=== PATIENT | female | born 1965 | race Caucasian/White ===

== ENCOUNTER → 2019-04-17 09:55 | Outpatient (BNVA) | payer MEDICARE, MEDICAID, SELFPAY | PROVIDERS: Family Provider Family Medicine; PCP Family Medicine; Visit Provider Specialist | DX: G43.011 Migraine without aura, intractable, with status migrainosus (principal) | CPT/HCPCS: 99213 ==

== ENCOUNTER → 2019-07-18 10:53 | Outpatient (BNVA) | payer MEDICARE, MEDICAID, SELFPAY | PROVIDERS: Family Provider Family Medicine; PCP Family Medicine; Visit Provider Specialist | DX: G43.711 Chronic migraine without aura, intractable, with status migrainosus (principal) | CPT/HCPCS: 99213 ==

== ENCOUNTER 2019-09-07 11:11 | Outpatient (CLI) | payer MEDICARE, MEDICAID, SELFPAY ==
--- NOTE | 2019-09-07 11:20 | MM_ITS ---
WS: [id number] BILATERAL DIGITAL SCREENING MAMMOGRAM WITH CAD CLINICAL INFORMATION: SCREENING HISTORY: Screening mammogram. No current complaints. COMPARISON: June 27, 2018 TECHNIQUE: Bilateral CC and MLO views. FINDINGS: Fatty-replaced breasts bilaterally. No suspicious focal mass, asymmetry, calcifications, or naval architect ural distortion. No evidence of malignancy. MM/[id number] IMPRESSION: BI-RADS: 1-Negative FOLLOW UP: 1 Year Follow-up Recommend return to annual screening mammography.
== END 2019-09-07 11:12 | disposition home or self-care (01) ==
LOC: RADSHAW 11:19
PROVIDERS: PCP Family Medicine; Visit Provider Family Medicine
DX: Z12.31 Encounter for screening mammogram for malignant neoplasm of breast (principal)
CPT/HCPCS: 77067

== ENCOUNTER → 2019-10-08 14:48 | Outpatient (BNVA) | payer MEDICARE, MEDICAID, SELFPAY | PROVIDERS: Family Provider Family Medicine; PCP Family Medicine; Visit Provider Specialist | DX: G43.711 Chronic migraine without aura, intractable, with status migrainosus (principal) | CPT/HCPCS: 99213 ==

== ENCOUNTER → 2020-02-20 09:31 | Outpatient (BNVA) | payer MEDICARE, MEDICAID, SELFPAY | PROVIDERS: Family Provider Family Medicine; PCP Family Medicine; Visit Provider Specialist | DX: G43.711 Chronic migraine without aura, intractable, with status migrainosus (principal) | CPT/HCPCS: 99213 ==

== ENCOUNTER → 2020-07-16 10:33 | Outpatient (BNVA) | payer MEDICARE, MEDICAID, SELFPAY | PROVIDERS: Family Provider Family Medicine; PCP Family Medicine; Visit Provider Specialist | DX: G43.711 Chronic migraine without aura, intractable, with status migrainosus (principal); H90.5 Unspecified sensorineural hearing loss | CPT/HCPCS: 99213; 99214 ==

== ENCOUNTER 2020-09-08 11:25 | Outpatient (CLI) | payer MEDICARE, MEDICAID, SELFPAY ==
--- NOTE | 2020-09-08 11:32 | MM_ITS ---
WS: [id number] BILATERAL SCREENING DIGITAL MAMMOGRAM WITH CAD HISTORY: SCREENING COMPARISON: 09/07/2019 and 06/27/2018 Bilateral CC and MLO views submitted. Computer aided detection analyzed. Breast composition: There are scattered areas of fibroglandular density. No suspicious masses, microc alcifications or architectural distortion. MM/[id number] IMPRESSION: BI-RADS: 1-Negative FOLLOW UP: 1 Year Follow-up
== END 2020-09-08 11:26 | disposition home or self-care (01) ==
LOC: RADSHAW 11:28
PROVIDERS: PCP Family Medicine; Visit Provider Family Medicine
DX: Z12.31 Encounter for screening mammogram for malignant neoplasm of breast (principal)
CPT/HCPCS: 77067

== ENCOUNTER 2020-12-04 12:42 | Outpatient (CLI) | payer MEDICARE, MEDICAID, SELFPAY ==
--- NOTE | 2020-12-04 13:45 | MR_ITS ---
WS: [id number] MRI RIGHT ELBOW without CONTRAST. COMPARISON: Radiograph 10/28/2020. Multiplanar, multisequence imaging is performed without contrast. Patient was unable to remain still for this examination. Patient was unable to complete the examinati on. Normal alignment at the elbow joint. No fracture is identified. No marrow edema. No joint effusion. Q uality of this study is not sufficient to exclude tendon or ligament tears. There is not a significan t amount of joint effusion or marrow edema. Radial tubercle was not included on the axial images. MR/MR elbow RT wo con* [id number] IMPRESSION: 1. Incomplete evaluation of the RIGHT elbow. Patient was unable to complete th is examination. 2. No fracture or marrow edema or dislocation. 3. Cannot exclude tendon or ligament injury on this examination.
== END 2020-12-04 12:43 | disposition home or self-care (01) ==
PROVIDERS: PCP Family Medicine; Visit Provider Orthopaedic Surgery
DX: M25.521 Pain in right elbow (principal)
CPT/HCPCS: 73221

== ENCOUNTER → 2021-01-13 10:18 | Outpatient (BNVA) | payer MEDICARE, MEDICAID, SELFPAY | PROVIDERS: PCP Family Medicine; Visit Provider Specialist | DX: G43.711 Chronic migraine without aura, intractable, with status migrainosus (principal); H91.90 Unspecified hearing loss, unspecified ear | CPT/HCPCS: 99213; 99214 ==

== ENCOUNTER → 2021-07-14 10:33 | Outpatient (BNVA) | payer MEDICARE, MEDICAID, SELFPAY | PROVIDERS: PCP Family Medicine; Visit Provider Specialist | DX: G43.711 Chronic migraine without aura, intractable, with status migrainosus (principal); H91.90 Unspecified hearing loss, unspecified ear | CPT/HCPCS: 99214 ==

== ENCOUNTER 2021-09-07 13:26 | Outpatient (CLI) | payer MEDICARE, MEDICAID, SELFPAY ==
--- NOTE | 2021-09-07 13:45 | MR_ITS ---
WS: [id number] MRI BRAIN WITHOUT CONTRAST HISTORY: G43.711 - Chronic migraine without aura, intractable. COMPARISON: 06/02/2010 TECHNIQUE: Diffusion imaging, multiplanar T1, T2 and FLAIR imaging obtained. Due to patient's limitations study is compromised by motion artifact. No evidence for acute infarct or hemorrhage. Lima-white matter differentiation is normal. Scattered T 2 and FLAIR signal hyperintensities predominantly in the subcortical white matter. Taking into consid eration the amount of motion the pattern has not significantly changed or progressed since the prior study. No large territory infarct. No hemorrhage. No remote or acute infarcts are volume loss. Ventricles and extra-axial spaces are normal. No inferior displacement of cerebellar tonsils. The sella turcica and pituitary gland are unremarkabl e. Dural venous sinuses and [place] demonstrate no abnormality on this unenhanced studies. Paranasal sinuses: Clear. Mastoid air cells: Normal. Calvarium and scalp: Intact. MR/MR head wo con* [id number] IMPRESSION: 1. Study compromised by motion artifact. 2. Scattered small vessel ischemic disease in the subcortical white matter. Si milar to the prior study from 2010. Differential as before includes diabetes, h ypertension and smoking history. No acute infarct.
== END 2021-09-07 13:27 | disposition home or self-care (01) ==
LOC: RAD 13:32
PROVIDERS: PCP Family Medicine; Visit Provider Specialist
DX: G43.711 Chronic migraine without aura, intractable, with status migrainosus (principal)
CPT/HCPCS: 70551

== ENCOUNTER 2021-10-12 10:04 | Outpatient (CLI) | payer MEDICARE, MEDICAID, SELFPAY ==
--- NOTE | 2021-10-12 10:09 | MM_ITS ---
WS: [id number] SCREENING DIGITAL MAMMOGRAM WITH CAD HISTORY: SCREENING COMPARISON: 09/08/2020, 09/07/2019 Bilateral CC and MLO views submitted. Computer aided detection analyzed. Breast composition: The breasts are almost entirely fatty. No suspicious masses, microcalcifications or architectural distortion. MM/[place] [id number] IMPRESSION: BI-RADS: 1-Negative FOLLOW UP: 1 Year Follow-up
== END 2021-10-12 10:05 | disposition home or self-care (01) ==
LOC: RAD 10:04
PROVIDERS: PCP Family Medicine; Visit Provider Family Medicine
DX: Z12.31 Encounter for screening mammogram for malignant neoplasm of breast (principal)
CPT/HCPCS: 77067

== ENCOUNTER → 2021-10-20 11:01 | Outpatient (BNVA) | payer MEDICARE, MEDICAID, SELFPAY | PROVIDERS: PCP Family Medicine; Visit Provider Specialist | DX: G43.711 Chronic migraine without aura, intractable, with status migrainosus (principal) | CPT/HCPCS: 99213; 99214 ==

== ENCOUNTER → 2022-05-11 11:38 | Outpatient (BNVA) | payer MEDICARE, MEDICAID, SELFPAY | PROVIDERS: PCP Family Medicine; Visit Provider Specialist | DX: G43.711 Chronic migraine without aura, intractable, with status migrainosus (principal) | CPT/HCPCS: 99214 ==

== ENCOUNTER 2022-10-27 09:59 | Outpatient (CLI) | payer MEDICARE, MEDICAID, SELFPAY ==
--- NOTE | 2022-10-27 10:10 | MM_ITS ---
WS: [id number] BILATERAL SCREENING DIGITAL TOMOSYNTHESIS MAMMOGRAM WITH CAD HISTORY: SCREENING COMPARISON: 10/12/2021 and 09/08/2020 Bilateral CC and MLO views with tomosynthesis and synthetic mammography submitted. Computer aided det ection analyzed. Breast composition: The breasts are almost entirely fatty. No suspicious masses, microcalcifications or architectural distortion. IMPRESSION: MM/[place] [id number] BI-RADS: 1-Negative FOLLOW UP: 1 Year Follow-up
== END 2022-10-27 10:00 | disposition home or self-care (01) ==
LOC: RAD 10:02 → MOBLMAM 10:09
PROVIDERS: PCP Family Medicine; Visit Provider Family Medicine
DX: Z12.31 Encounter for screening mammogram for malignant neoplasm of breast (principal)
CPT/HCPCS: 77063; 77067

== ENCOUNTER → 2023-05-10 09:59 | Outpatient (BNVA) | payer MEDICARE, MEDICAID, SELFPAY | PROVIDERS: PCP Family Medicine; Visit Provider Specialist | DX: G43.711 Chronic migraine without aura, intractable, with status migrainosus (principal); M54.2 Cervicalgia | CPT/HCPCS: 99214 ==

== ENCOUNTER → 2023-06-23 09:42 | Outpatient (BNVA) | payer MEDICARE, MEDICAID, SELFPAY | PROVIDERS: PCP Family Medicine; Visit Provider Anesthesiology Pain Medicine | DX: M25.78 Osteophyte, vertebrae (principal); M47.896 Other spondylosis, lumbar region; G89.29 Other chronic pain; M54.12 Radiculopathy, cervical region; M25.521 Pain in right elbow; G43.711 Chronic migraine without aura, intractable, with status migrainosus | CPT/HCPCS: 72040; 72110; 99204 ==

== ENCOUNTER → 2023-07-04 14:03 | Outpatient (BNVA) | payer MEDICARE, MEDICAID, SELFPAY | PROVIDERS: PCP Family Medicine; Visit Provider Anesthesiology Pain Medicine | DX: M79.18 Myalgia, other site (principal); M54.9 Dorsalgia, unspecified; M25.521 Pain in right elbow; G43.711 Chronic migraine without aura, intractable, with status migrainosus; M54.12 Radiculopathy, cervical region | CPT/HCPCS: 20553; 99214 ==

== ENCOUNTER 2023-08-03 11:08 | Outpatient (CLI) | payer MEDICARE, MEDICAID, SELFPAY | END 2023-08-03 11:09 | disposition home or self-care (01) | LOC: RAD 11:08 | PROVIDERS: PCP Family Medicine; Visit Provider Anesthesiology Pain Medicine | DX: M54.12 Radiculopathy, cervical region (principal); M25.521 Pain in right elbow; G43.711 Chronic migraine without aura, intractable, with status migrainosus | CPT/HCPCS: 99214 ==

== ENCOUNTER → 2023-08-24 12:49 | Outpatient (BNVA) | payer MEDICARE, MEDICAID, SELFPAY | PROVIDERS: PCP Family Medicine; Visit Provider Anesthesiology Pain Medicine | DX: M79.18 Myalgia, other site (principal); M25.521 Pain in right elbow; G43.711 Chronic migraine without aura, intractable, with status migrainosus; M54.12 Radiculopathy, cervical region | CPT/HCPCS: 20553; 99214; J1010; J3490 ==

== ENCOUNTER 2024-02-13 08:29 | Outpatient (CLI) | payer MEDICARE, MEDICAID, SELFPAY ==
--- NOTE | 2024-02-13 08:40 | MM_ITS ---
WS: [id number] DIAGNOSTIC BILATERAL DIGITAL BREAST TOMOSYNTHESIS MAMMOGRAPHY WITH CAD LEFT breast ultrasound, limited HISTORY: MASTODYNIA COMPARISON: 10/27/2022, 10/12/2021 TECHNIQUE: Bilateral craniocaudad, mediolateral oblique, and mediolateral views are submitted with to mosynthesis and SM. Spot compression LEFT CC and MLO. Computer aided detection utilized. Breast composition: The breasts are almost entirely fatty. There are a few very minimal scattered calcifications. There is a superficial mass in the LEFT breast at 6:00 middle depth measuring 12 x 10 x 11 mm. This will be evaluated by ultrasound. LEFT breast ultrasound, limited as an epidermal complex fluid collection corresponding to the palpabl e mass in the mass visible on mammography. Masses near 4 o'clock position in the epidermal layer. Com plex collection measures 1.6 x 0.4 x 1.4 cm with minimal peripheral vascularity. There is no tract ex tending superficial. MM/MM diag BI tomosynthesis [id number] IMPRESSION: BI-RADS: 2 - Benign. FOLLOW UP: 1 Year Follow-up Palpable abnormality corresponds to a complex mass which is epidermal in locati on. This is most likely an infected hair follicle or epidermal cyst with inflam mation.
== END 2024-02-13 08:30 | disposition home or self-care (01) ==
PROVIDERS: PCP Family Medicine; Visit Provider Family Medicine
DX: N60.02 Solitary cyst of left breast (principal); R92.313 Mammographic fatty tissue density, bilateral breasts
CPT/HCPCS: 76642; 77062; G0279

== ENCOUNTER 2024-06-27 16:22 | Inpatient (IN) | payer MEDICARE, MEDICAID, SELFPAY ==
--- OUTSIDE RECORDS SUMMARY | 2024-06-27 16:26 | XMS_ITS | Encounter Summary ---
Author Organization [facility] Address [address] [place] [address] Care Team Providers Care Hydraulic Dredge Operator Name Role Phone Wilda Sloan MD Primary Care Provider [phone] Encounter Details Date Type Department Care Team (Late st Contact Info) Description 06/06/2024 External Device Data [facility] ABSTRACTION Provider, Abstract NO ADDRESS ON FILE Social History Tobacco Use Types Packs/Day Years Used Date Smoking Tobacco: Never Smokeless Tobacco: Never Feeling Safe Answer Date Recorded Are you in a relationship wi th someone who hurts you emotionally and/or physically? No 02/06/2024 Comments No Sex and Gender Information Value Date Recorded Sex Assigned at Not on file Legal Sex Female 4:41 AM CUSTOM CLOTHIER Gender Identity Not on file Sexual Orientation Not on file documented as of this encounter Plan of Treatment Not on file documented as of this encounter Visit Diagnoses Not on filedocumented in this encounter Care Teams Hydraulic Dredge Operator Relationship Specialty Start Date End Date Wilda Sloan MD [address] [place] [address] PCP - General Family Practice 10/28/20 documented as of this encounter
--- OUTSIDE RECORDS SUMMARY | 2024-06-27 16:26 | XMS_ITS | Encounter Summary ---
Author Organization [facility] Address [address] [place] [address] Care Team Providers Care Micromatic Hone Operator Name Role Phone Unavailable Primary Care Provider Unavailabl e Reason for Referral * Outpatient Services (Routine) - Closed Specialty Diagnoses / Procedures Referred By Contac t Referred To Contact Diagnoses Abnormal mammogram, unspecified Procedures MAMMO DIGITAL DIAG BILAT Wilda Sloan MD [address] [place] [address] Phone: tel: fax: [facility] Pre-Registration [place] CALL TO MAKE APPOINTMENT ONLY [address] [place] [address] Phone: tel: fax: Referral ID Status Reason Start Date Expiration Date V isits Requested Visits Authorized [id number] Closed [facility]ULE ([facility]) 04/25/2012 05/26/2013 1 1 RAL SCIENCES DEPARTMENT CHAIR Encounter Details Date Type Department Care Team (Latest Contact Info) Description 04/25/2012 Ancillary Orders [facility] Pre-Registration [place] CALL TO MAKE APPOINTMENT ONLY [address] [place] [address] Wilda Sloan MD [address] [place] [address] Abnormal mammogram, unspecified Social History Tobacco Use Types Packs/Day Years Used Date Smoking Tobacco: Never Assessed Comments Unknown Sex and Gender Information Value Date Recorded Sex Assigned at Not on file Legal Sex Female 7:07 AM NATURAL SCIENCES DEPARTMENT CHAIR Gender Identity Not on file Sexual Orientation Not on file Occupation Industry Job Start Date Job End Date Not on file Not on file Not on file Not on file documented as of this encounter Plan of Treatment Not on file documented as of this encounter Results * MAMMO DIGITAL DIAG BILAT (05/24/2012 1:28 PM NATURAL SCIENCES DEPARTMENT CHAIR) Anatomical Region Laterality Modality Breast Bilateral Mammography 05/24/2012 12:4 8 PM NATURAL SCIENCES DEPARTMENT CHAIR Narrative 05/24/2012 3:23 PM NATURAL SCIENCES DEPARTMENT CHAIR BILATERAL DIAGNOSTIC MAMMOGRAM 05/24/2012 The patient had a baseline exam a year ago and had additional evaluation for two very small nodules side by side on the right which were not seen sonographically and this is a second six-month followup on the right and yearly followup on the left. ??She has no complaints. Bilateral craniocaudal and oblique views show predominantly fatty-replaced breast tissue. ??The two tiny nodules on the right are stable. ??No suspicious masses are identified. ??A few coarse benign type calcifications are seen which are stable. ??No discrete abnormality is seen on the left. ??There is no significant change compared with prior exams of 11/23/2011, 05/20/2011, and 05/05/2011. This digital mammogram was also analyzed by the Computer Aided Detection System (CAD), [employer] Image[employer]aturecker, Version 8.3. CONCLUSION ??No significant mammographic change is seen. ??I would now recommend followup screening mammogram in one year. ?? Patient received a result/recommendation letter. ?? KB/ekp ? - uploaded from [employer] Procedure Note Aurora Valenzuela MD - 05/24/2012 BILATERAL DIAGNOSTIC MAMMOGRAM 05/24/2012 The patient had a baseline exam a year ago and had additional evaluation for two very small nodules side by side on the right which were not seen sonographically and this is a second six-month followup on the right and yearly followup on the left. She has no complaints. Bilateral craniocaudal and oblique views show predominantly fatty-replaced breast tissue. The two tiny nodules on the right are stable. No suspicious masses are identified. A few coarse benign type calcifications are seen which are stable. No discrete abnormality is seen on the left. There is no significant change compared with prior exams of 11/23/2011, 05/20/2011, and 05/05/2011. This digital mammogram was also analyzed by the Computer Aided Detection System (CAD), [employer] Image[employer]aturecker, Version 8.3. CONCLUSION No significant mammographic change is seen. I would now recommend followup screening mammogram in one year. Patient received a result/recommendation letter. KB/ekp - uploaded from [employer] us Wilda Sloan MD MAMMO ORDERABLES Final Res ult documented in this encounter Visit Diagnoses Diagnosis Abnormal mammogram, unspecified Abnormal mammogram, unspecified documented in this encounter
--- OUTSIDE RECORDS SUMMARY | 2024-06-27 16:26 | XMS_ITS | Encounter Summary ---
Author Organization [facility] Address [address] [place] [address] Care Team Providers Care Cd Storage And Materials Make Up Helper Name Role Phone Unavailable Primary Care Provider Unavailabl e Reason for Referral * Outpatient Services (Routine) - Closed Specialty Diagnoses / Procedures Referred By Contac t Referred To Contact Diagnoses Other (abnormal) findings on radiological examination of breast Procedures MAMMO BREAST US RT Wilda Sloan MD [address] [place] [address] Phone: tel: fax: Referral ID Status Reason Start Date Expiration Date Visits Re quested Visits Authorized [id number] Closed 05/11/2011 05/10/2012 1 1 CONDITIONER HELPER Encounter Details Date Type Department Care Team (Latest Contact Info) Description 05/11/2011 Ancillary Orders [facility] [address] [address] Wilda Sloan MD [address] [place] [address] Other (abnormal) findings on radiological examination of breast Social History Tobacco Use Types Packs/Day Years Used Date Smoking Tobacco: Never Assessed Comments Unknown Sex and Gender Information Value Date Recorded Sex Assigned at Not on file Legal Sex Female 7:07 AM LEAF CONDITIONER HELPER Gender Identity Not on file Sexual Orientation Not on file documented as of this encounter Plan of Treatment Not on file documented as of this encounter Results * (ABNORMAL) MAMMO BREAST US RT (05/20/2011 2:55 PM LEAF CONDITIONER HELPER) Anatomical Region Laterality Modality Breast Right Ultrasound 05/20/2011 2:00 PM LEAF CONDITIONER HELPER Impressions 05/24/2011 9:45 AM LEAF CONDITIONER HELPER IMPRESSION: ??The patient returned for further evaluation on the right. There are two adjacent 5 mm nodules identified approximately at the 10 o'clock position. ??I suspect these represent small intramammary lymph nodes. ??I would recommend a right diagnostic mammogram be performed in six months to assess stability as these nodules were not convincingly identified sonographically. ?? Patient received the result and recommendation letter. KG/eaw ??D: ??05/20/11 3:27 PM ?T: ??05/21/11 1:14 PM Narrative 05/24/2011 9:45 AM LEAF CONDITIONER HELPER REASON FOR EXAM: ??Patient is returning for further evaluation on the right as requested following screening study of 05/05/2011 IMAGING PERFORMED: ??Right lateral, magnification views in the CC and lateral projection and directed right breast ultrasound COMPARISON(S): ??The study of 05/05/2011 is the patient's baseline exam TISSUE COMPOSITION: ??Average, scattered fibroglandular densities FAMILY HX.-BREAST Ca: ??Negative MAMMOGRAPHIC FINDINGS: ?? RIGHT BREAST: ??Following additional views the nodules are very well-defined, of low to medium density. They favor a probable intramammary lymph node and therefore my index of suspicion is low. Since this is a baseline exam, I would recommend a six-month followup on the right be performed to assess stability. ?? This digital mammogram was also analyzed by the Computer Aided Detection System (CAD), [employer] Vent[employer]cker, Version 8.3. RIGHT BREAST ULTRASOUND: We began our evaluation sonographically as requested following the screening study. ??We evaluated the right upper outer quadrant to assess for two closely adjacent 5 mm nodules. ??No suspicious findings were identified, a few vascular structures were noted, and at the 10:30 location, 5 cm from the nipple, there was a tiny collection of ductal fluid. ??The two nodules noted on the mammogram were not convincingly identified on the ultrasound therefore additional mammographic images were obtained. ?? Procedure Note Ayana Mogran MD - 05/24/2011 REASON FOR EXAM: Patient is returning for further evaluation on the right as requested following screening study of 05/05/2011 IMAGING PERFORMED: Right lateral, magnification views in the CC and lateral projection and directed right breast ultrasound COMPARISON(S): The study of 05/05/2011 is the patient's baseline exam TISSUE COMPOSITION: Average, scattered fibroglandular densities FAMILY HX.-BREAST Ca: Negative MAMMOGRAPHIC FINDINGS: RIGHT BREAST: Following additional views the nodules are very well-defined, of low to medium density. They favor a probable intramammary lymph node and therefore my index of suspicion is low. Since this is a baseline exam, I would recommend a six-month followup on the right be performed to assess stability. This digital mammogram was also analyzed by the Computer Aided Detection System (CAD), [employer]cker, Version 8.3. RIGHT BREAST ULTRASOUND: We began our evaluation sonographically as requested following the screening study. We evaluated the right upper outer quadrant to assess for two closely adjacent 5 mm nodules. No suspicious findings were identified, a few vascular structures were noted, and at the 10:30 location, 5 cm from the nipple, there was a tiny collection of ductal fluid. The two nodules noted on the mammogram were not convincingly identified on the ultrasound therefore additional mammographic images were obtained. IMPRESSION IMPRESSION: The patient returned for further evaluation on the right. There are two adjacent 5 mm nodules identified approximately at the 10 o'clock position. I suspect these represent small intramammary lymph nodes. I would recommend a right diagnostic mammogram be performed in six months to assess stability as these nodules were not convincingly identified sonographically. Patient received the result and recommendation letter. FREDO/kishor us Wilda Sloan MD MAMMO ORDERABLES Final Res ult documented in this encounter Visit Diagnoses Diagnosis Other (abnormal) findings on radiological examination of breast Other (abnormal) findings on radiological examination of breast documented in this encounter
--- OUTSIDE RECORDS SUMMARY | 2024-06-27 16:26 | XMS_ITS | Encounter Summary ---
Author Organization [facility] Address [address] [place] [address] Care Team Providers Care Parts Salesman Name Role Phone Unavailable Primary Care Provider Unavailabl e Reason for Referral * Outpatient Services (Routine) - Closed Specialty Diagnoses / Procedures Referred By Contac t Referred To Contact Diagnoses Other (abnormal) findings on radiological examination of breast Procedures MAMMO DIGITAL DIAG UNI RIGHT Wilda Sloan MD [address] [place] [address] Phone: tel: fax: Referral ID Status Reason Start Date Expiration Date Visits Re quested Visits Authorized [id number] Closed 05/20/2011 05/19/2012 1 1 TRICAL RESEARCH ENGINEER Encounter Details Date Type Department Care Team (Latest Contact Info) Description 05/20/2011 Ancillary Orders [facility] [address] [address] Wilda Sloan MD [address] [place] [address] Other (abnormal) findings on radiological examination of breast Social History Tobacco Use Types Packs/Day Years Used Date Smoking Tobacco: Never Assessed Comments Unknown Sex and Gender Information Value Date Recorded Sex Assigned at Not on file Legal Sex Female 7:07 AM ELECTRICAL RESEARCH ENGINEER Gender Identity Not on file Sexual Orientation Not on file Occupation Industry Job Start Date Job End Date Not on file Not on file Not on file Not on file documented as of this encounter Plan of Treatment Not on file documented as of this encounter Results * (ABNORMAL) MAMMO DIGITAL DIAG UNI RIGHT (05/20/2011 2:56 PM ELECTRICAL RESEARCH ENGINEER) Anatomical Region Laterality Modality Breast Right Mammography 05/20/2011 2:36 PM ELECTRICAL RESEARCH ENGINEER Impressions 05/24/2011 9:45 AM ELECTRICAL RESEARCH ENGINEER IMPRESSION: ??The patient returned for further evaluation on the right. There are two adjacent 5 mm nodules identified approximately at the 10 o'clock position. ??I suspect these represent small intramammary lymph nodes. ??I would recommend a right diagnostic mammogram be performed in six months to assess stability as these nodules were not convincingly identified sonographically. ?? Patient received the result and recommendation letter. KG/kishor ??D: ??05/20/11 3:27 PM ?T: ??05/21/11 1:14 PM Narrative 05/24/2011 9:45 AM ELECTRICAL RESEARCH ENGINEER REASON FOR EXAM: ??Patient is returning for [...] by the Computer Aided Detection System (CAD), [employer] ImageHibernacker, Version 8.3. RIGHT BREAST ULTRASOUND: We began [...] images were obtained. ?? Procedure Note Ayana Morgan MD - 05/24/2011 REASON FOR EXAM: Patient [...] by the Computer Aided Detection System (CAD), [employer], Version 8.3. RIGHT BREAST ULTRASOUND: We began [...]
--- OUTSIDE RECORDS SUMMARY | 2024-06-27 16:26 | XMS_ITS | Encounter Summary ---
Author Organization [facility] Address [address] [place] [address] Care Team Providers Care Mathematical Physicist Name Role Phone Unavailable Primary Care Provider Unavailabl e Reason for Referral * Outpatient Services (Routine) - Closed Specialty Diagnoses / Procedures Referred By Contac t Referred To Contact Diagnoses Abnormal mammogram, unspecified Procedures MAMMO DIGITAL DIAG UNI RIGHT Wilda Sloan MD [address] [place] [address] Phone: tel: fax: [facility] Pre-Registration [place] CALL TO MAKE APPOINTMENT ONLY [address] [place] [address] Phone: tel: fax: Referral ID Status Reason Start Date Expiration Date V isits Requested Visits Authorized [id number] Closed [facility] TO SCHEDULE ([facility]) 10/20/2011 10/19/2012 1 1 Encounter Details Date Type Department Care Team (Latest Contact Info) Description 10/20/2011 Ancillary Orders [facility] Pre-Registration [place] CALL TO MAKE APPOINTMENT ONLY [address] [place] [address] Wilda Sloan MD [address] [place] [address] Abnormal mammogram, unspecified Social History Tobacco Use Types Packs/Day Years Used Date Smoking Tobacco: Never Assessed Comments Unknown Sex and Gender Information Value Date Recorded Sex Assigned at Not on file Legal Sex Female 7:07 AM LANDSCAPE CONTRACTOR Gender Identity Not on file Sexual Orientation Not on file Occupation Industry Job Start Date Job End Date Not on file Not on file Not on file Not on file documented as of this encounter Plan of Treatment Not on file documented as of this encounter Results * MAMMO DIGITAL DIAG UNI RIGHT (11/23/2011 11:24 AM CDT) Anatomical Region Laterality Modality Breast Right Mammography 11/23/2011 11:0 8 AM CDT Impressions 11/24/2011 3:16 PM CDT IMPRESSION: Satisfactory and stable six-month followup right mammogram, as noted. I would recommend bilateral mammogram in six months, with the plan that if there has been no change, we can resume annual mammograms at that time. KARMA/kishor ? - uploaded from [employer] - Narrative 11/24/2011 3:16 PM CDT RIGHT DIGITAL DIAGNOSTIC MAMMOGRAM: Repeat examination on this 46-year-old female is compared with previous 05/05/2011, and additional images and ultrasound of 05/20/2011. This was made as a six-month followup because of a tiny group of well-defined small nodules upper outer. ??These are again noted and appear stable. ??Breast tissue is again primarily of fatty density. ??No significant change is identified. This digital mammogram was also analyzed by the Computer Aided Detection System (CAD), [employer] ImageChecker, Version 8.3. ?? The patient received a result/recommendation letter. ?? Procedure Note Lyla Burt MD - 11/24/2011 RIGHT DIGITAL DIAGNOSTIC MAMMOGRAM: Repeat examination on this 46-year-old female is compared with previous 05/05/2011, and additional images and ultrasound of 05/20/2011. This was made as a six-month followup because of a tiny group of well-defined small nodules upper outer. These are again noted and appear stable. Breast tissue is again primarily of fatty density. No significant change is identified. This digital mammogram was also analyzed by the Computer Aided Detection System (CAD), [employer] ImageBonzerDargcker, Version 8.3. The patient received a result/recommendation letter. IMPRESSION IMPRESSION: Satisfactory and stable six-month followup right mammogram, as noted. I would recommend bilateral mammogram in six months, with the plan that if there has been no change, we can resume annual mammograms at that time. KARMA/kishor - uploaded from [employer] - us Wilda Sloan MD MAMMO ORDERABLES Final Res ult documented in this encounter Visit Diagnoses Diagnosis Abnormal mammogram, unspecified Abnormal mammogram, unspecified documented in this encounter
--- OUTSIDE RECORDS SUMMARY | 2024-06-27 16:26 | XMS_ITS | Encounter Summary ---
Author Organization [facility] Address [address] [place] [address] Care Team Providers Care Band Leader Name Role Phone Unavailable Primary Care Provider Unavailabl e Reason for Referral * Outpatient Services (Routine) - Closed Specialty Diagnoses / Procedures Referred By Contac t Referred To Contact Diagnoses Other screening mammogram Procedures MAMMO SCREENING BILAT Wilda Sloan MD [address] [place] [address] Phone: tel: fax: Referral ID Status Reason Start Date Expiration Date Visits Re quested Visits Authorized [id number] Closed 05/06/2011 05/05/2012 1 1 TORIAL CLEANER Encounter Details Date Type Department Care Team (Late st Contact Info) Description 05/06/2011 Ancillary Orders [facility] Imaging External Read [address] [place] [address] Wilda Sloan MD [address] [place] [address] Other screening mammogram Social History Tobacco Use Types Packs/Day Years Used Date Smoking Tobacco: Never Assessed Comments Unknown Sex and Gender Information Value Date Recorded Sex Assigned at Not on file Legal Sex Female 7:07 AM JANITORIAL CLEANER Gender Identity Not on file Sexual Orientation Not on file documented as of this encounter Plan of Treatment Not on file documented as of this encounter Results * MAMMO SCREENING BILAT (05/06/2011 3:06 PM JANITORIAL CLEANER) Anatomical Region Laterality Modality Breast Bilateral Mammography Addenda Addendum by Crispin Steiner MD on 05/10/2011 10:29 AM JANITORIAL CLEANER BILATERAL SCREENING MAMMOGRAM WITH CAD: This is the patient's baseline study. ?? Large breasts which are primarily fatty-replaced. ??Scattered areas of benign type nodularity. ??There is one area which are more well-defined nodules and those appear to be two adjacent nodules on the CC view. ?? Together they measure approximately 10 x 6 mm. ??Individually, they are in the 5 x 6 mm range. ??They appear to be superiorly positioned on the MLO view. ??No associated microcalcifications and no suspicious areas of distortion in either breast. This mammogram was also analyzed by the Computer Aided Detection system (CAD), [email or web address] Image[employer].TV (Wayin)cker, Version 3.1. SUMMARY: ?? 1. ??Lobulated nodule or adjacent nodules in the upper outer aspect of the right breast. ??Since this is the patient's baseline study, it would be reasonable to have her return for sonographic evaluation. ??That would help to distinguish between cysts and solid entities or perhaps low-lying intramammary lymph node. 2. ??No suspicious left-sided findings. BH/eaw ??D: ??05/07/11 10:01 AM ?T: ??05/07/11 2:12 PM Narrative 05/07/2011 10:06 AM JANITORIAL CLEANER Bilateral Mammogram Reason for Exam: Screening Comparison: Comparison is made with the prior exam(s) dated 04.09.08+02.28.07 Findings: Bilateral CC and MLO views were obtained. This examination was reviewed with the aid of a computer-aided detection system(CAD). The breast tissue is dense. Scattered benign type nodularity. No significant new findings since the prior mammogram(s). Procedure Note Crispin Steiner MD - 05/10/2011 Bilateral Mammogram Reason for Exam: Screening Comparison: Comparison is made with the prior exam(s) dated102.28.07 Findings: Bilateral CC and MLO views were obtained. This examination was reviewed with the aid of a computer-aided detectionsystem(CAD). The breast tissue is dense. Scattered benign type nodularity. No significant new findings since the prior mammogram(s). us Wilda Sloan MD MAMMO ORDERABLES Edited Re fallon - Final documented in this encounter Visit Diagnoses Diagnosis Other screening mammogram documented in this encounter
--- OUTSIDE RECORDS SUMMARY | 2024-06-27 16:26 | XMS_ITS | Encounter Summary ---
Author Organization [facility] Address [address] [place] [address] Care Team Providers Care Steel Tier Name Role Phone Wilda Sloan MD Primary Care Provider [phone] Encounter Details Date Type Department Care Team (Late st Contact Info) Description 06/12/2024 External Device Data STL ABSTRACTION Provider, Abstract [...] on file Legal Sex Female 4:41 AM INDEPENDENT FREIGHT AGENT Gender Identity Not on file Sexual Orientation Not on file documented as of this encounter Plan of Treatment Not on file documented as of this encounter Visit Diagnoses Not on filedocumented in this encounter Care Teams Steel Tier Relationship Specialty Start Date End Date Wilda Sloan MD [address] [place] [address] PCP - General Family Practice 10/28/20 documented as of this encounter
--- OUTSIDE RECORDS SUMMARY | 2024-06-27 16:27 | XMS_ITS | Clinical Summary ---
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 AM MACHINE LEARNING INTERN Gender Identity Not on file Sexual Orientation Not on file Occupation Industry Job Start Date Job End Date Not on file Not on file Not on file Not on file Plan of Treatment Health Maintenance Due Date Last Done Comments DTAP/TDAP/TD VACCINES (1 - Tdap) 01/04/1984 HEPATITIS B VACCINES (1 of 3 - 19+ 3-dose series) 01/04/1984 HPV/Cotest (21-29) 1986 PAP SMEAR 1986 CERVICAL CANCER SCREENING 1995 HPV/Cotest (30-65) 1995 PAP SMEAR 1995 COLORECTAL SCREENING 2010 Colorectal Cancer Screening 2010 FIT-DNA Q 3 years 2010 FIT/FOBT Q 1 year 2010 Flex Sig/CT Colonography Q 5 years 2010 BREAST CANCER SCREENING 05/24/2013 05/25/19 13, 11/23/2011, 05/20/2011, Additional history exists ZOSTER VACCINE (1 of 2) 2015 INFLUENZA VACCINE (#1) 2023 PNEUMOCOCCAL VACCINE 0-49 YEARS Aged Out No longer eligible based on patient's age to complete this topic Procedures Procedure Name Priority Date/Time Associated Diagnosis Comments MAMMO DIAGNOSTIC BILATERAL W OR WO CAD Routine 05/24/2012 1:28 PM MACHINE LEARNING INTERN Abnormal mammogram, unspecified from Last 3 Months or Most Recently Relevant to Health Maintenance Results * MAMMO DIGITAL DIAG BILAT (05/24/2012 1:28 PM MACHINE LEARNING INTERN) Anatomical Region Laterality Modality Breast Bilateral Mammography 05/24/2012 12:4 8 PM MACHINE LEARNING INTERN Narrative 05/24/2012 3:23 PM MACHINE LEARNING INTERN BILATERAL DIAGNOSTIC MAMMOGRAM 05/24/2012 The patient had [...] by the Computer Aided Detection System (CAD), [employer] Imagevaluescopecker, Version 8.3. CONCLUSION ??No significant mammographic change is seen. ??I would now recommend followup screening mammogram in one year. ?? Patient received a result/recommendation letter. ?? KB/ekp ? - uploaded from [employer] Procedure Note Aurora Valenzuela MD - 05/24/2012 [...] by the Computer Aided Detection System (CAD), [employer] ImageChecker, Version 8.3. CONCLUSION No significant mammographic change is seen. I would now recommend followup screening mammogram in one year. Patient received a result/recommendation letter. LIVIER/brody - uploaded from [employer] us Wilda Sloan MD MAMMO ORDERABLES Final Res ult from Last 3 Months or Most Recently Relevant to Health Maintenance Insurance [address] [place] [address] MEDICAID [place] PART A AND B
--- OUTSIDE RECORDS SUMMARY | 2024-06-27 16:27 | XMS_ITS | Encounter Summary ---
Author Organization [facility] Address [address] [place] [address] Care Team Providers Care Customer Marketing Manager Name Role Phone Unavailable Primary Care Provider Unavailabl e Reason for Referral * Outpatient Services (Routine) - Closed Specialty Diagnoses / Procedures Referred By Contac t Referred To Contact Diagnoses Other (abnormal) findings on radiological examination of breast Procedures MAMMO DIGITIZED STUDY Wilda Sloan MD [address] [place] [address] Phone: tel: fax: Referral ID Status Reason Start Date Expiration Date Visits Re quested Visits Authorized [id number] Closed 05/18/2011 05/17/2012 1 1 T TELEGRAPHER Encounter Details Date Type Department Care Team (Latest Contact Info) Description 05/18/2011 Ancillary Orders [facility] [address] [id number] Wilda Sloan MD [address] [place] [address] Other (abnormal) findings on radiological examination of breast Social History Tobacco Use Types Packs/Day Years Used Date Smoking Tobacco: Never Assessed Comments Unknown Sex and Gender Information Value Date Recorded Sex Assigned at Not on file Legal Sex Female 7:07 AM AGENT TELEGRAPHER Gender Identity Not on file Sexual Orientation Not on file documented as of this encounter Plan of Treatment Not on file documented as of this encounter Results * MAMMO DIGITIZED STUDY (05/05/2011 2:48 PM AGENT TELEGRAPHER) Narrative Tabitha Judd, RT - 05/18/2011 2:48 PM AGENT TELEGRAPHER Order information only. ??Exam was auto-finalized. ?? Procedure Note Tabitha Judd, RT - 05/18/2011 Order information only. Exam was auto-finalized. us Wilda Sloan MD DIAGNOSTIC IMAGING ORDERAB LES Final Result documented in this encounter Visit Diagnoses Diagnosis Other (abnormal) findings on radiological examination of breast Other (abnormal) findings on radiological examination of breast documented in this encounter
--- OUTSIDE RECORDS SUMMARY | 2024-06-27 16:27 | XMS_ITS | Encounter Summary ---
Author Organization [facility] Address [address] [place] [address] Care Team Providers Care Head Setter Name Role Phone Wilda Sloan MD Primary Care Provider [phone] Reason for Visit * Reason Comments Blood In Stool Abdominal Pain Encounter Details Date Type Department Care Team (Late st Contact Info) Description 06/27/2024 7:19 AM CDT - 06/27/2024 3:21 PM CDT Emergency [facility] Emergency Medicine [address] [phone] Ketty Elkins MD [address] [phone] Lower GI bleed (Primary Dx); Acute blood loss anemia Discharge Disposition: Acute Care Hospital Social History Tobacco Use Types Packs/Day Years Used Date Smoking Tobacco: Never Smokeless Tobacco: Never Alcohol Use Standard Drinks/Week Comments Not Currently 0 (1 standard drink = 0.6 oz pur e alcohol) Feeling Safe Answer Date Recorded Are you in a relationship wi th someone who hurts you emotionally and/or physically? 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 Gender Identity Not on file Sexual Orientation Not on file documented as of this encounter Last Filed Vital Signs Vital Sign Reading Time Taken Comments Blood Pressure 122/68 06/27/2024 3:15 PM CDT Pulse 87 06/27/2024 3:15 PM CDT Temperature 36.4 ??C (97.6 ??F) 06/27/2024 3:15 PM CD T Respiratory Rate 24 06/27/2024 3:15 PM CDT Oxygen Saturation 99% 06/27/2024 3:15 PM CDT Inhaled Oxygen Concentration - - Weight 107.4 kg (236 lb 11.2 oz) 06/27/2024 7:25 AM CDT Height 157.5 cm (5' 2 ) 06/27/2024 7:25 AM CDT Body Mass Index 43.29 06/27/2024 7:25 AM CDT documented in this encounter Medications at Time of Discharge aspirin (ECOTRIN EC) 81 mg Tablet, Delayed Release (E.C.) Take 81 mg by mouth daily. fluticasone propion-salmete roL (ADVAIR DISKUS,WIXELA INHUB) 500-50 mcg/dose disk inhaler Take 1 Puff by inhalation 2 times daily. methocarbamoL (ROBAXIN) 500 mg tablet Take 1,000 mg by mouth 2 times daily as needed for Spasm. baclofen (LIORESAL) 10 mg tablet Take 1 Tablet by mouth late in the day. LACTOBAC NO.21-BIFIDOBAC NO.9 ORAL Take 1 Tablet by mouth daily. clobetasoL (TEMOVATE) 0.05 % Cream Apply to affected area see administration instructions. clotrimazole (GYNE-LOTRIMIN) 1 % vaginal cream Insert vaginally 2 times daily. fluconazole (DIFLUCAN) 200 mg tablet Take 200 mg by mouth daily. mupirocin calcium (BACTROBAN) 2 % Cream Apply to affected area 3 times daily. nitrofurantoin (MACROBID) 100 mg capsule Take 100 mg by mouth 2 times daily. omega 9-vlo-wox-fish oil 1,000 mg (250 mg-750 mg)/5 mL Liquid Take 1 Tablet by mouth 2 times daily. oxyBUTYnin (DITROPAN) 5 mg tablet Take 5 mg by mouth late in the day. triamcinolone acetonide (KENALOG) 0.1 % Cream Apply to affected area 3 times daily. valACYclovir (VALTREX) 500 mg tablet Take 500 mg by mouth 2 times daily as needed. albuterol sulfate HFA 90 mcg/actuation aerosol inhaler Take 2 Puffs by inhalation every 6 hours as needed for Shortness of Breath. galcanezumab-gn lm (Emgality Pen) 120 mg/mL Pen Injector Inject by subcutaneous injection every 30 days. levothyroxine 88 mcg tablet Take 88 mcg by mouth daily in the morning. memantine (NAMENDA) 5 mg Tablet Take 10 mg by mouth 2 times daily. montelukast (SINGULAIR) 10 mg tablet Take 10 mg by mouth daily. pantoprazole (PROTONIX) 40 mg Tablet, Delayed Release (E.C.) Take 40 mg by mouth 2 times daily. documented as of this encounter ED Notes * Elisa Del Toro RN - 06/27/2024 3:20 PM CDT [facility] crew here. Report given. Patient remains alert and oriented. Sinus rhythm on monitor. Saline lock patent and intact. Respirations even and unlabored on room air. Patient belongings with patient. Mom states she is going to go home. Called [facility] to 2nd floor and notified them that patient is leaving and that the mother is not going to be coming up with the patient and to make sure to utilize the interpretive services sign language in which patient does understandsign language. * Elisa Del Toro RN - 06/27/2024 3:[address] Elkins speaking to Poison Control calling back. * Elisa Del Toro RN - 06/27/2024 2:54 PM CDT [facility] called and advised of needing an ambulance transfer set up. * Elisa Del Toro RN - 06/27/2024 2:16 PM CDT Attempted to call report. Nursing busy at this time and will call back. * Elisa Del Toro RN - 06/27/2024 2:14 PM CDT Track Worker [facility] calling back with room assignment [id number]. * Elisa Del Toro RN - 06/27/2024 1:53 PM CDT Ice water provided to patient per DR Elkins's ok * Elisa Del Toro RN - 06/27/2024 1:39 PM CDT Called [facility] Track Worker and advises that they are waiting on discharges no bed available at this time. Updated patient and family on wait time. * Elisa Del Toro RN - 06/27/2024 12:15 PM CDT Updated on plan of care and wait time with patient and mother. * Elisa Del Toro RN - 06/27/2024 12:05 PM CDT Back to bed. * Elisa Del Toro RN - 06/27/2024 12:[address] Elkins calling and speaking with [facility] physician * Elisa Del Toro RN - 06/27/2024 12:00 PM CDT Up to bedside commode * Elisa Del Toro RN - 06/27/2024 11:02 AM CDT Patient transported via wheelchair. Patient transported to CT with Tech. * Elisa Del Toro RN - 06/27/2024 10:50 AM CDT Patient back to bed. Patient was up to bedside commode and small amount of liquid with soft pieces with unformed edges type 6 that is brown in color of stool noted. Mouth swabs provided. * Elisa Del Toro RN - 06/27/2024 10:09 AM CDT [facility] physician calling back and speaking to DR Elkins * Elisa Del Toro RN - 06/27/2024 10:00 AM CDT Back to room. CT scanner having technical problems and was only able to obtain CT without portion. Will notify when CT is working properly. * Elisa Del Toro RN - 06/27/2024 9:36 AM CDT Patient transported via wheelchair. Patient transported to [place] with Tech. * Elisa Del Toro RN - 06/27/2024 9:[address] Elkins calling and speaking to [facility] Supervisor. * Elisa Del Toro RN - 06/27/2024 9:09 AM CDT Radiology notified of orders. Lemon glycerine mouth swabs provided to patient. * Elisa Del Toro RN - 06/27/2024 8:43 AM CDT Provider at bedside. * Elisa Del Toro RN - 06/27/2024 8:33 AM CDT Back to bed. No stool noted only voiding. * Elisa Del Toro RN - 06/27/2024 8:31 AM CDT Up to bedside commode * Elisa Del Toro RN - 06/27/2024 8:11 AM CDT Patient is a difficult IV start for AC veins at least. Several attempts tried with ultrasound unsuccessful by nursing staff at this time. * Elisa Del Toro RN - 06/27/2024 7:25 AM CDT Patient arrives by private vehicle. Mother at bedside and is the school bus driver/mechanic. Patient brought in from vehicle by wheelchair. Patient is deaf but is able to communicate where pain is at. Skin pale, warm, dry. Mom states that patient has been having bright red blood in stool with some clots initially starting on 06/14/23 and diarrhea but now is starting to become darker but remains to have diarrhea . States was seen by DR Jolly Sloan,PCP, on Tuesday 2 days ago and did blood work. States she took a stool sample in yesterday to the PCP. States she was advised to go to the ER and did not get a referralto GI per patient's mother. Mom states that she initially had vomiting but none now. Denies any feve r. When pressing on abdomen patient indicates pain everywhere but worse on the right upper and lower abdomen. Mom states that she is not sure what medications that she took today but does know that her morning medications contains aspirin. Stool occult blood on 06/25/24 positive, hemoglobin 8.4, and hematocrit 27.9. Last food intake yesterday 1730 and last fluid intake today at 0600. * Ketty Elkins MD - 06/27/2024 7:18 AM CDT HISTORY OF PRESENT ILLNESS Poppy Villeda, a 59 y.o. 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 Mother is also a historian. The patient presents with a chief complaint of blood in her stool since June 13, accompanied by right-sided abdominal tenderness and low hemoglobin levels of 8.4 with decreased iron levels of 5. She was referred to the Emergency Department by Dr. Sloan. The patient reports bright red blood with clots in her stool, which has recently become darker. Shedescribes the blood on tissue as a darker burgundy color. Associated symptoms include abdominal pain, which has been present for about a week and has significantly impacted her mobility, limiting herto walking only to the bathroom. The patient experienced vomiting from June 13 to , which was accompanied by diarrhea and poor oral intake. She also reports shortness of breath and chest pain. The patient's medical history is significant for colitis, diagnosed via colonoscopy several years ago. Her current medications include aspirin, meloxicam, memantine, topamax, levothyroxine, and a musclerelaxer taken twice daily. She avoids ibuprofen due to gastrointestinal irritation. A stool sample was taken yesterday, with results pending. Occult blood in stool test on 06/25/24 was positive. History provided by: The mother and the patient Arrived by: Private vehicle Arrived from: Home REVIEW OF SYSTEMS Review of Systems Unable to perform ROS: Patient nonverbal PAST MEDICAL HISTORY REVIEWED MEDICAL: Patient has a past medical history of Deaf, GERD (gastroesophageal reflux disease), Headache, and Hypothyroidism. SURGICAL: Patient has a past surgical history that includes hysterectomy. FAMILY: Patient's family history is not on file. SOCIAL: reports that she has never smoked. She has never used smokeless tobacco. She reports that she does not currently use alcohol. She reports that she does not use drugs. No history on file. Social History Other Topics Concern Not on file ALLERGIES Lansoprazole, Naproxen, and Sulfa (sulfonamide antibiotics) HOME MEDICATIONS Current Discharge Medication List CONTINUE these medications which have NOT CHANGED Details aspirin (ECOTRIN EC) 81 mg Tablet, Delayed Release (E.C.) Take 81 mg by mouth daily. fluticasone propion-salmeteroL (ADVAIR DISKUS,WIXELA INHUB) 500-50 mcg/dose disk inhaler Take 1 Puff by inhalation 2 times daily. methocarbamoL (ROBAXIN) 500 mg tablet Take 1,000 mg by mouth 2 times daily as needed for Spasm. baclofen (LIORESAL) 10 mg tablet Take 1 Tablet by mouth late in the day. LACTOBAC NO.21-BIFIDOBAC NO.9 ORAL Take 1 Tablet by mouth daily. clobetasoL (TEMOVATE) 0.05 % Cream Apply to affected area see administration instructions. clotrimazole (GYNE-LOTRIMIN) 1 % vaginal cream Insert vaginally 2 times daily. fluconazole (DIFLUCAN) 200 mg tablet Take 200 mg by mouth daily. mupirocin calcium (BACTROBAN) 2 % Cream Apply to affected area 3 times daily. nitrofurantoin (MACROBID) 100 mg capsule Take 100 mg by mouth 2 times daily. omega 1-asr-oyv-fish oil 1,000 mg (250 mg-750 mg)/5 mL Liquid Take 1 Tablet by mouth 2 times daily. oxyBUTYnin (DITROPAN) 5 mg tablet Take 5 mg by mouth late in the day. triamcinolone acetonide (KENALOG) 0.1 % Cream Apply to affected area 3 times daily. valACYclovir (VALTREX) 500 mg tablet Take 500 mg by mouth 2 times daily as needed. albuterol sulfate HFA 90 mcg/actuation aerosol inhaler Take 2 Puffs by inhalation every 6 hours as needed for Shortness of Breath. galcanezumab-gnlm (Emgality Pen) 120 mg/mL Pen Injector Inject by subcutaneous injection every 30 days. levothyroxine 88 mcg tablet Take 88 mcg by mouth daily in the morning. memantine (NAMENDA) 5 mg Tablet Take 10 mg by mouth 2 times daily. montelukast (SINGULAIR) 10 mg tablet Take 10 mg by mouth daily. pantoprazole (PROTONIX) 40 mg Tablet, Delayed Release (E.C.) Take 40 mg by mouth 2 times daily. STOP taking these medications budesonide-formoteroL (SYMBICORT) 80-4.5 mcg/actuation HFA Aerosol Inhaler Comments: Reason for Stopping: flaxseed Oil 1,000 mg Capsule Comments: Reason for Stopping: meloxicam (MOBIC) 15 mg tablet Comments: Reason for Stopping: topiramate (TOPAMAX) 50 mg tablet Comments: Reason for Stopping: Objective PHYSICAL EXAM INITIAL VS BP: 126/80 (06/27/24 0725), Heart Rate: (!) 108 bpm (06/27/24724), Resp: 20 (06/27/24724), Pulse: 98 (06/27/24 0745), Temp: 97.2 ??F (36.2 ??C) (06/27/24724), Temp src: Temporal (06/27/24724), SpO2: 100 % (06/27/24724), Height: 5' 2 (157.5 cm) (06/27/24724), Weight: 107.4 kg (236 lb 11.2 oz) (06/27/24724), BMI (Calculated): (!) 43.3 (06/27/24724) No LMP recorded. Patient has had a hysterectomy. Physical Exam Vitals and nursing note reviewed. Exam conducted with a environmental scientist present (TANNER Red). Constitutional: General: She is not in acute distress. Appearance: She is obese. She is not ill-appearing. HENT: Head: Normocephalic. Mouth/Throat: Mouth: Mucous membranes are moist. Eyes: Extraocular Movements: Extraocular movements intact. Pupils: Pupils are equal, round, and reactive to light. Comments: Conjunctival pallor Cardiovascular: Rate and Rhythm: Regular rhythm. Tachycardia present. Pulses: Normal pulses. Pulmonary: Effort: Pulmonary effort is normal. No respiratory distress. Breath sounds: Normal breath sounds. No wheezing. Abdominal: General: There is no distension. Palpations: Abdomen is soft. Tenderness: There is abdominal tenderness. There is guarding (epigastric, RUQ and RLQ pain on palpation.). There is no right CVA tenderness, left CVA tenderness or rebound. Negative signs include Quiles's sign and Rovsing's sign. Genitourinary: Comments: Anal area without any external hemorrhoids or anal fissure. Dry blood present around the anus. Skin: General: Skin is warm and dry. Capillary Refill: Capillary refill takes 2 to 3 seconds. Neurological: General: No focal deficit present. Mental Status: She is alert. Mental status is at baseline. Cranial Nerves: No cranial nerve deficit. Sensory: No sensory deficit. Psychiatric: Mood and Affect: Mood normal. Behavior: Behavior normal. DIAGNOSTICS LAB: CBC WITH DIFFERENTIAL - Abnormal Result Value WBC 9.2 NRBCS 1 RBC 3.16 (*) HEMOGLOBIN 8.0 (*) HEMATOCRIT 25.5 (*) MCV 80.7 MCH 25.3 (*) MCHC 31.4 (*) RDW 15.9 (*) RDW-STDEV 46.5 PLATELETS 542 (*) MPV 9.1 (*) NEUTROPHILS 66 LYMPHOCYTES 21 MONOCYTES 8 EOSINOPHILS 3 BASOPHILS 1 IMMATURE GRANULOCYTES 1 NEUTROPHIL ABSOLUTE 6.03 LYMPHOCYTE ABSOLUTE 1.92 MONOCYTE ABSOLUTE 0.77 (*) EOSINOPHIL ABSOLUTE 0.24 BASOPHILS ABSOLUTE 0.08 IMMATURE GRANULOCYTES ABSOLUTE 0.12 SEDIMENTATION RATE - Abnormal ESR (SEDIMENTATION RATE) 74 (*) COMPREHENSIVE METABOLIC PANEL - Abnormal SODIUM 138 POTASSIUM 3.5 CHLORIDE 101 CO2 24 CALCIUM 8.9 BUN 12 CREATININE 0.85 GLUCOSE 133 (*) TOTAL PROTEIN 6.4 (*) ALBUMIN 3.1 (*) BILIRUBIN TOTAL 0.4 ALKALINE PHOSPHATASE 102 AST 21 ALT 14 GFR >60 ANION GAP 13 BRAIN NATRIURETIC PEPTIDE, BNP OR PROBNP - Abnormal PROBNP, N TERMINAL 229 (*) C-REACTIVE PROTEIN - Abnormal CRP 119.0 (*) LACTIC ACID - Normal LACTIC ACID 1.4 LIPASE - Normal LIPASE 24 PROTIME-INR - Normal PROTIME 13.6 INR 1.0 PTT - Normal PTT 26.8 MANUAL DIFFERENTIAL PLATELET EST. Consistent w Count ANISOCYTOSIS 1+ MICROCYTES 2+ HYPOCHROMIA 1+ OVALOCYTES 2+ TYPE AND SCREEN ABO/RH TYPE A POS ANTIBODY SCREEN Negative VERIFICATION BLOOD GROUP ABO/RH TYPE A POS RADIOLOGY: CTA ABD PELVIS W AND/OR WO CONTRAST Radiologist Impression IMPRESSION: 1. No abdominal aortic aneurysm or dissection. 2. No evidence of any active contrast extravasation into the bowel. 3. No appreciable stenosis of any of the major arterial branches off of the abdominal aorta in the abdomen and pelvis. EKG: PROCEDURES Procedures MEDICAL DECISION MAKING AND PLAN OF CARE Medical Decision Making Patient is here due to concern about anemia developing in light of having blood in stool that was tested by patient's PCP. Blood tests were reviewed from PCP office. Normal renal function and LFTs. Will obtain Blood including Type and screen, and get CTA Abdomen/Pelvis for further evaluation of the bleeding in the GIT. Blood work revealed no leukocytosis or left shift. There multiple abnormal red blood cells including hypochromic red blood cells and hemoglobin is 8.0 with normal MCV. Platelets are elevated at 542. ESR/CRP elevated 74/119. Electrolytes, renal function and LFTs are within normal limits. Lipase and lactic acid normal as well. PT/INR also within normal. On examination there was no presence of external hemorrhoids or anal fissure, however patient had some tenderness around the anal area. There was no active bleeding, however there was dried blood around the anus. Reached out to [facility] in [place] to inquire if they have gastroenterology and waiting to hear back. Discussed the case with Dr. Mcneal who is hospitalist at [facility] and currently pending to hear from them regarding if their surgeon would be able to take the case once the CTA is available. I received the results of the CTA showing no acute/rapid bleed in the GI tract and no other acute findings were present. Dr. Mcneal has accepted the patient and surgeon was also informed of the possible case. At this time awaiting bed assignment. Patient's mother and patient are in agreement with the plan of transfer for further evaluation. Amount and/or Complexity of Data Reviewed Labs: ordered. Radiology: ordered. Risk Prescription drug management. Clinical Scoring & Consults Medications Administered During the ED Stay from 06/27/2024 0719 to 06/27/2024 1212 Date/Time Order Dose Route Action 06/27/2024 1114 CDT iopamidoL (ISOVUE-300) 61% injection (single-use vial) 190 mL 190 mL IV Contrast Given 06/27/2024 1000 CDT sodium chloride bacteriostatic 0.9 % injection 10 mL 10 mL IV Given 06/27/2024 1122 CDT sodium chloride 0.9 % bolus solution 1,000 mL 1,000 mL IV New Bag Current Discharge Medication List CONTINUE these medications which have NOT CHANGED Details aspirin (ECOTRIN EC) 81 mg Tablet, Delayed Release (E.C.) Take 81 mg by mouth daily. fluticasone propion-salmeteroL (ADVAIR DISKUS,WIXELA INHUB) 500-50 mcg/dose disk inhaler Take 1 Puff by inhalation 2 times daily. methocarbamoL (ROBAXIN) 500 mg tablet Take 1,000 mg by mouth 2 times daily as needed for Spasm. baclofen (LIORESAL) 10 mg tablet Take 1 Tablet by mouth late in the day. LACTOBAC NO.21-BIFIDOBAC NO.9 ORAL Take 1 Tablet by mouth daily. clobetasoL (TEMOVATE) 0.05 % Cream Apply to affected area see administration instructions. clotrimazole (GYNE-LOTRIMIN) 1 % vaginal cream Insert vaginally 2 times daily. fluconazole (DIFLUCAN) 200 mg tablet Take 200 mg by mouth daily. mupirocin calcium (BACTROBAN) 2 % Cream Apply to affected area 3 times daily. nitrofurantoin (MACROBID) 100 mg capsule Take 100 mg by mouth 2 times daily. omega 6-slr-lmk-fish oil 1,000 mg (250 mg-750 mg)/5 mL Liquid Take 1 Tablet by mouth 2 times daily. oxyBUTYnin (DITROPAN) 5 mg tablet Take 5 mg by mouth late in the day. triamcinolone acetonide (KENALOG) 0.1 % Cream Apply to affected area 3 times daily. valACYclovir (VALTREX) 500 mg tablet Take 500 mg by mouth 2 times daily as needed. albuterol sulfate HFA 90 mcg/actuation aerosol inhaler Take 2 Puffs by inhalation every 6 hours as needed for Shortness of Breath. galcanezumab-gnlm (Emgality Pen) 120 mg/mL Pen Injector Inject by subcutaneous injection every 30 days. levothyroxine 88 mcg tablet Take 88 mcg by mouth daily in the morning. memantine (NAMENDA) 5 mg Tablet Take 10 mg by mouth 2 times daily. montelukast (SINGULAIR) 10 mg tablet Take 10 mg by mouth daily. pantoprazole (PROTONIX) 40 mg Tablet, Delayed Release (E.C.) Take 40 mg by mouth 2 times daily. STOP taking these medications budesonide-formoteroL (SYMBICORT) 80-4.5 mcg/actuation HFA Aerosol Inhaler Comments: Reason for Stopping: flaxseed Oil 1,000 mg Capsule Comments: Reason for Stopping: meloxicam (MOBIC) 15 mg tablet Comments: Reason for Stopping: topiramate (TOPAMAX) 50 mg tablet Comments: Reason for Stopping: LAST VS BP: 113/72 (06/27/24 1200), Heart Rate: 91 bpm (06/27/24 1200), Resp: 19 (06/27/24 1200), Pulse: 89(06/27/24 1200), Temp: 97.2 ??F (36.2 ??C) (06/27/24724), Temp src: Temporal (04/09/25 0725), SpO2: 100 % (06/27/24 1200) CLINICAL IMPRESSION Final diagnoses: [K92.2] Lower GI bleed (Primary) [D62] Acute blood loss anemia DISPOSITION, EDUCATION AND MEDICATION RECONCILIATION Medications reconciled. See after visit summary for patient education on discharged patients. ED Disposition ED Disposition Transfer Condition Stable User Ketty Elkins MD Date/Time TueJun 27, 2024 12:10 PM Comment -- ATTESTATION STATEMENTS Diagnoses Diagnosis Comment Added By Time Added Lower GI bleed [K92.2] Ketty Elkins MD 06/27/2024 12:10 PM Acute blood loss anemia [D62] Ketty Elkins MD 06/27/2024 12:10 PM documented in this encounter Plan of Treatment Not on file documented as of this encounter Procedures Procedure Name Priority Date/Time Associated Diagnosis Comments CTA ABD PELVIS W AND/OR WO CONTRAST Stat 06/27/2024 11:15 AM CDT VERIFICATION BLOOD GROUP Stat 06/27/2024 8:16 AM CDT DIFFERENTIAL, MANUAL Stat 06/27/2024 8:16 AM CDT LACTIC ACID Stat 06/27/2024 8:16 AM CDT CBC WITH DIFFERENTIAL Stat 06/27/2024 8:16 AM CDT PTT Stat 06/27/2024 8:16 AM CDT SEDIMENTATION RATE Stat 06/27/2024 8: 16 AM CDT PROTIME-INR Stat 06/27/2024 8:16 AM CDT TYPE AND SCREEN Stat 06/27/2024 8:16 AM CDT C-REACTIVE PROTEIN Stat 06/27/2024 8: 16 AM CDT BRAIN NATRIURETIC PEPTIDE, BNP OR PROBNP Stat 06/27/2024 8:16 AM CDT LIPASE Stat 06/27/2024 8:16 AM CDT COMPREHENSIVE METABOLIC PANEL Stat 06/27/2024 8:16 AM CDT documented in this encounter Results * CTA ABD PELVIS W AND/OR WO CONTRAST (06/27/2024 11:15 AM CDT) Anatomical Region Laterality Modality Abdomen Computed Tomogra phy 06/27/2024 11:1 6 AM CDT Impressions 06/27/2024 11:46 AM CDT IMPRESSION: 1. No abdominal aortic aneurysm or dissection. 2. No evidence of any active contrast extravasation into the bowel. 3. No appreciable stenosis of any of the major arterial branches off of the abdominal aorta in the abdomen and pelvis. Narrative 06/27/2024 11:46 AM CDT Exam: CTA ABD PELVIS W AND/OR WO CONTRAST Date/Time of Exam: 06/27/2024 11:15 AM Reason For Exam: Lower GI bleed. A CTA study was performed on the abdominal aorta and its major arterial branches to the abdomen and pelvis. Axial, sagittal, coronal and 3-D reformatted images are included. 100 mL of Isovue-300 was given intravenously. There is no evidence of any abdominal aortic aneurysm or dissection. Widely patent blood flow is seen throughout the length of the abdominal aorta. Widely patent flow is present within the celiac artery, superior and inferior mesenteric arteries and in the renal arteries bilaterally. There is widely patent flow with no appreciable stenosis seen throughout the common and external iliac arteries, common femoral arteries and in the visualized portions of the superficial and deep femoral arteries bilaterally. There is no evidence of any aneurysm, pseudoaneurysm or dissection involving any of these major arterial branches off the abdomen aorta. There is no evidence of any abnormal contrast accumulations within the bowel that would be suspicious for any active hemorrhage. The appendix is visualized and is unremarkable in appearance. There is no evidence of any dilatation of the ureters or renal collecting systems. The liver, spleen, pancreas, kidneys and adrenals are unremarkable. ??There is no evidence of abnormal soft tissue masses, abnormal fluid collections or adenopathy in the abdomen or pelvis. ??Bowel loops are nondilated. ?? There is no evidence of any free intraperitoneal air. Procedure Note Noel Her MD - 06/27/2024 Exam: CTA ABD PELVIS W AND/OR WO CONTRAST Date/Time of Exam: 06/27/2024 11:15 AM Reason For Exam: Lower GI bleed. A CTA study was performed on the abdominal aorta and its major arterial branches to the abdomen and pelvis. Axial, sagittal, coronal and 3-D reformatted images are included. 100 mL of Isovue-300 was given intravenously. There is no evidence of any abdominal aortic aneurysm or dissection. Widely patent blood flow is seen throughout the length of the abdominal aorta. Widely patent flow is present within the celiac artery, superior and inferior mesenteric arteries and in the renal arteries bilaterally. There is widely patent flow with no appreciable stenosis seen throughout the common and external iliac arteries, common femoral arteries and in the visualized portions of the superficial and deep femoral arteries bilaterally. There is no evidence of any aneurysm, pseudoaneurysm or dissection involving any of these major arterial branches off the abdomen aorta. There is no evidence of any abnormal contrast accumulations within the bowel that would be suspicious for any active hemorrhage. The appendix is visualized and is unremarkable in appearance. There is no evidence of any dilatation of the ureters or renal collecting systems. The liver, spleen, pancreas, kidneys and adrenals are unremarkable. There is no evidence of abnormal soft tissue masses, abnormal fluid collections or adenopathy in the abdomen or pelvis. Bowel loops are nondilated. There is no evidence of any free intraperitoneal air. IMPRESSION: 1. No abdominal aortic aneurysm or dissection. 2. No evidence of any active contrast extravasation into the bowel. 3. No appreciable stenosis of any of the major arterial branches off of the abdominal aorta in the abdomen and pelvis. Ketty Elkins MD CT ORDERABLES Final Result * VERIFICATION BLOOD GROUP (06/27/2024 8:16 AM CDT) ABO/RH TYPE A POS 06/27/2024 9:19 AM CDT [facility] Blood BLOOD SPECIMEN / Unknown Collection / Unknown 06/27/2024 8:16 AM CDT 06/27/2024 9:08 AM CDT us Ketty Elkins MD BLOOD BANK ORDERABLES Final Res ult Performing Organization Address City/[facility]/ZIP Co de Phone Number [facility] CLIA # [id number] [address] [place] [address] 42543 * MANUAL DIFFERENTIAL (06/27/2024 8:16 AM CDT) PLATELET EST. Consistent w Count 06/27/2024 9:08 AM CDT [facility] ANISOCYTOSIS 1+ /hpf 06/27/2024 9:08 AM CDT [facility] MICROCYTES 2+ /hpf 06/27/2024 9:08 AM CDT [facility] HYPOCHROMIA 1+ /hpf 06/27/2024 9:08 AM CDT [facility] OVALOCYTES 2+ /hpf 06/27/2024 9:08 AM CDT [facility] Blood BLOOD SPECIMEN / Unknown Collection / Unknown 06/27/2024 8:16 AM CDT 06/27/2024 8:30 AM CDT us Ketty Elkins MD HEMATOLOGY ORDERABLES COM Final Result Performing Organization Address [facility] Co de Phone Number [facility] CLIA # [id number] [address] [place] [address] 37839 * PTT (06/27/2024 8:16 AM CDT) PTT 26.8 25.8 - 34.0 seconds 06/27/2024 8:47 AM CDT [facility] Blood BLOOD SPECIMEN / Unknown Collection / Unknown 06/27/2024 8:16 AM CDT 06/27/2024 8:30 AM CDT us Ketty Elkins MD HEMATOLOGY ORDERABLES Final Res ult [facility] CLIA # [id number] [address] [place] [address] 78994 * PROTIME-INR (06/27/2024 8:16 AM CDT) PROTIME 13.6 11.9 - 14.6 Seconds 06/27/2024 8:47 AM CDT [facility] INR 1.0 0.9 - 1.1 06/27/2024 8:47 AM CDT [facility] Blood BLOOD SPECIMEN / Unknown Collection / Unknown 06/27/2024 8:16 AM CDT 06/27/2024 8:30 AM CDT us Ketty Elkins MD HEMATOLOGY ORDERABLES Final Res ult Performing Organization Address [facility]/ZIP Co de Phone Number [facility] CLIA # [id number] [address] [place] [address] 46366 * LIPASE (06/27/2024 8:16 AM CDT) LIPASE 24 13 - 60 U/L 06/27/2024 9:08 AM CDT [facility] Blood BLOOD SPECIMEN / Unknown Collection / Unknown 06/27/2024 8:16 AM CDT 06/27/2024 8:30 AM CDT us Ketty Elkins MD CHEMISTRY ORDERABLES Final Resu lt [facility] CLIA # [id number] [address] [place] [address] 60050 * (ABNORMAL) C-REACTIVE PROTEIN (06/27/2024 8:16 AM CDT) CRP 119.0(H) <5.0 mg/L 06/27/2024 9:08 AM CDT [facility] Blood BLOOD SPECIMEN / Unknown Collection / Unknown 06/27/2024 8:16 AM CDT 06/27/2024 8:30 AM CDT us Ketty Elkins MD CHEMISTRY ORDERABLES Final Resu lt Performing Organization Address [facility]/ZIP Co de Phone Number [facility] CLIA # [id number] [address] [place] [address] 78398 * LACTIC ACID (06/27/2024 8:16 AM CDT) LACTIC ACID 1.4 <=2.0 mmol/L 06/27/2024 8:53 AM CDT [facility] Blood BLOOD SPECIMEN / Unknown Collection / Unknown 06/27/2024 8:16 AM CDT 06/27/2024 8:30 AM CDT us Ketty Elkins MD CHEMISTRY ORDERABLES Final Resu lt Performing Organization Address [facility] de Phone Number [id number] [address] [place] [address] 08596 * (ABNORMAL) BRAIN NATRIURETIC PEPTIDE, BNP OR PROBNP (06/27/2024 8:16 AM CDT) PROBNP, N TERMINAL 229(H) 0 - 125 pg/mL 06/27/2024 9:08 AM CDT [facility] Comment: INTERPRETIVE COMMENT based on diagnosis: Diagnostic NT pro-BNP cutoffs for Heart Failure in the absence of renal failure is suggested for the following ranges ?? <75 ??years: <125 pg/mL >=75 ??years: <450 pg/mL Exclusionary rule out cut-point for Acute Decompensated Heart Failure(ADHF) All ages: <300 pg/mL Diagnostic NT pro-BNP cutoffs for Acute Decompensated Heart Failure(ADHF) in the absence of renal failure is suggested for the following ages ?? <50 ??years: > 450 ??pg/mL 50-75 years: > 900 ??pg/mL ?? >75 ??years: >1800 pg/mL Blood BLOOD SPECIMEN / Unknown Collection / Unknown 06/27/2024 8:16 AM CDT 06/27/2024 8:30 AM CDT us Ketty Elkins MD CHEMISTRY ORDERABLES Final Resu lt [facility] CLIA # [id number] [address] [place] [address] 37771 * (ABNORMAL) COMPREHENSIVE METABOLIC PANEL (06/27/2024 8:16 AM CDT) SODIUM 138 136 - 145 mmol/L 06/27/2024 9:08 AM [facility] POTASSIUM 3.5 3.5 - 5.1 mmol/L 06/27/2024 9:08 AM [facility] CHLORIDE 101 98 - 107 mmol/L 06/27/2024 9:08 AM [facility] CO2 24 22 - 29 mmol/L 06/27/2024 9:08 AM [facility] CALCIUM 8.9 8.6 - 10.0 mg/dL 06/27/2024 9:08 AM [facility] BUN 12 6 - 20 mg/dL 06/27/2024 9:08 AM [facility] CREATININE 0.85 0.51 - 0.95 mg/dL 06/27/2024 9:08 AM [facility] GLUCOSE 133(H) 74 - 99 mg/dL 06/27/2024 9:08 AM [facility] TOTAL PROTEIN 6.4(L) 6.6 - 8.7 g/dL 06/27/2024 9:08 AM [facility] ALBUMIN 3.1(L) 4.0 - 4.9 g/dL 06/27/2024 9:08 AM [facility] BILIRUBIN TOTAL 0.4 <=1.2 mg/dL 06/27/2024 9:08 AM [facility] ALKALINE PHOSPHATASE 102 35 - 104 U/L 06/27/2024 9:08 AM [facility] AST 21 0 - 35 U/L 06/27/2024 9:08 AM [facility] ALT 14 0 - 35 U/L 06/27/2024 9:08 AM CDT [facility] GFR >60 >=60 mL/min/1.7 3 sq meter 06/27/2024 9:08 AM T [facility] Comment:eGFR calculated with 2020 CKD-EPI equation. Vegetarian diet, extremely high or low muscle mass, and may affect results. Cystatin C with Glomerular Filtration Rate is a suitable alternative for these patients. ANION GAP 13 5 - 20 mmol/L 06/27/2024 9:08 AM CDT [facility] Blood BLOOD SPECIMEN / Unknown Collection / Unknown 06/27/2024 8:16 AM CDT 06/27/2024 8:30 AM CDT Ketty Elkins MD CHEMISTRY ORDERABLES Final Resu lt [facility] CLIA # [id number] [address] [place] [address] 76117 * TYPE AND SCREEN (06/27/2024 8:16 AM CDT) ABO/RH TYPE A POS 06/27/2024 9:19 AM CDT [facility] ANTIBODY SCREEN Negative 06/27/2024 9:19 AM CDT [facility] Blood BLOOD SPECIMEN / Unknown Collection / Unknown 06/27/2024 8:16 AM CDT 06/27/2024 8:30 AM CDT us Ketty Elkins MD BLOOD BANK ORDERABLES Final Res ult [facility] CLIA # [id number] [address] [place] [address] 14022 * (ABNORMAL) SEDIMENTATION RATE (06/27/2024 8:16 AM CDT) ESR (SEDIMENTATION RATE) 74(H) 0 - 30 mm/Hr 06/27/2024 8:43 AM CDT [facility] Blood BLOOD SPECIMEN / Unknown Collection / Unknown 06/27/2024 8:16 AM CDT 06/27/2024 8:30 AM CDT Narrative [facility] - 06/27/2024 8:43 AM CDT Tube Lot: #[id number] Exp Date: 12/18/2025 SR 0125-1 EXP. 09/22/24 SR 0125-2 EXP. 09/22/24 us Ketty Elkins MD HEMATOLOGY ORDERABLES Final Res ult [facility] CLIA # [id number] [address] [place] [address] * (ABNORMAL) CBC WITH DIFFERENTIAL (06/27/2024 8:16 AM CDT) WBC 9.2 4.0 - 10.0 K/uL 06/27/2024 9:08 AM [facility] NRBCS 1 % 06/27/2024 9:08 AM [facility] RBC 3.16(L) 3.93 - 5.22 M/uL 06/27/2024 9:08 AM [facility] HEMOGLOBIN 8.0(L) 11.2 - 15.7 g/dL 06/27/2024 9:08 AM [facility] HEMATOCRIT 25.5(L) 34.1 - 44.9 % 06/27/2024 9:08 AM [facility] MCV 80.7 79.4 - 94.8 fL 06/27/2024 9:08 AM [facility] MCH 25.3(L) 25.6 - 32.2 pg 06/27/2024 9:08 AM [facility] MCHC 31.4(L) 32.2 - 35.5 g/dL 06/27/2024 9:08 AM [facility] RDW 15.9(H) 11.0 - 14.5 % 06/27/2024 9:08 AM [facility] RDW-STDEV 46.5 36.9 - 56.9 fL 06/27/2024 9:08 AM [facility] PLATELETS 542(H) 163 - 337 K/uL 06/27/2024 9:08 AM [facility] MPV 9.1(L) 10.0 - 14.8 fL 06/27/2024 9:08 AM [facility] NEUTROPHILS 66 34 - 71 % 06/27/2024 9:08 AM [facility] LYMPHOCYTES 21 19 - 52 % 06/27/2024 9:08 AM [facility] MONOCYTES 8 5 - 13 % 06/27/2024 9:08 AM [facility] EOSINOPHILS 3 1 - 6 % 06/27/2024 9:08 AM [facility] BASOPHILS 1 0 - 1 % 06/27/2024 9:08 AM [facility] IMMATURE GRANULOCYTES 1 % 06/27/2024 9:08 AM [facility] NEUTROPHIL ABSOLUTE 6.03 1.56 - 6.13 K/uL 06/27/2024 9:08 AM [facility] LYMPHOCYTE ABSOLUTE 1.92 1.20 - 3.40 K/uL 06/27/2024 9:08 AM [facility] MONOCYTE ABSOLUTE 0.77(H) 0.24 - 0.36 K/uL 06/27/2024 9:08 AM [facility] EOSINOPHIL ABSOLUTE 0.24 0.04 - 0.36 K/uL 06/27/2024 9:08 AM [facility] BASOPHILS ABSOLUTE 0.08 0.01 - 0.08 K/uL 06/27/2024 9:08 AM [facility] IMMATURE GRANULOCYTES ABSOLUTE 0.12 K/uL 06/27/2024 9:08 AM [facility] Blood BLOOD SPECIMEN / Unknown Collection / Unknown 06/27/2024 8:16 AM CDT 06/27/2024 8:30 AM CDT us Ketty Elkins MD HEMATOLOGY ORDERABLES Final Res ult [facility] [id number] [address] [place] [address] 46120 documented in this encounter Visit Diagnoses Diagnosis Lower GI bleed- Primary Hemorrhage of gastrointestinal tract, unspecified Lower GI bleed Hemorrhage of gastrointestinal tract, unspecified Acute blood loss anemia Acute posthemorrhagic anemia Acute blood loss anemia Acute posthemorrhagic anemia documented in this encounter Administered Medications Active Administered Medications - up to 3 most recent administrations Medication Order MAR Action Action Date Dose Rate Site sodium chloride bacteriostatic 0.9 % injection 10 mL 10 mL, IV, SEE ADMIN INSTRUCTIONS, Starting on Tue06/27/24 at 1114, Until Discontinued, Routine Given 06/27/2024 10:00 AM CDT 10 mL sodium chloride flush injection 5 mL 5 mL, IV, SEE ADMIN INSTRUCTIONS, Starting on Tue06/27/24 at 0741, Until Discontinued, Routine Inactive Administered Medications - up to 3 most recent administrations Medication Order MAR Action Action Date Dose Rate Site iopamidoL (ISOVUE-300) 61% injection (single-use vial) 190 mL 190 mL, IV, INTRA-PROCEDURE ONCE, 1 dose, Starting on Tue06/27/24 at 1114, Until Tue06/27/24 at 1114, Routine Contrast Given 06/27/2024 11:14 AM CDT 190 mL sodium chloride 0.9 % bolus solution 1,000 mL 1,000 mL, IV, ONE TIME ONLY, 1 dose, On Tue06/27/24 at 1130, at 2,000 mL/hr, Administer over 30 Minutes, Routine New Bag 06/27/2024 11:22 AM CDT 1,000 mL 2000 mL/hr documented in this encounter Active and Recently Administered Medications Times are shown in CDT. Scheduled Medication Order 06/25/2024 06/26/2024 06/27/2024 iopamidoL (ISOVUE-300) 61% injection (single-use vial) 190 mL (COMPLETED) 190 mL, IV, INTRA-PROCEDURE ONCE, 1 dose, Starting on Tue06/27/24 at 1114, Until Tue06/27/24 at 1114, Routine 1114 (Contrast Given - Provider: Shira Mckeon RT) sodium chloride 0.9 % bolus solution 1,000 mL (COMPLETED) 1,000 mL, IV, ONE TIME ONLY, 1 dose, On Tue06/27/24 at 1130, at 2,000 mL/hr, Administer over 30 Minutes, Routine 1122 (New Bag - Prov ider: Elisa Del Toro, RN)1200 (Stopped - Provider: Elisa Del Toro, RN) sodium chloride bacteriostatic 0.9 % injection 10 mL 10 mL, IV, SEE ADMIN INSTRUCTIONS, Starting on Tue06/27/24 at 1114, Until Discontinued, Routine 1000 (Given - Provid er: Shira Mckeon, RT) sodium chloride flush injection 5 mL(Linked Group 1) 5 mL, IV, SEE ADMIN INSTRUCTIONS, Starting on Tue06/27/24 at 0741, Until Discontinued, Routine Linked Groups Order Group 1: SALINE LOCK IV Now (COMPLETED) Routine, ONE TIME, On Tue06/27/24 at 0745, For 1 occurrence, When: Now And sodium chloride flush injection 5 mLJump to med 5 mL, IV, SEE ADMIN INSTRUCTIONS, Starting on Tue06/27/24 at 0741, Until Discontinued, Routine documented in this encounter Care Teams Head Setter Relationship Specialty Start Date End Date Wilda Sloan MD [address] [place] [phone] PCP - General Family Practice 10/28/20 documented as of this encounter
--- OUTSIDE RECORDS SUMMARY | 2024-06-27 16:27 | XMS_ITS | Encounter Summary ---
Author Organization [employer] Address [address] [place] [address] Care Team Providers Care Technology Architect Name Role Phone Wilda Sloan MD Primary Care Provider [phone] Encounter Details Date Type Department Care Team (Late st Contact Info) Description 06/19/2024 External Device Data [facility] ABSTRACTION Provider, Abstract [...] on file Legal Sex Female 4:41 AM [employer] Gender Identity Not on file Sexual Orientation Not on file documented as of this encounter Plan of Treatment Not on file documented as of this encounter Visit Diagnoses Not on filedocumented in this encounter Care Teams Technology Architect Relationship Specialty Start Date End Date Wilda Sloan MD [address] [place] [address] PCP - General Family Practice 10/28/20 documented as of this encounter
--- OUTSIDE RECORDS SUMMARY | 2024-06-27 16:27 | XMS_ITS | Clinical Summary ---
Author Organization Online Dealer Address [address] [place]tern: Epic Prelude ADT AYALA ZHAO [address] Care Team Providers Care Hogshead Hooper Name Role Phone Wilda Sloan MD Primary Care Provider [phone] Allergies Active Allergy Reactions Criticality Noted Date Comments Lansoprazole Unknown 02/06/2024 Naproxen Unknown 02/06/2024 Sulfa (Sulfonamide Antibiotics) Unknown 01/19 Medications albuterol sulfate HFA 90 mcg/actuation aerosol inhaler Take 2 Puffs by inhalation every 6 hours as needed for Shortness of Breath. Active aspirin (ECOTRIN EC) 81 mg Tablet, Delayed Release (E.C.) Take 81 mg by mouth daily. Active galcanezumab-g nlm (Emgality Pen) 120 mg/mL Pen Injector Inject by subcutaneous injection every 30 days. Active levothyroxine 88 mcg tablet Take 88 mcg by mouth daily in the morning. Active memantine (NAMENDA) 5 mg Tablet Take 10 mg by mouth 2 times daily. Active montelukast (SINGULAIR) 10 mg tablet Take 10 mg by mouth daily. Active pantoprazole (PROTONIX) 40 mg Tablet, Delayed Release (E.C.) Take 40 mg by mouth 2 times daily. Active fluticasone propion-salmet Juan (ADVAIR DISKUS,WIXELA INHUB) 500-50 mcg/dose disk inhaler Take 1 Puff by inhalation 2 times daily. Active methocarbamoL (ROBAXIN) 500 mg tablet Take 1,000 mg by mouth 2 times daily as needed for Spasm. Active baclofen (LIORESAL) 10 mg tablet Take 1 Tablet by mouth late in the day. Active LACTOBAC NO.21-BIFIDOBA C NO.9 ORAL Take 1 Tablet by mouth daily. Active clobetasoL (TEMOVATE) 0.05 % Cream Apply to affected area see administration instructions. Active clotrimazole (GYNE-LOTRIMIN ) 1 % vaginal cream Insert vaginally 2 times daily. Active fluconazole (DIFLUCAN) 200 mg tablet Take 200 mg by mouth daily. Active mupirocin calcium (BACTROBAN) 2 % Cream Apply to affected area 3 times daily. Active nitrofurantoin (MACROBID) 100 mg capsule Take 100 mg by mouth 2 times daily. Active omega 8-vbd-xsh-fish oil 1,000 mg (250 mg-750 mg)/5 mL Liquid Take 1 Tablet by mouth 2 times daily. Active oxyBUTYnin (DITROPAN) 5 mg tablet Take 5 mg by mouth late in the day. Active triamcinolone acetonide (KENALOG) 0.1 % Cream Apply to affected area 3 times daily. Active valACYclovir (VALTREX) 500 mg tablet Take 500 mg by mouth 2 times daily as needed. Active Active Problems Problem Noted Date Diagnosed Date Acute blood loss anemia 06/27/2024 Lower GI bleed 06/27/2024 Acute cystitis with hematuria 02/06/2024 Encounters Date Type Department Care Team Description 06/27/2024 7:19 AM CDT - 06/27/2024 3:21 PM CDT Emergency [facility] Emergency Medicine [address] [place] [address] Ketty Elkins MD Lower GI bleed (Primary Dx); Acute blood loss anemia Discharge Disposition: [facility] 06/19/2024 External Device Data STL ABSTRACTION Provider, Abstract 06/12/2024 External Device Data STL ABSTRACTION Provider, Abstract 06/06/2024 External Device Data STL ABSTRACTION Provider, Abstract 05/08/2024 External Device Data STL ABSTRACTION Provider, Abstract 05/01/2024 External Device Data STL ABSTRACTION Provider, Abstract 05/01/2024 External Device Data STL ABSTRACTION Provider, Abstract 05/01/2024 External Device Data STL ABSTRACTION Provider, Abstract 04/12/2024 External Device Data STL ABSTRACTION Provider, Abstract 04/03/2024 External Device Data STL ABSTRACTION Provider, Abstract from Last 3 Months Family History Medical History Relation Name Comments Breast Cancer Neg Hx Social History Tobacco Use Types Packs/Day Years Used Date Smoking Tobacco: Never Smokeless Tobacco: Never Tobacco Cessation:Counseling Given: Not Answered Alcohol Use Standard Drinks/Week Comments Not Currently 0 (1 standard drink = 0.6 oz pur e alcohol) Feeling Safe Answer Date Recorded Are you in a relationship wi th someone who hurts you emotionally and/or physically? 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[employer] Gender Identity Not on file Sexual Orientation Not on file Last Filed Vital Signs Vital Sign Reading [...] Mass Index 43.29 06/27/2024 7:25 AM CDT Plan of Treatment Health Maintenance Due Date Last Done Comments Pre-Diabetes and Diabetes Screening 1965 HEPATITIS B VACCINES (1 of 3 - 19+ 3-dose series) 01/04/1984 HPV/Cotest (21-29) 1986 CERVICAL CANCER SCREENING 1995 HPV/Cotest (30-65) 1995 PAP SMEAR 1995 COLORECTAL SCREENING 2010 Colorectal Cancer Screening 2010 FIT-DNA Q 3 years 2010 FIT/FOBT Q 1 year 2010 Flex Sig/CT Colonography Q 5 years 2010 BREAST CANCER SCREENING 05/24/2013 05/25/19 13, 11/23/2011, 05/20/2011, Additional history exists ZOSTER VACCINE (1 of 2) 2015 DTAP/TDAP/TD VACCINES (2 - T d or Tdap) 07/02/2020 07/02/2010 INFLUENZA VACCINE (#1) 2023 , 03/07/2018, 04/07/2015, Additional history exists COVID-19 Vaccine (2023-2 5 season) 2023 05/21/2021, 11/21/2020, 10/21/2020 Procedures Procedure Name Priority Date/Time Associated Diagnosis Comments CTA ABD PELVIS W AND/OR WO CONTRAST Stat 06/27/2024 11:15 AM CDT VERIFICATION BLOOD GROUP Stat 06/27/2024 8:16 AM CDT TYPE AND SCREEN Stat 06/27/2024 8:16 AM CDT DIFFERENTIAL, MANUAL Stat 06/27/2024 8:16 AM CDT PTT Stat 06/27/2024 8:16 AM CDT PROTIME-INR Stat 06/27/2024 8:16 AM CDT LIPASE Stat 06/27/2024 8:16 AM CDT C-REACTIVE PROTEIN Stat 06/27/2024 8: 16 AM CDT LACTIC ACID Stat 06/27/2024 8:16 AM CDT BRAIN NATRIURETIC PEPTIDE, BNP OR PROBNP Stat 06/27/2024 8:16 AM CDT COMPREHENSIVE METABOLIC PANEL Stat 06/27/2024 8:16 AM CDT SEDIMENTATION RATE Stat 06/27/2024 8: 16 AM CDT CBC WITH DIFFERENTIAL Stat 06/27/2024 8:16 AM CDT MAMMO DIAGNOSTIC BILATERAL W OR WO CAD Routine 05/24/2012 1:28 PM SUPERINTENDENT COMMUNICATIONS Abnormal mammogram, unspecified from Last 3 Months or Most Recently Relevant to Health Maintenance Results * CTA ABD PELVIS W AND/OR [...] abdominal aorta in the abdomen and pelvis. us Ketty Elkins MD CT ORDERABLES Final Result * VERIFICATION BLOOD GROUP (06/27/2024 8:16 AM CDT) ABO/RH TYPE A POS 06/27/2024 9:19 AM CDT [facility] Blood BLOOD SPECIMEN / Unknown Collection / Unknown 06/27/2024 8:16 AM CDT 06/27/2024 9:08 AM CDT us Ketty Elkins MD BLOOD BANK ORDERABLES Final Res ult [facility] CLIA # [id number] [address] [place] [address] * MANUAL DIFFERENTIAL (06/27/2024 8:16 AM CDT) [facility] PLATELET EST. Consistent w Count 06/27/2024 9:08 AM CDT [facility] ANISOCYTOSIS 1+ /hpf 06/27/2024 9:08 AM CDT [facility] MICROCYTES 2+ /hpf 06/27/2024 9:08 AM CDT [facility] HYPOCHROMIA 1+ /hpf 06/27/2024 9:08 AM CDT [facility] OVALOCYTES 2+ /hpf 06/27/2024 9:08 AM CDT [facility] Blood BLOOD SPECIMEN / Unknown Collection / Unknown 06/27/2024 8:16 AM CDT 06/27/2024 8:30 AM CDT us Ketty Elkins MD HEMATOLOGY ORDERABLES COM Final Result [facility] CLIA # [id number] [address] [place] [address]47 * LACTIC ACID (06/27/2024 8:16 AM CDT) [facility] LACTIC ACID 1.4 <=2.0 mmol/L 06/27/2024 8:53 AM CDT [facility] Blood BLOOD SPECIMEN / Unknown Collection / Unknown 06/27/2024 8:16 AM CDT 06/27/2024 8:30 AM CDT us Ketty Elkins MD CHEMISTRY ORDERABLES Final Resu lt [facility] CLIA # [id number] [address] [place] [address] 22357 * (ABNORMAL) CBC WITH DIFFERENTIAL (06/27/2024 8:16 AM CDT) [facility] WBC 9.2 4.0 - 10.0 K/uL 06/27/2024 9:08 AM [facility] NRBCS 1 % 06/27/2024 9:08 AM [facility] RBC 3.16(L) 3.93 - 5.22 M/uL 06/27/2024 9:08 AM [facility] HEMOGLOBIN 8.0(L) 11.2 - 15.7 g/dL 06/27/2024 9:08 AM [facility] HEMATOCRIT 25.5(L) 34.1 - 44.9 % 06/27/2024 9:08 AM [facility] MCV 80.7 79.4 - 94.8 fL 06/27/2024 9:08 AM [facility] MCH 25.3(L) 25.6 - 32.2 pg 06/27/2024 9:08 AM [facility] MCHC 31.4(L) 32.2 - 35.5 g/dL 06/27/2024 9:08 AM [facility] RDW 15.9(H) 11.0 - 14.5 % 06/27/2024 9:08 AM [facility] RDW-STDEV 46.5 36.9 - 56.9 fL 06/27/2024 9:08 AM [facility] PLATELETS 542(H) 163 - 337 K/uL 06/27/2024 9:08 AM [facility] MPV 9.1(L) 10.0 - 14.8 fL 06/27/2024 9:08 AM [facility] NEUTROPHILS 66 34 - 71 % 06/27/2024 9:08 AM [facility] LYMPHOCYTES 21 19 - 52 % 06/27/2024 9:08 AM [facility] MONOCYTES 8 5 - 13 % 06/27/2024 9:08 AM [facility] EOSINOPHILS 3 1 - 6 % 06/27/2024 9:08 AM [facility] BASOPHILS 1 0 - 1 % 06/27/2024 9:08 AM CDT [facility] IMMATURE GRANULOCYTES 1 % 06/27/2024 9:08 AM T [facility] NEUTROPHIL ABSOLUTE 6.03 1.56 - 6.13 K/uL 06/27/2024 9:08 AM T [facility] LYMPHOCYTE ABSOLUTE 1.92 1.20 - 3.40 K/uL 06/27/2024 9:08 AM T [facility] MONOCYTE ABSOLUTE 0.77(H) 0.24 - 0.36 K/uL 06/27/2024 9:08 AM CDT [facility] EOSINOPHIL ABSOLUTE 0.24 0.04 - 0.36 K/uL 06/27/2024 9:08 AM T [facility] BASOPHILS ABSOLUTE 0.08 0.01 - 0.08 K/uL 06/27/2024 9:08 AM [facility] IMMATURE GRANULOCYTES ABSOLUTE 0.12 K/uL 06/27/2024 9:08 AM T [facility] Blood BLOOD SPECIMEN / Unknown Collection / Unknown 06/27/2024 8:16 AM CDT 06/27/2024 8:30 AM CDT us Ketty Elkins MD HEMATOLOGY ORDERABLES Final Res ult Performing Organization Address City/[facility]/ZIP Co de Phone Number [facility] CLIA # [id number] [address] [place] [address] 65548 * PTT (06/27/2024 8:16 AM CDT) PTT 26.8 25.8 - 34.0 seconds 06/27/2024 8:47 AM CDT [facility] Blood BLOOD SPECIMEN / Unknown Collection / Unknown 06/27/2024 8:16 AM CDT 06/27/2024 8:30 AM CDT us Ketty Elkins MD HEMATOLOGY ORDERABLES Final Res ult [facility] CLIA # [id number] [address] [place] [address] 02514 * (ABNORMAL) SEDIMENTATION RATE (06/27/2024 8:16 AM CDT) ESR (SEDIMENTATION RATE) 74(H) 0 - 30 mm/Hr 06/27/2024 8:43 AM CDT [facility] Blood BLOOD SPECIMEN / Unknown Collection / Unknown 06/27/2024 8:16 AM CDT 06/27/2024 8:30 AM CDT Narrative [facility] - 06/27/2024 8:43 AM CDT Tube Lot: #[id number] Exp Date: 12/18/2025 SR 0125-1 EXP. 09/22/24 SR 0125-2 EXP. 09/22/24 us Ketty Elkins MD HEMATOLOGY ORDERABLES Final Res ult Performing Organization Address City/[facility]/ZIP Co de Phone Number [facility] CLIA # [id number] [address] [place] [address] 74127 * PROTIME-INR (06/27/2024 8:16 AM CDT) PROTIME 13.6 11.9 - 14.6 Seconds 06/27/2024 8:47 AM CDT [facility] INR 1.0 0.9 - 1.1 06/27/2024 8:47 AM CDT [facility] Blood BLOOD SPECIMEN / Unknown Collection / Unknown 06/27/2024 8:16 AM CDT 06/27/2024 8:30 AM CDT us Ketty Elkins MD HEMATOLOGY ORDERABLES Final Res ult [facility] CLIA # [id number] [address] [place] [address] 87924 * TYPE AND SCREEN (06/27/2024 8:16 AM CDT) ABO/RH TYPE A POS 06/27/2024 9:19 AM CDT [facility] ANTIBODY SCREEN Negative 06/27/2024 9:19 AM CDT [facility] Blood BLOOD SPECIMEN / Unknown Collection / Unknown 06/27/2024 8:16 AM CDT 06/27/2024 8:30 AM CDT us Ketty Elkins MD BLOOD BANK ORDERABLES Final Res ult Performing Organization Address City/[facility]/ZIP Co de Phone Number [facility] CLIA # [id number] [address] [place] [address] 56466 * (ABNORMAL) C-REACTIVE PROTEIN (06/27/2024 8:16 AM CDT) CRP 119.0(H) <5.0 mg/L 06/27/2024 9:08 AM CDT [facility] Blood BLOOD SPECIMEN / Unknown Collection / Unknown 06/27/2024 8:16 AM CDT 06/27/2024 8:30 AM CDT us Ketty Elkins MD CHEMISTRY ORDERABLES Final Resu lt Performing Organization Address [facility] Co de Phone Number [facility] CLIA # [id number] [address] [place] [address] 33043 * (ABNORMAL) BRAIN NATRIURETIC PEPTIDE, BNP OR PROBNP (06/27/2024 8:16 AM CDT) PROBNP, N TERMINAL 229(H) 0 - 125 pg/mL 06/27/2024 9:08 AM CDT [facility] Comment: INTERPRETIVE COMMENT based on diagnosis: [...] ORDERABLES Final Resu lt Performing Organization Address [facility]/ZIP Co de Phone Number [facility] CLIA # [id number] [address] [place] [address] 82107 * LIPASE (06/27/2024 8:16 AM CDT) LIPASE 24 13 - 60 U/L 06/27/2024 9:08 AM CDT [facility] Blood BLOOD SPECIMEN / Unknown Collection / Unknown 06/27/2024 8:16 AM CDT 06/27/2024 8:30 AM CDT us Ketty Elkins MD CHEMISTRY ORDERABLES Final Resu lt Performing Organization Address [facility] Co de Phone Number [facility] CLIA # [id number] [address] [place] [address] 70509 * (ABNORMAL) COMPREHENSIVE METABOLIC PANEL (06/27/2024 8:16 AM CDT) SODIUM 138 136 - 145 mmol/L 06/27/2024 9:08 AM CDT [facility] POTASSIUM 3.5 3.5 - 5.1 mmol/L 06/27/2024 9:08 AM CDT [facility] CHLORIDE 101 98 - 107 mmol/L 06/27/2024 9:08 AM CDT [facility] CO2 24 22 - 29 mmol/L 06/27/2024 9:08 AM CDT [facility] CALCIUM 8.9 8.6 - 10.0 mg/dL 06/27/2024 9:08 AM [facility] BUN 12 6 - 20 mg/dL 06/27/2024 9:08 AM [facility] CREATININE 0.85 0.51 - 0.95 mg/dL 06/27/2024 9:08 AM [facility] GLUCOSE 133(H) 74 - 99 mg/dL 06/27/2024 9:08 AM [facility] TOTAL PROTEIN 6.4(L) 6.6 - 8.7 g/dL 06/27/2024 9:08 AM [facility] ALBUMIN 3.1(L) 4.0 - 4.9 g/dL 06/27/2024 9:08 AM [facility] BILIRUBIN TOTAL 0.4 <=1.2 mg/dL 06/27/2024 9:08 AM [facility] ALKALINE PHOSPHATASE 102 35 - 104 U/L 06/27/2024 9:08 AM [facility] AST 21 0 - 35 U/L 06/27/2024 9:08 AM [facility] ALT 14 0 - 35 U/L 06/27/2024 9:08 AM [facility] GFR >60 >=60 mL/min/1.7 3 sq meter 06/27/2024 9:08 AM [facility] Comment:eGFR calculated with 2020 CKD-EPI equation. Vegetarian diet, extremely high or low muscle mass, and may affect results. Cystatin C with Glomerular Filtration Rate is a suitable alternative for these patients. ANION GAP 13 5 - 20 mmol/L 06/27/2024 9:08 AM [facility] Blood BLOOD SPECIMEN / Unknown Collection / Unknown 06/27/2024 8:16 AM CDT 06/27/2024 8:30 AM T us Ketty Elkins MD CHEMISTRY ORDERABLES Final Resu lt [facility] CLIA # [id number] [address] [place] [address] * MAMMO DIAGNOSTIC BILATERAL W OR WO CAD (05/24/2012 1:28 PM SUPERINTENDENT COMMUNICATIONS) Anatomical Region Laterality Modality Breast Bilateral Other Narrative 05/24/2012 3:23 PM SUPERINTENDENT COMMUNICATIONS BILATERAL DIAGNOSTIC MAMMOGRAM 05/24/2012 The patient had [...] by the Computer Aided Detection System (CAD), Attivioer, Version 8.3. CONCLUSION ??No significant mammographic change is seen. ??I would now recommend followup screening mammogram in one year. ?? Patient received a result/recommendation letter. ?? KB/ekp ? - uploaded from Power Scribe Procedure Note Aurora Valenzuela MD - 05/23/2022 BILATERAL DIAGNOSTIC MAMMOGRAM 05/24/2012 The patient had [...] by the Computer Aided Detection System (CAD), Time Warden ImageShoot it!er, Version 8.3. CONCLUSION No significant mammographic change is seen. I would now recommend followup screening mammogram in one year. Patient received a result/recommendation letter. LIVIER/brody - uploaded from [email or web address] Rocket Wilda Sloan MD MAMMO ORDERABLES Final Res ult from Last 3 Months or Most Recently Relevant to Health Maintenance Insurance [place] [address] [address] [place] [address] DUAL COMPLETE HMO [facility] [place] [id number] Care Teams Hogshead Hooper Relationship Specialty Start Date End Date Wilda Sloan MD [address] [place] [address] PCP - General Family Practice 10/28/20
--- NOTE | 2024-06-27 16:55 | PC.NURSE ---
Patient is deaf. Must use the language line to interpret.
[2024-06-27 18:11] VITALS: BP 117/71; PULSE 112; RESP 18; TEMP 36.9; O2SAT 100
--- NOTE | 2024-06-27 18:11 | XRR_ITS ---
PROCEDURE INFORMATION: Exam: XR Chest Exam date and time: 06/27/2024 8:13 PM Age: 59 years old Clinical indication: Shortness of breath; Additional info: SOB TECHNIQUE: Imaging protocol: Radiologic exam of the chest. Views: 1 view. COMPARISON: CT chest w con* [id number] 03/24/2018 10:43 AM FINDINGS: Tubes, catheters and devices: None. Lungs: Possible minimal central perihilar pulmonary venous congestion or infiltrates within the lungs, without definite pulmonary edema. The peripheral lungs are otherwise clear. Pleural spaces: No pleural effusion. No pneumothorax. Heart/Mediastinum: Cardiac silhouette appears mildly enlarged. Bones/joints: Mild to moderate generalized bony degenerative changes. Soft tissues: This study is severely limited by patient's large body habitus. XR/XR chest 1V portable [id number] IMPRESSION: 1. Mild enlarged cardiac silhouette. 2. Possible central pulmonary venous congestion or minimal perihilar infiltrates.
[2024-06-27 18:17] LABS: Hematocrit 25.7 % (36-47); Mean Corpuscular HGB Conc 29.2 g/dL (30-55); Mean Corpuscular Hemoglobin 24.8 pg (27-33); Mean Corpuscular Volume 85.1 fl (85-98); Mean Platelet Volume 8.6 fL (7.4-10.4); Platelet Count 494 10^3/cmm (157-399); Red Blood Count 3.02 10^6/uL (3.85-5.65); Red Cell Distribution Width 15.9 % (12.1-15.1); White Blood Count 7.45 10^3/uL (3.29-11.43)
--- NOTE | 2024-06-27 18:18 | PM.HP ---
Providers/Chief Complaint Admitting Physician: Yonathan Nuñez Primary Care Provider: Wilda Sloan MD Chief Complaint: GI bleed History of Present Illness Poppy Villeda is a 59 year old female who is deaf, history of hypertension, hypothyroidism, migraines, who presents [facility] for bloody stools. Patient reports bloody stool since May, reports bright red blood, denies any blood or black stools, no hematemesis, does report lower abdominal pain, she does use aspirin at home, does use meloxicam at home, she denies a history of GI bleeds in past, she did require a blood transfusion a long time ago, she has never reported that she had any EGD or colonoscopy, no personal family history of colon cancer, she saw her primary care provider, she was told that she had low hemoglobin, and low iron levels so she was directed to go to the ER at [facility], for the [facility] she was diagnosed with a GI bleed, and transferred to [facility], currently she is alert oriented x 3, following all commands, blood pressure 117/71, pulse is 112, respiratory to 18 she is 100% on room air, currently denies any bloody black stools, no lightheadedness, I had a conversation with patient using design printer balloon Review of Systems Card: Denies: chest pain Resp: Denies: dyspnea GI: Reports: abdominal pain Medications/Allergies Home Medications ?Medication ?Instructions ?Recorded ?Confirmed ?Last Taken ?Type albuterol sulfate 90 mcg/actuation 2 puff inhalation Q6H 04/17/19 08/24/23 Unknown History aerosol inhaler (ProAir HFA) aspirin 81 mg tablet,delayed 81 mg PO QDAY 04/17/19 08/24/23 Unknown History release (Aspir-) budesonide-formoterol HFA 80 2 puff inhalation BID 04/17/19 08/24/23 Unknown History mcg-4.5 mcg/actuation aerosol inhaler (Symbicort) flaxseed oil 1,000 mg capsule 1,000 mg PO QDAY 04/17/19 08/24/23 Unknown History ([place]-3 Flaxseed Oil) levothyroxine 88 mcg capsule 88 mcg PO QDAY 04/17/19 08/24/23 Unknown History meloxicam 15 mg tablet 15 mg PO QDAY 04/17/19 08/24/23 Unknown History montelukast 10 mg tablet 10 mg PO QDAY 04/17/19 08/24/23 Unknown History pantoprazole 40 mg tablet,delayed 40 mg PO QDAY 04/17/19 08/24/23 Unknown History release topiramate 50 mg tablet See Rx Instructions .Route 01/17/24 Unknown Rx .COMPLEX #90 tabs memantine 10 mg tablet See Rx Instructions .Route 03/12/24 Unknown Rx .COMPLEX #60 tabs galcanezumab-gnlm 120 mg/mL See Rx Instructions .Route 05/08/24 05/08/24 Unknown Rx subcutaneous pen injector .COMPLEX #1 mL (Emgality Pen) Allergies Allergy/AdvReac Type Severity Reaction Status Date / Time lansoprazole (From PREVACID Allergy Unknown UNKNOWN Verified 05/10/23 10:06 NapraPAC) naproxen (From PREVACID Allergy Unknown UNKNOWN Verified 05/10/23 10:06 NapraPAC) Sulfa (Sulfonamide Allergy Unknown UNKNOWN Verified 05/10/23 10:06 Antibiotics) sulfamethoxazole (From Allergy Unknown UNKNOWN Verified 05/10/23 10:06 Bactrim) trimethoprim (From Bactrim) Allergy Unknown UNKNOWN Verified 05/10/23 10:06 PFSH Acute PFSH: Medical History (Updated 06/27/24 @ 18:22 by Charbel Victoria MD) History of hypothyroidism Surgical History (Updated 06/27/24 @ 18:21 by hCarbel Victoria MD) H/O: hysterectomy Family History Other CAD (coronary artery disease) Diabetes Hypertension Denies family history of Stroke Social History Smoking and tobacco/nicotine status: never used tobacco/nicotine Alcohol intake: never Substance/Drug Use: never Vitals/I&O/Wt Last Vital Signs Temp 98.5 F 06/27/24 18:11 Pulse 112 H 06/27/24 18:11 Resp 18 06/27/24 18:11 BP 117/71 06/27/24 18:11 Pulse Ox 100 06/27/24 18:11 O2 Del Method Room Air 06/27/24 18:11 06/27/24 06/27/24 06/27/24 06:59 14:59 22:59 Intake Total 240 / 240 Balance 240 / 240 Weight last 48 hrs Weight 105.143 kg Physical Exam Const: COMMON NORMALS: no acute distress and patient oriented x3 HENMT: COMMON NORMALS: normocephalic HEAD & SCALP: normocephalic Eye: COMMON NORMALS: Equal, round and reactive pupils present Neck/C-Spine: COMMON NORMALS: no JVD Resp: COMMON NORMALS: normal respiratory effort, No retractions, No use of accessory muscles and clear to auscultation bilaterally AUSCULTATION: clear to auscultation bilaterally Cardio: COMMON NORMALS: regular rate, regular rhythm, S1 normal heart sound present and S2 normal heart sound present RATE: regular rate RHYTHM: regular rhythm HEART SOUNDS: S1 normal heart sound present and S2 normal heart sound present GI: COMMON NORMALS: Normal to inspection, nondistended, normoactive bowel sounds present, Soft to palpation and non-tender Extremity: COMMON NORMALS: no calf tenderness and no pedal edema Neuro: COMMON NORMALS: patient oriented x3, CN's II-XII intact bilaterally and moves all extremities Psych: COMMON NORMALS: mental status grossly normal Data 06/27/24 17:42 A&P Assessment and plan (1) Sensorineural deafness: (2) GI bleed: Plan GI bleed -Upper versus lower GI bleed - Plan - Monitor hemodynamics closely - IV fluids -Protonix, Carafate - Check CBC, INR, iron studies - General Surgery consulted, will give 40 of Dulcolax, 1 bottle of mag citrate, n.p.o. midnight plan for EGD colonoscopy tomorrow - Full code - SCDs for DVT prophylaxis Elevated ESR and CRP? - Chest x-ray, UA, blood cultures PDMP PDMP Reviewed: Not Reviewed Attestations Medical Necessity Statement*: Patient requires hospitalization, inpatient, greater than 2 midnights, for GI bleed Diagnoses Sensorineural deafness H90.5 GI bleed K92.2
[2024-06-27 18:30] LABS: INR 1.07 (0.8-1.2)
[2024-06-27 18:36] LABS: Erythrocyte Sedimentation Rate 53 mm/hr (0-15)
[2024-06-27 18:43] LABS: Slide Review Slide Review Perform
[2024-06-27 18:44] LABS: Absolute Eosinophils 0.3 10^3/cmm (0.0-0.7); Absolute Segmented Neutrophil 3.6 10/cmm (1.6-7.1); Band Neutrophils Absolute 0.8 10^3/cmm (0.0-1.2); Eosinophils 4 %; Lymphocytes 29 %; Monocytes Absolute 0.1 10^3/cmm (0.1-0.6); Segmented Neutrophils 48 %; Total Cells Counted 100 (0-100)
[2024-06-27 18:45] LABS: Absolute Neutrophil 4.4 10^3/cmm (1.4-6.5); Giant Platelets Trace; Lymphocytes Absolute 2.2 10^3/cmm (1.2-3.4); Platelet Estimate Increased (Normal)
[2024-06-27 20:00] VITALS: BP 106/60; PULSE 91; RESP 17; TEMP 36.9; O2SAT 99
[2024-06-27] MEDS: bisacodyl 5 mg Tablet 40 MG PO (20:12)
[2024-06-27] MEDS: sucralfate 1 gm/10 mL Oral Liq UDC PO (20:12)
[2024-06-27] MEDS: pantoprazole 40 mg SDV IVP (20:12)
[2024-06-27] MEDS: magnesium citrate Btl 296 mL 150 ML PO (20:13)
[2024-06-27] MEDS: sodium chloride 0.9% 1,000 ML 125 ML IV (20:18)
--- NOTE | 2024-06-27 20:50 | PM.CONSULT ---
Providers/Reason For Consult Consulting Physician/Specialty*: Dr. Kessler general surgery Reason for Consult*: GI bleed Attending Physician: Yonathan Nuñez Primary Care Provider: Wilda Sloan MD History of Present Illness History of Present Illness Poppy Villeda is a 59 year old female who presents with anemia. Medicine consult and surgery for GI bleed workup. Patient has had some bloody stools. No melena. Medications/Allergies Home Medications ?Medication ?Instructions ?Recorded ?Confirmed ?Last Taken ?Type levothyroxine 88 mcg capsule 88 mcg PO QDAY 04/17/19 06/28/24 06/27/24 History meloxicam 15 mg tablet 15 mg PO QDAY 04/17/19 06/28/24 06/27/24 History montelukast 10 mg tablet 10 mg PO QDAY 04/17/19 06/28/24 06/27/24 History pantoprazole 40 mg tablet,delayed 40 mg PO QDAY 04/17/19 06/28/24 06/27/24 History release topiramate 50 mg tablet See Rx Instructions .Route 01/17/24 06/28/24 06/27/24 Rx .COMPLEX #90 tabs galcanezumab-gnlm 120 mg/mL See Rx Instructions .Route 05/08/24 06/28/24 06/19/24 Rx subcutaneous pen injector .COMPLEX #1 mL (Emgality Pen) albuterol sulfate 90 mcg/actuation 2 puff inhalation Q6H PRN 06/28/24 06/28/24 Unknown History aerosol inhaler Shortness Of Breath aspirin 81 mg tablet,delayed 81 mg PO DAILY 06/28/24 06/28/24 06/27/24 History release baclofen 10 mg tablet 10 mg PO DAILY PRN Pain 06/28/24 06/28/24 Unknown History clobetasol 0.05 % topical cream See Rx Instructions .Route .COMPLEX 06/28/24 06/28/24 Unknown History flaxseed oil 1,000 mg capsule 1,000 mg PO DAILY 06/28/24 06/28/24 06/27/24 History fluconazole 200 mg tablet See Rx Instructions .Route .COMPLEX 06/28/24 06/28/24 Unknown History fluticasone 500 mcg-salmeterol 50 1 inh inhalation BID 06/28/24 06/28/24 06/27/24 History mcg/dose blistr powdr for inhalation memantine 10 mg tablet 10 mg PO BID 06/28/24 06/28/24 06/27/24 History methocarbamol 500 mg tablet 500 - 1,000 mg PO BID PRN Pain 06/28/24 06/28/24 Unknown History oxybutynin chloride 5 mg See Rx Instructions .Route .COMPLEX 06/28/24 06/28/24 06/27/24 History tablet,extended release 24 hr valacyclovir 500 mg tablet See Rx Instructions .Route .COMPLEX 06/28/24 06/28/24 Unknown History Allergies Allergy/AdvReac Type Severity Reaction Status Date / Time lansoprazole (From PREVACID Allergy Unknown UNKNOWN Verified 05/10/23 10:06 NapraPAC) naproxen (From PREVACID Allergy Unknown UNKNOWN Verified 05/10/23 10:06 NapraPAC) Sulfa (Sulfonamide Allergy Unknown UNKNOWN Verified 05/10/23 10:06 Antibiotics) sulfamethoxazole (From Allergy Unknown UNKNOWN Verified 05/10/23 10:06 Bactrim) trimethoprim (From Bactrim) Allergy Unknown UNKNOWN Verified 05/10/23 10:06 Current Medications Generic Name Dose Route Start Last Admin Trade Name Freq PRN Reason Stop Dose Admin Sodium Chloride 1,000 mls @ 125 mls/hr 06/27/24 18:15 06/27/24 20:18 Sodium Chloride 0.9% IV 125 mls/hr .Q8H KALYN Administration Pantoprazole Sodium 40 mg 06/27/24 18:30 06/27/24 20:12 Pantoprazole 40 Mg Sdv IVP 40 mg Q12H KALYN Administration Sucralfate 1 gm 06/27/24 18:30 06/27/24 20:12 Sucralfate 1 Gm/10 Ml Oral Liq Udc PO 1 gm Q6H KALYN Administration PFSH Acute PFSH: Medical History (Updated 06/27/24 @ 18:22 by Charbel Victoria MD) History of hypothyroidism Surgical History (Updated 06/27/24 @ 18:21 by Charbel Victoria MD) H/O: hysterectomy Family History Other CAD (coronary artery disease) Diabetes Hypertension Denies family history of Stroke Social History Smoking and tobacco/nicotine status: never used tobacco/nicotine Alcohol intake: never Substance/Drug Use: never Vitals/I&O/Wt Last Vital Signs Temp 98.5 F 06/27/24 18:11 Pulse 112 H 06/27/24 18:11 Resp 18 06/27/24 18:11 BP 117/71 06/27/24 18:11 Pulse Ox 100 06/27/24 18:11 O2 Del Method Room Air 06/27/24 18:11 06/27/24 06/27/24 06/27/24 06:59 14:59 22:59 Intake Total 240 / 240 Balance 240 / 240 Weight last 48 hrs Weight 231 lb 12.8 oz Physical Exam Narrative: Chest: Unlabored breathing room air. No lymphadenopathy. Heart: Regular rate and rhythm. Abdomen: Soft, nontender, nondistended. No masses or lymphadenopathy. Data 06/28/24 04:40 06/28/24 04:40 A&P Assessment and plan (1) GI bleed: Plan 59-year-old female who presents with anemia. I have explained the risks and benefits of a diagnostic colonoscopy and the patient agrees to proceed. I have explained the risks and benefits of a diagnostic EGD and the patient agrees to proceed. PDMP PDMP Reviewed: Not Reviewed Coding Level of Care Code 29016 Diagnoses GI bleed K92.2
[2024-06-28] VITALS (13 sets, daily range): BP systolic 98–127; BP diastolic 47–70; PULSE 64–98; RESP 16–20; TEMP 36.1–37; O2SAT 93–100
[2024-06-28 00:47] LABS: C Reactive Protein 101.3 mg/L (0.0-4.9)
[2024-06-28 01:19] LABS: Ferritin 78 ng/mL (15-150); Iron 14 ug/dL (37-145); Percent Saturation 10.8 % (20-50); Total Iron Binding Capacity 129 mcg/dl; Unsaturated Iron Binding 115 ug/dL (112-347)
[2024-06-28] MEDS: sucralfate 1 gm/10 mL Oral Liq UDC PO ×3 (01:43→19:44)
--- NOTE | 2024-06-28 03:15 | PC.NURSE ---
THIS RN GAVE PT THE MAG CITRATE AND EXPLAINED THE IMPORTANCE OF THE MEDICATION IN ORDER TO GET HER COLONOSCOPY AND EGD DONE ON 06/28. THIS RN EDUCATED THE PT TO DRINK IT BEFORE MIDNIGHT. THIS RN CHECKED OFTEN AND ENCOURAGED THE PT TO TAKE DRINKS. PT ONLY TOOK BABY SIPS EACH TIME AND THEN SIGNED YUCK THIS IS BAD THIS RN REITERATED THE IMPORTANCE OF THIS MEDICATION AND THAT IF THE PT CAN'T SUCCESSFULLY FINISH IT THE PROCEDURE MIGHT GET PUSHED BACK UNTIL SHE CAN TOLERATE IT. PT SIGNED OKAY. IT MAKES ME POOP ALOT THIS RN EXPLAINED THAT THAT WAS A NORMAL EFFECT AND WAS WHAT WE WERE LOOKING FOR. AT THIS TIME PT HAS ONLY DRINK ABOUT 15ML AND IS REFUSING TO DRINK ANYMORE. PT ALSO KEEPS FORGETTING TO NOT FLUSH AFTER GOING TO THE BATHROOM SO THIS RN CAN NOT ASSESS HER BOWEL MOVEMENTS.
--- NOTE | 2024-06-28 04:21 | PC.NURSE ---
THIS RN TOLD THE PT THAT WE NEEDED A URINE SAMPLE. THE CNAS PLACED A HAT IN THE PT TOILET TO OBTAIN THE SAMPLE. THE PT IS DUMPING THE URINE AND FLUSHING WITHOUT LETTING STAFF KNOW. RN AND MERCHANDISING MANAGER EXPLAINED THAT WE NEEDED A SAMPLE AND NEED TO MEASURE HER URINE AND PT GOT FRUSTRATED WITH STAFF AND SHE IS REFUSING.
--- NOTE | 2024-06-28 04:22 | PC.NURSE ---
patient refuses to let staff measure output for urine or stool, patient is up ad holly and flushes toilet and empties hat before we can take observation, and doesnt tell staff when she goes. Patient was educated on importance of letting us document and observe output she refuses to let us and presents very agitated behavior waving staff away. nurse notified
[2024-06-28] MEDS: sodium chloride 0.9% 1,000 ML 125 ML IV ×2 (05:23→22:26)
[2024-06-28 05:39] LABS: Basophils % 0.8 %; Eosinophils # 0.1 10^3/uL (0.0-0.8); Eosinophils % 2.1 %; Hematocrit 21.1 % (36-47); Lymphocytes # 1.5 10^3/uL (0.8-4.8); Lymphocytes % 29.2 %; Mean Corpuscular HGB Conc 29.9 g/dL (30-55); Mean Corpuscular Volume 83.7 fl (85-98); Mean Platelet Volume 8.9 fL (7.4-10.4); Monocytes # 0.5 10^3/uL (0.2-0.9); Monocytes % 9.6 %; Neutrophils # 2.97 10^3/uL (1.8-7.7); Nucleated Red Blood Cells # 0.1 /100WBC; Platelet Count 478 10^3/cmm (157-399); Red Blood Count 2.52 10^6/uL (3.85-5.65); White Blood Count 5.21 10^3/uL (3.29-11.43)
[2024-06-28 05:43] LABS: INR 1.13 (0.8-1.2)
[2024-06-28 05:44] LABS: Partial Thromboplastin Time 36.2 SECONDS (23.9-36.7)
[2024-06-28 05:53] LABS: Alanine Aminotransferase 9 U/L (0-33); Albumin Level 2.5 g/dL (3.5-5.2); Alkaline Phosphatase 75 U/L (35-105); Anion Gap 14.3 (5-19); Aspartate Amino Transferase 9 U/L (0-32); Blood Urea Nitrogen 9 mg/dL (6-20); Calcium 7.7 mg/dL (8.5-10.5); Carbon Dioxide 22 mmol/L (22-29); Chloride 109 mmol/L (98-107); Creatinine Clr Calc Pharmacy 102.2876; Globulin 2.6 g/dL (1.3-4.6); Glomerular Filtration Rate 85.6 mL/min (90-130); Glucose 120 mg/dL (65-115); Osmolality Calculated 294 mOsm/kg (285-295); Potassium 3.3 mmol/L (3.5-5.1); Sodium 142 mmol/L (136-145); Total Bilirubin 0.2 mg/dL (0.15-1.2); Total Protein 5.1 g/dL (6.6-8.7)
[2024-06-28 06:23] LABS: Slide Review Slide Review Perform
--- NOTE | 2024-06-28 09:07 | PC.PHAR ---
Pt non-verbal but looked at the list and verified she takes the medications. Pt did indicate she took her medications yesterday. Verified with [facility] pharmacy on [address], [facility] on their current med list, and [facility] mail order on their current med list. Last fill and day supply is added in pharmacy notes.
[2024-06-28] MEDS: pantoprazole 40 mg SDV IVP ×2 (09:08→19:44)
[2024-06-28] MEDS: morphine 4 mg/mL SDV 1 mL 2 MG IVP (11:32)
[2024-06-28] MEDS: iron sucrose 200 MG in sodium chloride 0.9% (100 ml) 100 ML 220 MG IV (11:54)
--- NOTE | 2024-06-28 13:27 | ANES.PREANE2 ---
Pre-Anesthetic Assessment Height/Weight: Height 5 ft 4 in Weight 238 lb 14.4 oz Temp Pulse Resp BP Pulse Ox O2 Del Method 98.0 F 85 18 101/65 96 Room Air 06/28/24 11:29 06/28/24 11:29 06/28/24 11:32 06/28/24 11:29 06/28/24 11:29 06/28/24 11:29 Preop Diagnosis: Gi bleed Operation Date: 06/28/24 15:00 Proposed Procedures p EGD(Not Applicable) - Frankie Kessler MD s Colonoscopy(Not Applicable) - Frankie Kessler MD Was Beta Carrie taken within 24 hours: N/A Was Clonidine taken within 24 hours: N/A Social No alcohol and No tobacco Exam alert, oriented x 3, clear to auscultation bilaterally and regular rate & rhythm Airway Submandibular: within normal limits Cervical ROM: within normal limits Mallampati: Class III Dentition: full Anesthetic Plan ASA status: 3 Anesthesia: MAC Other: No prior issues with anesthesia NPO since yesterday investment banking associate used Patient arrived yesterday with possible GI bleed Hemoglobin 6.3 this morning, K+ 3.3. will give 1 unit PRBCs History of GERD on Protonix Cervical neck issues Vitals currently stable Plan for MAC anesthesia Medications/Allergies Home Medications ?Medication ?Instructions ?Recorded ?Confirmed ?Last Taken ?Type levothyroxine 88 mcg capsule 88 mcg PO QDAY 04/17/19 06/28/24 06/27/24 History meloxicam 15 mg tablet 15 mg PO QDAY 04/17/19 06/28/24 06/27/24 History montelukast 10 mg tablet 10 mg PO QDAY 04/17/19 06/28/24 06/27/24 History pantoprazole 40 mg tablet,delayed 40 mg PO QDAY 04/17/19 06/28/24 06/27/24 History release topiramate 50 mg tablet See Rx Instructions .Route 01/17/24 06/28/24 06/27/24 Rx .COMPLEX #90 tabs galcanezumab-gnlm 120 mg/mL See Rx Instructions .Route 05/08/24 06/28/24 06/19/24 Rx subcutaneous pen injector .COMPLEX #1 mL (Emgality Pen) albuterol sulfate 90 mcg/actuation 2 puff inhalation Q6H PRN 06/28/24 06/28/24 Unknown History aerosol inhaler Shortness Of Breath aspirin 81 mg tablet,delayed 81 mg PO DAILY 06/28/24 06/28/24 06/27/24 History release baclofen 10 mg tablet 10 mg PO DAILY PRN Pain 06/28/24 06/28/24 Unknown History clobetasol 0.05 % topical cream See Rx Instructions .Route .COMPLEX 06/28/24 06/28/24 Unknown History flaxseed oil 1,000 mg capsule 1,000 mg PO DAILY 06/28/24 06/28/24 06/27/24 History fluconazole 200 mg tablet See Rx Instructions .Route .COMPLEX 06/28/24 06/28/24 Unknown History fluticasone 500 mcg-salmeterol 50 1 inh inhalation BID 06/28/24 06/28/24 06/27/24 History mcg/dose blistr powdr for inhalation memantine 10 mg tablet 10 mg PO BID 06/28/24 06/28/24 06/27/24 History methocarbamol 500 mg tablet 500 - 1,000 mg PO BID PRN Pain 06/28/24 06/28/24 Unknown History oxybutynin chloride 5 mg See Rx Instructions .Route .COMPLEX 06/28/24 06/28/24 06/27/24 History tablet,extended release 24 hr valacyclovir 500 mg tablet See Rx Instructions .Route .COMPLEX 06/28/24 06/28/24 Unknown History Allergies Allergy/AdvReac Type Severity Reaction Status Date / Time lansoprazole (From PREVACID Allergy Unknown UNKNOWN Verified 05/10/23 10:06 NapraPAC) naproxen (From PREVACID Allergy Unknown UNKNOWN Verified 05/10/23 10:06 NapraPAC) Sulfa (Sulfonamide Allergy Unknown UNKNOWN Verified 05/10/23 10:06 Antibiotics) sulfamethoxazole (From Allergy Unknown UNKNOWN Verified 05/10/23 10:06 Bactrim) trimethoprim (From Bactrim) Allergy Unknown UNKNOWN Verified 05/10/23 10:06 Current Medications Generic Name Dose Route Start Last Admin Trade Name Freq PRN Reason Stop Dose Admin Sodium Chloride 1,000 mls @ 125 mls/hr 06/27/24 18:15 06/28/24 05:23 Sodium Chloride 0.9% IV 125 mls/hr .Q8H KALYN Administration Iron Sucrose 200 mg/ Sodium 110 mls @ 220 mls/hr 06/28/24 12:00 06/28/24 12:47 Chloride IV 07/02/24 12:29 Infused Q24H KALYN Infusion Morphine Sulfate 2 mg 06/27/24 18:11 06/28/24 11:32 Morphine 4 Mg/Ml Sdv 1 Ml IVP 2 mg Q4H PRN Administration SEVERE PAIN Pantoprazole Sodium 40 mg 06/27/24 18:30 06/28/24 09:08 Pantoprazole 40 Mg Sdv IVP 40 mg Q12H KALYN Administration Sucralfate 1 gm 06/27/24 18:30 06/28/24 09:08 Sucralfate 1 Gm/10 Ml Oral Liq Udc PO 1 gm Q6H KALYN Administration PFSH Anesthesia Medical History (Updated 06/27/24 @ 18:22 by Charbel Victoria MD) History of hypothyroidism Surgical History (Updated 06/27/24 @ 18:21 by Charbel Victoria MD) H/O: hysterectomy Family History Other CAD (coronary artery disease) Diabetes Hypertension Denies family history of Stroke Social History Smoking and tobacco/nicotine status: never used tobacco/nicotine Alcohol intake: never Substance/Drug Use: never Data Anesthesia 06/28/24 04:40 06/28/24 04:40 Short CBC 06/27/24 06/28/24 Range/Units 17:42 04:40 WBC 7.45 5.21 (3.29-11.43) 10^3/uL Hgb 7.50 L 6.30 L* (11.27-16.99) g/dL Hct 25.7 L 21.1 L (36-47) % MCV 85.1 83.7 L (85-98) fl Plt Count 494 H 478 H (157-399) 10^3/cmm Neut % (Auto) 57.0 % Neut # (Auto) 2.97 (1.8-7.7) 10^3/uL BMP 06/28/24 04:40 Sodium 142 Potassium 3.3 L Chloride 109 H Carbon Dioxide 22 BUN 9 Creatinine 0.7 Glucose 120 H Calcium 7.7 L Liver Function 06/28/24 Range/Units 04:40 Total Bilirubin 0.2 (0.15-1.2) mg/dL AST 9 (0-32) U/L ALT 9 (0-33) U/L Alkaline Phosphatase 75 (35-105) U/L Albumin 2.5 L (3.5-5.2) g/dL Blood Bank 06/28/24 11:44 Blood Type A Positive Rho(D) Type Rh positive Antibody Screen Negative Coags 06/27/24 06/27/24 06/28/24 17:42 21:11 04:40 ESR 53 H PT 14.60 15.30 H INR 1.07 1.13 APTT 36.2 C-Reactive Protein 101.3 H Microbiology 06/27/24 21:15 Blood Culture - Preliminary Blood SPECIMEN COLLECTED 06/27/24 21:11 Blood Culture - Preliminary Blood SPECIMEN COLLECTED Cardiac Studies: No Data to Display
--- NOTE | 2024-06-28 14:43 | P.PN_ITS ---
Subjective 2 Subjective: Hgb dropped transfused 1 u RBCs in GI lab No hematochezia, no melena Vitals/I&O/Wt Last Vital Signs Temp 98.0 F 06/28/24 11:29 Pulse 85 06/28/24 11:29 Resp 18 06/28/24 11:32 BP 101/65 06/28/24 11:29 Pulse Ox 96 06/28/24 11:29 O2 Del Method Room Air 06/28/24 11:29 06/27/24 06/28/24 06/28/24 22:59 06:59 14:59 Intake Total 240 / 240 1000 / 1240 110 / 110 Balance 240 / 240 1000 / 1240 110 / 110 Weight last 48 hrs Weight 238 lb 14.4 oz Weight 231 lb 12.8 oz Physical Exam 2 Narrative: RRR unlabored breathing RA abdomen soft, nt, nd Data 06/28/24 04:40 06/28/24 04:40 Micro: Microbiology 06/27/24 21:15 Blood Culture - Preliminary Blood SPECIMEN COLLECTED 06/27/24 21:11 Blood Culture - Preliminary Blood SPECIMEN COLLECTED A&P Assessment and plan (1) GI bleed: Plan 59yo F who presented with anemia. EGD/colonoscopy - no bleeding source. Poor colonoscopy prep. Recommend CTA if supiscion for GIB persists. PDMP PDMP Reviewed: Not Reviewed Attestations 2 Medical Necessity Statement*: NA Coding Level of Care Code 64515 Diagnoses GI bleed K92.2
--- NOTE | 2024-06-28 15:12 | PM.PN ---
Subjective Subjective: Patient was seen this morning, communicated with her using senior mechanical designer, she does complain of lower abdominal cramping, no blood or black stools, Vitals/I&O/Wt Last Vital Signs Temp 98.5 F 06/28/24 15:06 Pulse 82 06/28/24 15:06 Resp 16 06/28/24 15:06 BP 114/68 06/28/24 15:06 Pulse Ox 100 06/28/24 15:06 O2 Del Method Room Air 06/28/24 14:55 O2 Flow Rate 6 06/28/24 14:36 06/28/24 06/28/24 06/28/24 06:59 14:59 22:59 Intake Total 1000 / 1240 110 / 110 Balance 1000 / 1240 110 / 110 Weight last 48 hrs Weight 108.363 kg Weight 105.143 kg Physical Exam Const: COMMON NORMALS: no acute distress and patient oriented x3 Resp: COMMON NORMALS: normal respiratory effort, No retractions and No use of accessory muscles AUSCULTATION: crackles and wheezes Cardio: COMMON NORMALS: regular rate, regular rhythm, S1 normal heart sound present and S2 normal heart sound present RATE: regular rate RHYTHM: regular rhythm HEART SOUNDS: S1 normal heart sound present and S2 normal heart sound present GI: COMMON NORMALS: Normal to inspection, nondistended, normoactive bowel sounds present and non-tender Extremity: COMMON NORMALS: no pedal edema Neuro: COMMON NORMALS: patient oriented x3 Psych: COMMON NORMALS: mental status grossly normal Data 06/28/24 04:40 06/28/24 04:40 Micro: Microbiology 06/27/24 21:15 Blood Culture - Preliminary Blood SPECIMEN COLLECTED 06/27/24 21:11 Blood Culture - Preliminary Blood SPECIMEN COLLECTED A&P Assessment and plan (1) Sensorineural deafness: (2) GI bleed: Plan GI bleed -Upper versus lower GI bleed - Plan - Monitor hemodynamics closely - IV fluids -Protonix, Carafate - Hemoglobin 6.3, 14, TIBC 129, ferritin 78, transfuse 1 unit PRBC - General Surgery consulted, will undergo EGD and colonoscopy today - Full code - SCDs for DVT prophylaxis Elevated ESR and CRP? - Chest x-ray, shows evidence of pneumonia, start Rocephin, Zithromycin PDMP PDMP Reviewed: Not Reviewed Attestations Medical Necessity Statement*: Patient requires hospitalization for GI bleed, pneumonia Diagnoses Sensorineural deafness H90.5 GI bleed K92.2
[2024-06-28] MEDS: AZITHROMYCIN ADD-Vantage 500 MG in 0.9% NaCl ADD-Vantage 250 ML 250 MG IV (15:25)
[2024-06-28] MEDS: cefTRIAXone 1,000 mg SDV 1000 MG IVP (15:30)
--- NOTE | 2024-06-28 15:32 | ANE.PACU2 ---
Inpatient post-anesthesia follow up: Airway intact: Yes Vital signs: Temperature 98.5 F Pulse Rate 82 Respiratory Rate 16 Blood Pressure 114/68 Pulse Oximetry 100 Oxygen Delivery Me thod Room Air Oxygen Flow Rate 6 Fraction of Inspir ed Oxygen Hydration adequate: Yes Nausea and vomiting: No Pain level: 1 Mental status: Baseline
[2024-06-28 22:36] LABS: Basophils # 0.1 10^3/uL (0.0-0.1); Basophils % 0.9 %; Eosinophils # 0.2 10^3/uL (0.0-0.8); Eosinophils % 2.8 %; Hematocrit 26.2 % (36-47); Lymphocytes # 1.8 10^3/uL (0.8-4.8); Lymphocytes % 25.8 %; Mean Corpuscular HGB Conc 29.8 g/dL (30-55); Mean Corpuscular Hemoglobin 25.8 pg (27-33); Mean Corpuscular Volume 86.8 fl (85-98); Mean Platelet Volume 8.9 fL (7.4-10.4); Monocytes # 0.6 10^3/uL (0.2-0.9); Monocytes % 8.5 %; Neutrophils # 4.13 10^3/uL (1.8-7.7); Neutrophils % 60.5 %; Nucleated Red Blood Cells % 0.6 %; Platelet Count 426 10^3/cmm (157-399); Red Blood Count 3.02 10^6/uL (3.85-5.65); Red Cell Distribution Width 15.9 % (12.1-15.1); White Blood Count 6.82 10^3/uL (3.29-11.43)
[2024-06-29] VITALS (7 sets, daily range): BP systolic 99–122; BP diastolic 51–74; PULSE 65–90; RESP 17–19; TEMP 36.5–36.8; O2SAT 93–99
[2024-06-29] MEDS: sucralfate 1 gm/10 mL Oral Liq UDC PO ×4 (01:35→20:14)
[2024-06-29 05:39] LABS: INR 1.09 (0.8-1.2)
[2024-06-29 05:40] LABS: Partial Thromboplastin Time 30.2 SECONDS (23.9-36.7)
[2024-06-29 05:51] LABS: Alanine Aminotransferase 9 U/L (0-33); Albumin Level 2.4 g/dL (3.5-5.2); Alkaline Phosphatase 71 U/L (35-105); Anion Gap 13.1 (5-19); Aspartate Amino Transferase 11 U/L (0-32); Blood Urea Nitrogen 7 mg/dL (6-20); Calcium 7.7 mg/dL (8.5-10.5); Carbon Dioxide 18 mmol/L (22-29); Chloride 110 mmol/L (98-107); Creatinine Clr Calc Pharmacy 121.2366; Globulin 2.7 g/dL (1.3-4.6); Glomerular Filtration Rate 102.3 mL/min (90-130); Glucose 89 mg/dL (65-115); Osmolality Calculated 283 mOsm/kg (285-295); Potassium 3.1 mmol/L (3.5-5.1); Sodium 138 mmol/L (136-145); Total Bilirubin 0.3 mg/dL (0.15-1.2); Total Protein 5.1 g/dL (6.6-8.7)
[2024-06-29 06:08] LABS: Basophils # 0.1 10^3/uL (0.0-0.1); Eosinophils # 0.3 10^3/uL (0.0-0.8); Eosinophils % 4.5 %; Hematocrit 25.8 % (36-47); Lymphocytes # 2.3 10^3/uL (0.8-4.8); Lymphocytes % 39.6 %; Mean Corpuscular HGB Conc 30.6 g/dL (30-55); Mean Corpuscular Hemoglobin 25.5 pg (27-33); Mean Corpuscular Volume 83.2 fl (85-98); Mean Platelet Volume 8.9 fL (7.4-10.4); Monocytes # 0.5 10^3/uL (0.2-0.9); Monocytes % 8.1 %; Neutrophils # 2.58 10^3/uL (1.8-7.7); Neutrophils % 44.7 %; Nucleated Red Blood Cells % 0.5 %; Platelet Count 429 10^3/cmm (157-399); Red Cell Distribution Width 15.9 % (12.1-15.1); White Blood Count 5.78 10^3/uL (3.29-11.43)
[2024-06-29] MEDS: acetaminophen 325 mg Tablet 650 MG PO ×2 (06:09→23:44)
[2024-06-29] MEDS: sodium chloride 0.9% 1,000 ML 125 ML IV ×2 (06:10→16:24)
[2024-06-29] MEDS: pantoprazole 40 mg SDV IVP ×2 (09:03→20:14)
--- NOTE | 2024-06-29 09:51 | PC.SOCIAL ---
IMM UPDATED IMM dated and initialed, copy given to patient and copy put in chart.
--- NOTE | 2024-06-29 10:03 | P.PN_ITS ---
Subjective 2 Subjective: No hematochezia, no melena Vitals/I&O/Wt Last Vital Signs Temp 98 F 06/29/24 07:55 Pulse 83 06/29/24 07:55 Resp 17 06/29/24 07:55 BP 110/61 06/29/24 07:55 Pulse Ox 97 06/29/24 07:55 O2 Del Method Room Air 06/29/24 07:55 O2 Flow Rate 6 06/28/24 14:36 06/28/24 06/29/24 06/29/24 22:59 06:59 14:59 Intake Total 1937.583 / 7.583 966.667 / 3014.250 360 / 360 Balance 1937.583 / 2047.583 966.667 / 3014.250 360 / 360 Weight last 48 hrs Weight 238 lb 6 oz Weight 238 lb 14.4 oz Weight 231 lb 12.8 oz Physical Exam 2 Narrative: Chest: Unlabored breathing room air. No lymphadenopathy. Heart: Regular rate and rhythm. Abdomen: Soft, nontender, nondistended. No masses or lymphadenopathy. Data 06/29/24 05:47 06/29/24 05:15 Micro: Microbiology 06/27/24 21:15 Blood Culture - Preliminary Blood NEGATIVE TO DATE 06/27/24 21:11 Blood Culture - Preliminary Blood NEGATIVE TO DATE A&P Assessment and plan (1) GI bleed: Plan 59-year-old female status post EGD and colonoscopy. No evidence of GI bleed. PDMP PDMP Reviewed: Not Reviewed Attestations 2 Medical Necessity Statement*: N/A Coding Level of Care Code 60342 Diagnoses GI bleed K92.2
--- NOTE | 2024-06-29 10:23 | CT_ITS ---
WS: [id number] CT ABDOMEN PELVIS TECHNIQUE: Contrast-enhanced CT of the abdomen and pelvis with coronal and sagittal reformatted images. CLINICAL INFORMATION: RLQ appendicitis COMPARISON: None. DLP: 1125.[address] scans at [facility] use at least one of these dose optimization techniques: automated exposure control; mA and/or kV adjustment per patient size (includes targeted exams where dose is matched to clinical indication); or iterative reconstruction. FINDINGS: Slight inflammatory stranding and edema about the LEFT splenic colonic flexure with a diverticulum in this area suspicious for acute diverticulitis or colitis. This is best appreciated on the coronal imaging. Fatty liver. Normal portal vein and splenic vein. Normal spleen. Normal GE junction. Mild gastric wall thickening with gastritis and duodenitis. Slight induration about the pancreatic head. Recommend correlation with peripancreatic enzymes. Some motion artifact in this area. Portal vein and splenic vein are patent. Small splenule. Adrenal glands are normal. No hydronephrosis in either kidney. Normal caliber abdominal aorta. Celiac and SMA are patent. No evidence of acute appendicitis. Normal appendix in the RIGHT lower quadrant. CT/CT abdomen pelvis w con* [id number] IMPRESSION: 1. No evidence of acute appendicitis. 2. Slight induration about the splenic flexure with a diverticulum in this are a suspicious for acute diverticulitis or colitis best seen on the coronal imagi ng. 3. Slight induration about the pancreatic head. Recommend correlation with cruz creatic enzymes. Some of this may be due to motion artifact. 4. Evidence of gastritis and duodenitis.
--- NOTE | 2024-06-29 12:13 | P.PN_ITS ---
Subjective 2 Subjective: Patient was seen this morning, she is alert oriented x 2, she is following commands, used commercial interior designer she continues to feel unwell this morning, reports right lower quadrant abdominal pain, reports increase in the number of bowel movements, but does sound that the bowel movements are more brown Vitals/I&O/Wt Last Vital Signs Temp 97.9 F 06/29/24 11:59 Pulse 84 06/29/24 11:59 Resp 17 06/29/24 11:59 BP 100/60 06/29/24 11:59 Pulse Ox 99 06/29/24 11:59 O2 Del Method Room Air 06/29/24 11:59 O2 Flow Rate 6 06/28/24 14:36 06/28/24 06/29/24 06/29/24 22:59 06:59 14:59 Intake Total 1937.583 / 2047.583 966.667 / 3014.250 360 / 360 Balance 1937.583 / 2047.583 966.667 / 3014.250 360 / 360 Weight last 48 hrs Weight 108.125 kg Weight 108.363 kg Weight 105.143 kg Physical Exam 2 Const: COMMON NORMALS: no acute distress and patient oriented x3 Resp: COMMON NORMALS: normal respiratory effort, No retractions, No use of accessory muscles and clear to auscultation bilaterally AUSCULTATION: clear to auscultation bilaterally Cardio: COMMON NORMALS: regular rate, regular rhythm, S1 normal heart sound present and S2 normal heart sound present RATE: regular rate RHYTHM: r egular rhythm HEART SOUNDS: S1 normal heart sound present and S2 normal heart sound present GI: OTHER: Abdomen soft, slightly distended, no guarding, no rebound, no rigidity, has right lower quadrant tenderness to palpation, Extremity: COMMON NORMALS: no pedal edema Neuro: COMMON NORMALS: patient oriented x3 Psych: COMMON NORMALS: mental status grossly normal Data 06/29/24 05:47 06/29/24 05:15 Micro: Microbiology 06/27/24 21:15 Blood Culture - Preliminary Blood NEGATIVE TO DATE 06/27/24 21:11 Blood Culture - Preliminary Blood NEGATIVE TO DATE A&P Assessment and plan (1) Sensorineural deafness: (2) GI bleed: Plan GI bleed -Upper versus lower GI bleed - Plan - Monitor hemodynamics closely - IV fluids -Protonix, Carafate - Status post 1 unit PRBC, receiving IV iron - General Surgery consulted, status post EGD no acute abnormality and colonoscopy no acute source of bleeding found - Full code - SCDs for DVT prophylaxis Elevated ESR and CRP? Complaints of right lower quadrant pain - Chest x-ray, shows evidence of pneumonia, no cough, currently on room air has been managed on antibiotics - With right lower quadrant abdominal pain complaints repeat CRP, follow blood cultures, CT scan abdomen pelvis, will expand antibiotic coverage to Zosyn Right lower quadrant abdominal pain, serial abdominal exams, CT scan abdomen pelvis transition to clear liquid diet, add Zosyn monitor hemoglobin PDMP PDMP Reviewed: Not Reviewed Attestations 2 Medical Necessity Statement*: Patient requires hospitalization for persistent lower abdominal pain Diagnoses Sensorineural deafness H90.5 GI bleed K92.2
[2024-06-29] MEDS: iron sucrose 200 MG in sodium chloride 0.9% (100 ml) 100 ML 220 MG IV (12:58)
[2024-06-29 13:45] LABS: Basophils # 0.1 10^3/uL (0.0-0.1); Basophils % 0.8 %; Eosinophils # 0.3 10^3/uL (0.0-0.8); Eosinophils % 4.5 %; Hematocrit 25.3 % (36-47); Lymphocytes # 2.2 10^3/uL (0.8-4.8); Lymphocytes % 35.1 %; Mean Corpuscular HGB Conc 29.6 g/dL (30-55); Mean Corpuscular Hemoglobin 25.7 pg (27-33); Mean Corpuscular Volume 86.6 fl (85-98); Mean Platelet Volume 8.3 fL (7.4-10.4); Monocytes # 0.5 10^3/uL (0.2-0.9); Monocytes % 7.8 %; Neutrophils # 3.09 10^3/uL (1.8-7.7); Neutrophils % 49.9 %; Nucleated Red Blood Cells % 0.3 %; Platelet Count 421 10^3/cmm (157-399); Red Blood Count 2.92 10^6/uL (3.85-5.65); Red Cell Distribution Width 15.9 % (12.1-15.1); White Blood Count 6.19 10^3/uL (3.29-11.43)
[2024-06-29] MEDS: lidocaine 1% 5 ML in potassium chloride premix 100 ML 52.5 ML IV (13:57)
[2024-06-29 14:08] LABS: C Reactive Protein 62.8 mg/L (0.0-4.9); Lactate (Lactic Acid level) 1.4 mmol/L (0.5-2.2)
[2024-06-29] MEDS: piperacillin-tazobactam 3.375 GM in sodium chloride 0.9% (plus) 50 ML IV ×2 (16:24→23:44)
[2024-06-29] MEDS: memantine 5 mg tablet 10 MG PO (18:22)
--- NOTE | 2024-06-29 18:52 | PC.NURSE ---
Lab notified RN that a lot of stool is needed for stool sample. Notified patient care nurse, Hans.
[2024-06-29] MEDS: oxybutynin chloride XL 5 MG TABLET PO (20:14)
[2024-06-30] VITALS: BP 98/55; PULSE 93; RESP 18; TEMP 36.9; O2SAT 97
[2024-06-30] MEDS: sucralfate 1 gm/10 mL Oral Liq UDC PO ×4 (03:42→20:07)
[2024-06-30] MEDS: sodium chloride 0.9% 1,000 ML 125 ML IV (03:42)
[2024-06-30 04:00] VITALS: BP 102/64; PULSE 78; RESP 17; TEMP 36.4; O2SAT 96
[2024-06-30 07:27] VITALS: BP 113/57; PULSE 78; RESP 17; TEMP 36.6; O2SAT 98
--- NOTE | 2024-06-30 08:35 | P.PN_ITS ---
Subjective 2 Subjective: No melena/hematochezia Vitals/I&O/Wt Last Vital Signs Temp 97.8 F 06/30/24 07:27 Pulse 78 06/30/24 07:27 Resp 17 06/30/24 07:27 BP 113/57 06/30/24 07:27 Pulse Ox 98 06/30/24 07:27 O2 Del Method Room Air 06/30/24 07:27 O2 Flow Rate 6 06/28/24 14:36 06/29/24 06/30/24 06/30/24 22:59 06:59 14:59 Intake Total 1075 / 3025 1050 / 4075 Output Total 300 / 300 Balance 1075 / 3025 750 / 3775 Weight last 48 hrs Weight 248 lb 4.8 oz Weight 238 lb 6 oz Physical Exam 2 Narrative: RRR Unlabored breathing RA Abdomen soft, nt, nd Data 06/29/24 13:29 06/29/24 05:15 A&P Assessment and plan (1) GI bleed: Plan 59 yo female with anemia. No bleeding on colonoscopy/EGD. No clinical signs of GIB. PDMP PDMP Reviewed: Not Reviewed Attestations 2 Medical Necessity Statement*: NA Coding Level of Care Code 28937 Diagnoses GI bleed K92.2
[2024-06-30] MEDS: pantoprazole 40 mg SDV IVP ×2 (09:52→20:07)
[2024-06-30] MEDS: piperacillin-tazobactam 3.375 GM in sodium chloride 0.9% (plus) 50 ML IV ×2 (09:52→17:59)
[2024-06-30] MEDS: topiramate 25 mg Tablet 50 MG PO (09:53)
[2024-06-30] MEDS: memantine 5 mg tablet 10 MG PO ×2 (09:53→17:59)
[2024-06-30] MEDS: levothyroxine 88 mcg Tablet PO (09:53)
[2024-06-30] MEDS: montelukast sodium 10 mg Tablet PO (09:53)
--- NOTE | 2024-06-30 11:01 | P.PN_ITS ---
Subjective 2 Subjective: Patient was seen this morning, she continues to complain of lower abdominal, her morning CBC is not back, she does report diarrhea, does report lightheadedness upon ambulation, reports poor appetite, feeling fatigue, malaise, Vitals/I&O/Wt Last Vital Signs Temp 97.8 F 06/30/24 07:27 Pulse 78 06/30/24 07:27 Resp 17 06/30/24 07:27 BP 113/57 06/30/24 07:27 Pulse Ox 98 06/30/24 07:27 O2 Del Method Room Air 06/30/24 07:27 O2 Flow Rate 6 06/28/24 14:36 06/29/24 06/30/24 06/30/24 22:59 06:59 14:59 Intake Total 1075 / 3025 1050 / 4075 847.083 / 847.083 Output Total 300 / 300 Balance 1075 / 3025 750 / 3775 847.083 / 847.083 Weight last 48 hrs Weight 112.627 kg Weight 108.125 kg Physical Exam 2 Const: COMMON NORMALS: no acute distress and patient oriented x3 Resp: COMMON NORMALS: normal respiratory effort, No retractions, No use of accessory muscles and clear to auscultation bilaterally AUSCULTATION: clear to auscultation bilaterally Cardio: COMMON NORMALS: regular rate, regular rhythm, S1 normal heart sound present and S2 normal heart sound present RATE: regular rate RHYTHM: r egular rhythm HEART SOUNDS: S1 normal heart sound present and S2 normal heart sound present GI: COMMON NORMALS: Normal to inspection, nondistended, normoactive bowel sounds present and non-tender Extremity: COMMON NORMALS: no pedal edema Neuro: COMMON NORMALS: patient oriented x3 Psych: COMMON NORMALS: mental status grossly normal Data 06/29/24 13:29 06/29/24 05:15 A&P Assessment and plan (1) Sensorineural deafness: (2) GI bleed: (3) Diverticulitis: Plan GI bleed -Upper versus lower GI bleed, EGD and colonoscopy no acute source of bleeding found CT/CT abdomen pelvis w con* [id number] IMPRESSION: 1. No evidence of acute appendicitis. 2. Slight induration about the splenic flexure with a diverticulum in this area suspicious for acute diverticulitis or colitis best seen on the coronal imaging. 3. Slight induration about the pancreatic head. Recommend correlation with pancreatic enzymes. Some of this may be due to motion artifact. 4. Evidence of gastritis and duodenitis. -Due to persistent abdominal pain CT scan abdomen pelvis was ordered, evidence of diverticulitis as above versus colitis versus duodenitis - Plan - Monitor hemodynamics closely - IV fluids -Protonix, Carafate - Status post 1 unit PRBC, receiving IV iron - General Surgery consulted, status post EGD no acute abnormality and colonoscopy no acute source of bleeding found -Currently on Zosyn -Clear liquids - Full code - SCDs for DVT prophylaxis Anemia, hemoglobin 7.5, status post 1 unit PRBC, monitor hemoglobin today, Elevated ESR and CRP? Likely secondary to diverticulitis/colitis/duodenitis - Will continue antibiotics, as above Diverticulitis, with continued pain, IV fluids, clear liquids, IV antibiotics, PDMP PDMP Reviewed: Not Reviewed Attestations 2 Medical Necessity Statement*: Patient requires hospitalization for diverticulitis, anemia Diagnoses Sensorineural deafness H90.5 GI bleed K92.2 Diverticulitis K57.92
[2024-06-30] MEDS: sodium chloride 0.9% 1,000 ML 75 ML IV ×2 (12:15→18:04)
[2024-06-30 16:00] VITALS: BP 106/72; PULSE 78; RESP 16; TEMP 36.9; O2SAT 98
[2024-06-30 20:00] VITALS: BP 117/79; PULSE 77; RESP 17; TEMP 36.9; O2SAT 98
[2024-06-30] MEDS: oxybutynin chloride XL 5 MG TABLET PO (20:07)
[2024-07-01] VITALS: BP 112/73; PULSE 78; RESP 18; TEMP 36.8; O2SAT 97
[2024-07-01] MEDS: piperacillin-tazobactam 3.375 GM in sodium chloride 0.9% (plus) 50 ML IV ×2 (02:42→09:52)
[2024-07-01] MEDS: sucralfate 1 gm/10 mL Oral Liq UDC PO ×2 (02:42→08:33)
[2024-07-01 04:00] VITALS: BP 106/63; PULSE 76; RESP 17; TEMP 36.9; O2SAT 96
[2024-07-01 06:36] VITALS: PULSE 63
[2024-07-01 07:37] VITALS: BP 110/72; PULSE 74; RESP 18; TEMP 36.4; O2SAT 96
[2024-07-01] MEDS: montelukast sodium 10 mg Tablet PO (08:33)
[2024-07-01] MEDS: topiramate 25 mg Tablet 50 MG PO (08:33)
[2024-07-01] MEDS: levothyroxine 88 mcg Tablet PO (08:33)
[2024-07-01] MEDS: memantine 5 mg tablet 10 MG PO (08:33)
[2024-07-01] MEDS: pantoprazole 40 mg SDV IVP (08:34)
[2024-07-01 10:29] LABS: Basophils # 0.1 10^3/uL (0.0-0.1); Basophils % 1.1 %; Eosinophils # 0.3 10^3/uL (0.0-0.8); Eosinophils % 3.5 %; Hematocrit 28.8 % (36-47); Lymphocytes # 1.6 10^3/uL (0.8-4.8); Lymphocytes % 21.6 %; Mean Corpuscular HGB Conc 28.8 g/dL (30-55); Mean Corpuscular Hemoglobin 25.9 pg (27-33); Mean Corpuscular Volume 89.7 fl (85-98); Mean Platelet Volume 8.4 fL (7.4-10.4); Monocytes # 0.5 10^3/uL (0.2-0.9); Monocytes % 6.2 %; Neutrophils # 4.95 10^3/uL (1.8-7.7); Neutrophils % 66.5 %; Nucleated Red Blood Cells % 0.3 %; Platelet Count 414 10^3/cmm (157-399); Red Blood Count 3.21 10^6/uL (3.85-5.65); Red Cell Distribution Width 16.7 % (12.1-15.1); White Blood Count 7.44 10^3/uL (3.29-11.43)
[2024-07-01 10:31] LABS: Erythrocyte Sedimentation Rate 17 mm/hr (0-15)
[2024-07-01 10:45] LABS: Blood Urea Nitrogen 3 mg/dL (6-20); C Reactive Protein 35.5 mg/L (0.0-4.9); Carbon Dioxide 20 mmol/L (22-29); Chloride 109 mmol/L (98-107); Creatinine Clr Calc Pharmacy 106.5508; Glomerular Filtration Rate 85.6 mL/min (90-130); Glucose 103 mg/dL (65-115); Osmolality Calculated 287 mOsm/kg (285-295); Sodium 140 mmol/L (136-145)
[2024-07-01 10:48] LABS: Anion Gap 14.6 (5-19); Potassium 3.6 mmol/L (3.5-5.1)
--- NOTE | 2024-07-01 11:05 | PM.DCS ---
Discharge Providers Date of Admission: 06/27/24 16:22 Date of Discharge: July 01, 2024 Attending Provider at Admission: Yonathan Nuñez Attending Provider at Discharge: Charbel Victoria MD Primary Care Provider: Wilda Sloan MD Diagnoses at Discharge Discharge Diagnosis (1) Sensorineural deafness: Status: Acute (2) GI bleed: Status: Acute (3) Diverticulitis: Status: Acute Reason for Visit Reason for Visit: GI bleed Hospital Course Hospital Course Poppy Villeda is a 59 year old female who is deaf, history of hypertension, hypothyroidism, migraines, who presents [facility] for bloody stools. Patient presented to [facility] for GI bleed, requiring 1 unit PRBC, no hemodynamic compromise, no bloody black stool with evidence of iron deficiency anemia, requiring 3 doses of IV Venofer, overall no recurrent bloody black stools, underwent EGD/colonoscopy no acute source of bleeding found. However patient's did have poor colonoscopy prep, if she continues to have issues with bloody stools she might need more adequate prep in the near future. In addition her ESR is 17, if she does develop bloody stools, further anemia, she might be investigated for ulcerative colitis/Crohn's disease as an etiology, and it might be worthwhile giving her trial of steroids. Nonetheless her hemoglobin hemoglobin is stabilized, no current blood black stools, follow-up with primary care provider as outpatient, discharged with p.o. iron, follow-up with primary care provider to recheck hemoglobin in 24 to 48 hours Due to persistent abdominal pain, complaints of diarrhea, CT scan as below was ordered CT/CT abdomen pelvis w con* [id number] IMPRESSION: 1. No evidence of acute appendicitis. 2. Slight induration about the splenic flexure with a diverticulum in this area suspicious for acute diverticulitis or colitis best seen on the coronal imaging. 3. Slight induration about the pancreatic head. Recommend correlation with pancreatic enzymes. Some of this may be due to motion artifact. - Overall her abdominal pain and symptomatology has improved - She was managed with IV antibiotics, IV fluids, for concerns for acute diverticulitis - Will be discharged on p.o. antibiotics, instructions to drink plenty electrolyte balanced fluids, GI soft diet, with close follow-up with primary care and GI as outpatient Physical Exam Const: COMMON NORMALS: no acute distress and patient oriented x3 Resp: COMMON NORMALS: normal respiratory effort, No retractions, No use of accessory muscles and clear to auscultation bilaterally AUSCULTATION: clear to auscultation bilaterally Cardio: COMMON NORMALS: regular rate, regular rhythm, S1 normal heart sound present and S2 normal heart sound present RATE: regular rate RHYTHM: regular rhythm HEART SOUNDS: S1 normal heart sound present and S2 normal heart sound present GI: COMMON NORMALS: Normal to inspection, nondistended, normoactive bowel sounds present and non-tender Extremity: COMMON NORMALS: no pedal edema Neuro: COMMON NORMALS: patient oriented x3 Psych: COMMON NORMALS: mental status grossly normal Discharge Data Studies Completed and Pending Completed Studies During Hospitalization Category Date Time Status CT abdomen pelvis w con* [id number] Routine Cat Scan 06/29/24 10:23 Completed XR chest 1V portable [id number] Routine Exams 06/27/24 18:11 Completed Pending at discharge Category Date Time Status Blood Culture Routine Lab 06/27/24 21:15 Results C.Diff PCR (Lab) Routine Lab 06/29/24 12:14 Ordered C.Diff PCR (Lab) Routine Lab 07/01/24 10:10 Uncollected CDIFF [C.Diff PCR (Lab)] Routine Lab 07/01/24 10:56 Uncollected Immunochemical Fecal OCB Routine Lab 06/29/24 12:14 Ordered Lactoferrin Routine Lab 06/29/24 12:14 Ordered OVA and Parasites, Conc and PE Routine Lab 06/29/24 12:14 Ordered Salmonella / Shigella / Campy Routine Lab 06/29/24 12:14 Ordered Urinalysis Routine Lab 06/27/24 18:11 Uncollected Urinalysis Stat Lab 06/27/24 18:11 Uncollected Radiology Impressions Chest X-Ray 06/27/24 18:11 IMPRESSION: 1. Mild enlarged cardiac silhouette. 2. Possible central pulmonary venous congestion or minimal perihilar infiltrates. Abdomen/Pelvis CT 06/29/24 10:23 IMPRESSION: 1. No evidence of acute appendicitis. 2. Slight induration about the splenic flexure with a diverticulum in this area suspicious for acute diverticulitis or colitis best seen on the coronal imaging. 3. Slight induration about the pancreatic head. Recommend correlation with pancreatic enzymes. Some of this may be due to motion artifact. 4. Evidence of gastritis and duodenitis. Laboratory Results WBC 7.44 10^3/uL (3.29-11.43) 07/01/24 10:23 Corrected WBC Cancelled 07/01/24 09:54 RBC 3.21 10^6/uL (3.85-5.65) L 07/01/24 10:23 Hgb 8.30 g/dL (11.27-16.99) L 07/01/24 10:23 Hct 28.8 % (36-47) L 07/01/24 10:23 MCV 89.7 fl (85-98) 07/01/24 10:23 MCH 25.9 pg (27-33) L 07/01/24 10:23 MCHC 28.8 g/dL (30-55) L 07/01/24 10:23 RDW 16.7 % (12.1-15.1) H 07/01/24 10:23 Plt Count 414 10^3/cmm (157-399) H 07/01/24 10:23 MPV 8.4 fL (7.4-10.4) 07/01/24 10:23 Gran % Cancelled 07/01/24 09:54 Neut % (Auto) 66.5 % 07/01/24 10:23 Lymph % (Auto) 21.6 % 07/01/24 10:23 [place] % (Auto) 6.2 % 07/01/24 10:23 Eos % (Auto) 3.5 % 07/01/24 10:23 Baso % (Auto) 1.1 % 07/01/24 10:23 Neut # (Auto) 4.95 10^3/uL (1.8-7.7) 07/01/24 10:23 Lymph # (Auto) 1.6 10^3/uL (0.8-4.8) 07/01/24 10:23 [place] # (Auto) 0.5 10^3/uL (0.2-0.9) 07/01/24 10:23 Eos # (Auto) 0.3 10^3/uL (0.0-0.8) 07/01/24 10:23 Baso # (Auto) 0.1 10^3/uL (0.0-0.1) 07/01/24 10:23 Absolute Gran (auto) Cancelled 07/01/24 09:54 Nucleated RBC % (auto) 0.3 % 07/01/24 10:23 Total Counted 100 (0-100) 06/27/24 17:42 Atypical Lymphs % 0.0 % (0-5) 06/27/24 17:42 Absolute Neutrophils 4.4 10^3/cmm (1.4-6.5) 06/27/24 17:42 Segmented Neutrophils 48 % 06/27/24 17:42 Band Neutrophils 11.0 % 06/27/24 17:42 Absolute Lymphocytes 2.2 10^3/cmm (1.2-3.4) 06/27/24 17:42 Lymphocytes (Manual) 29 % 06/27/24 17:42 Monocytes (Manual) 2.0 % 06/27/24 17:42 Absolute Monocytes 0.1 10^3/cmm (0.1-0.6) 06/27/24 17:42 Eosinophils (Manual) 4 % 06/27/24 17:42 Absolute Eosinophils 0.3 10^3/cmm (0.0-0.7) 06/27/24 17:42 Basophils (Manual) 0.0 % 06/27/24 17:42 Absolute Basophils 0.0 10^3/cmm (0.0-0.2) 06/27/24 17:42 Metamyelocytes 2.0 % 06/27/24 17:42 Myelocytes 1.0 % 06/27/24 17:42 Promyelocytes 1.0 % 06/27/24 17:42 Nucleated RBCs 2.0 /100WBC (0-1) H 06/27/24 17:42 Nucleated RBCs # 0.0 /100WBC 07/01/24 10:23 Platelet Estimate Increased (Normal) H 06/27/24 17:42 Giant Platelets Trace 06/27/24 17:42 ESR 17 mm/hr (0-15) H 07/01/24 10:23 PT 14.80 SECONDS (12.1-14.9) 06/29/24 05:15 INR 1.09 (0.8-1.2) 06/29/24 05:15 APTT 30.2 SECONDS (23.9-36.7) 06/29/24 05:15 Sodium 140 mmol/L (136-145) 07/01/24 10:23 Potassium 3.6 mmol/L (3.5-5.1) 07/01/24 10:23 Chloride 109 mmol/L (98-107) H 07/01/24 10:23 Carbon Dioxide 20 mmol/L (22-29) L 07/01/24 10:23 Anion Gap 14.6 (5-19) 07/01/24 10:23 BUN 3 mg/dL (6-20) L 07/01/24 10:23 Creatinine 0.7 mg/dL (0.5-0.9) 07/01/24 10:23 GFR Calculation 85.6 mL/min (90-130) L 07/01/24 10:23 Glucose 103 mg/dL (65-115) 07/01/24 10:23 Calculated Osmolality 287 mOsm/kg (285-295) 07/01/24 10:23 Lactate 1.4 mmol/L (0.5-2.2) 06/29/24 13:29 Calcium 8.0 mg/dL (8.5-10.5) L 07/01/24 10:23 Iron 14 ug/dL (37-145) L 06/27/24 21:11 TIBC 129 mcg/dl 06/27/24 21:11 % Saturation 10.8 % (20-50) L 06/27/24 21:11 Unsat Iron Binding 115 ug/dL (112-347) 06/27/24 21:11 Ferritin 78 ng/mL (15-150) 06/27/24 21:11 Total Bilirubin 0.3 mg/dL (0.15-1.2) 06/29/24 05:15 AST 11 U/L (0-32) 06/29/24 05:15 ALT 9 U/L (0-33) 06/29/24 05:15 Alkaline Phosphatase 71 U/L (35-105) 06/29/24 05:15 C-Reactive Protein 35.5 mg/L (0.0-4.9) H 07/01/24 10:23 Total Protein 5.1 g/dL (6.6-8.7) L 06/29/24 05:15 Albumin 2.4 g/dL (3.5-5.2) L 06/29/24 05:15 Globulin 2.7 g/dL (1.3-4.6) 06/29/24 05:15 Procalcitonin 0.10 ng/mL (0-0.5) 06/27/24 21:11 TSH 0.60 uIU/mL (0.27-4.20) 06/27/24 21:11 Blood Type A Positive 06/28/24 11:44 Rho(D) Type Rh positive 06/28/24 11:44 Antibody Screen Negative 06/28/24 11:44 Crossmatch See Detail 06/28/24 11:44 Vitals Last Vital Signs Temp 97.5 F L 07/01/24 07:37 Pulse 74 07/01/24 07:37 Resp 18 07/01/24 07:37 BP 110/72 07/01/24 07:37 Pulse Ox 96 07/01/24 07:37 O2 Del Method Room Air 07/01/24 07:37 O2 Flow Rate 6 06/28/24 14:36 Discharge Plan Discharge Patient Disposition: Home Condition: Stable Prescriptions: New ferrous sulfate 325 mg (65 mg iron) tablet 325 mg PO BID 30 Days Qty: 60 0RF amoxicillin-pot clavulanate 875-125 mg tablet 1 tab PO BID 10 Days Qty: 20 0RF Continued levothyroxine 88 mcg capsule 88 mcg PO QDAY montelukast 10 mg tablet 10 mg PO QDAY pantoprazole 40 mg tablet,delayed release (DR/EC) 40 mg PO QDAY Emgality Pen 120 mg/mL pen injector See Rx Instructions .ROUTE .COMPLEX Qty: 1 11RF Dose Instruction: INJECT 1 PEN UNDER THE SKIN ONCE MONTHLY. Rx Instructions: INJECT 1 PEN UNDER THE SKIN ONCE MONTHLY. topiramate 50 mg tablet See Rx Instructions .ROUTE .COMPLEX Qty: 90 3RF Dose Instruction: Take 1 tablet by mouth daily Rx Instructions: Take 1 tablet by mouth daily flaxseed oil 1,000 mg Capsule 1,000 mg PO DAILY Rx Instructions: administer with a meal albuterol sulfate 90 mcg/actuation HFA aerosol inhaler 2 puff INHALATION Q6H PRN (Reason: Shortness Of Breath) memantine 10 mg tablet 10 mg PO BID methocarbamol 500 mg tablet 500 - 1,000 mg PO BID PRN (Reason: Pain) fluconazole 200 mg tablet See Rx Instructions .ROUTE .COMPLEX Rx Instructions: TAKE 1 TABLET BY MOUTH EVERY 72 HOURS FOR 3 DOSES. REPEAT MONTHLY FOR 3 MONTHS. clobetasol 0.05 % cream See Rx Instructions .ROUTE .COMPLEX Rx Instructions: APPLY CREAM TOPICALLY TO AFFECTED AREA 4 TIMES DAILY FOR 1 WEEK THEN THREE TIMES DAILY FOR 1 WEEK THEN TWICE DAILY FOR 1 WEEK THEN ONCE DAILY FOR 1 WEEK. valacyclovir 500 mg tablet See Rx Instructions .ROUTE .COMPLEX Rx Instructions: TAKE 1 TABLET BY MOUTH TWICE DAILY FOR 3 DAYS (REPEAT NEEDED). baclofen 10 mg tablet 10 mg PO DAILY PRN (Reason: Pain) fluticasone propion-salmeterol 500-50 mcg/dose blister with device 1 inh INHALATION BID oxybutynin chloride 5 mg tablet extended release 24hr See Rx Instructions .ROUTE .COMPLEX Rx Instructions: TAKE 1 TABLET BY MOUTH ONCE DAILY AT BEDTIME (MAY INCREASE TO TWICE DAILY IN 2 WEEKS IF NEEDED). Held aspirin 81 mg Tablet,Delayed Release (/Ec) 81 mg PO DAILY Hold Instructions: Resume on 07/22/24. hold until you see primary care Discontinued meloxicam 15 mg tablet 15 mg PO QDAY Discharge Orders: Discharge Order (Routine); Ordered 07/01/24 Ordered By: Charbel Victoria Referrals: Frankie Kessler MD [Physician] - 2 weeks (We have notified your physician's clinic of the need for a follow-up appointment to be scheduled. If you have not heard from them within the next 2 business days, please call them directly. ) Evans Neff MD [Referring] - 1 month (We have faxed your information to Tawanda Hough's office in [place] for an appointment if you do not hear from them in 2 buis days give them a call at [phone].) Wilda Sloan MD [Primary Care Provider] - 07/10/24 9:30 am Discharge Diet: GI Soft Discharge Activity: Resume usual activity Patient Instructions: Iron Supplements (By mouth), Amoxicillin/Clavulanate Potassium (By mouth), Diverticulitis (GEN), GI Post Discharge Instructions w/ Anesthesia, Opioid Safety Activity Restrictions/Additional Instructions: - Please hydrate well drink plenty electrolyte balanced fluids - Adhere to a GI soft diet - For your diverticulitis, monitor for recurrent abdominal pain if so go to the emergency room - Take antibiotics for the next 10 days - Please take iron tablets -Please have your primary care provider recheck your hemoglobin in 48 hours - If you develop recurrent blood or black stools please go to the emergency room Discharge Attestations Time Spent in Discharge Care*: greater than 30 min Quality Metrics Clinical Quality Measures [ No reported AMI, CVA or VTE this stay] Coding Level of Care Code 68145 Total time (in minutes) for Discharge: 45 Diagnoses Sensorineural deafness H90.5 GI bleed K92.2 Diverticulitis K57.92
[2024-07-01 11:34] VITALS: BP 103/55; PULSE 83; RESP 16; TEMP 36.3; O2SAT 98
[2024-07-01 14:51] LABS: C.Diff PCR (Lab) NEGATIVE (Negative)
[2024-07-01 15:40] VITALS: BP 103/67; PULSE 78; O2SAT 98
== END 2024-07-01 15:42 | disposition home or self-care (01) | DRG 391 ==
PROVIDERS: Student in an Organized Health Care Education/Training Program; Admitting Provider Internal Medicine; PCP Family Medicine; Visit Provider Family Medicine
PROC: 0DJ08ZZ Inspection of Upper Intestinal Tract, Via Natural or Artificial Opening Endoscopic (ICD-10-PCS; principal; 2024-06-28 15:00)
PROC: 0DJD8ZZ Inspection of Lower Intestinal Tract, Via Natural or Artificial Opening Endoscopic (ICD-10-PCS; CPT 45330; 2024-06-28 15:00)
PROC: 0DJ08ZZ Inspection of Upper Intestinal Tract, Via Natural or Artificial Opening Endoscopic (ICD-10-PCS; 2024-06-28 15:00)
DX: K57.32 Diverticulitis of large intestine without perforation or abscess without bleeding (principal); R57.8 Other shock; H90.3 Sensorineural hearing loss, bilateral; I10 Essential (primary) hypertension; E03.9 Hypothyroidism, unspecified; G43.909 Migraine, unspecified, not intractable, without status migrainosus; Z79.899 Other long term (current) drug therapy; D64.9 Anemia, unspecified
CPT/HCPCS: 36415; 43235; 45378; 71045; 74177; 80048; 80053; 82728; 83540; 83550; 83605; 84145; 84443; 85007; 85025; 85610; 85651; 85730; 86140; 86850; 86900; 86920; 87040; 87493; 94664; J0456; J0696; J1756; J2270; J2371; J2470; J2543; J2704; J3480; J3490; J7030; J7050; J9999; P9016; P9045

== ENCOUNTER 2024-07-03 09:45 | Inpatient (IN) | payer MEDICARE, MEDICAID, SELFPAY ==
[2024-07-03] VITALS (37 sets, daily range): BP systolic 87–127; BP diastolic 58–83; PULSE 72–179; RESP 13–30; TEMP 36.1–37.2; O2SAT 94–100; BMI 40.1; BMI 42.7
[2024-07-03 10:35] LABS: Basophils # 0.1 10^3/uL (0.0-0.1); Basophils % 1.1 %; Eosinophils # 0.2 10^3/uL (0.0-0.8); Eosinophils % 2.3 %; Hematocrit 24.7 % (36-47); Lymphocytes # 1.5 10^3/uL (0.8-4.8); Lymphocytes % 22.2 %; Mean Corpuscular HGB Conc 29.1 g/dL (30-55); Mean Corpuscular Hemoglobin 25.7 pg (27-33); Mean Corpuscular Volume 88.2 fl (85-98); Mean Platelet Volume 8.2 fL (7.4-10.4); Monocytes # 0.4 10^3/uL (0.2-0.9); Neutrophils # 4.47 10^3/uL (1.8-7.7); Neutrophils % 67.5 %; Nucleated Red Blood Cells % 0 %; Platelet Count 396 10^3/cmm (157-399); Red Cell Distribution Width 18.5 % (12.1-15.1); White Blood Count 6.62 10^3/uL (3.29-11.43)
[2024-07-03 10:51] LABS: Alanine Aminotransferase 18 U/L (0-33); Albumin Level 2.7 g/dL (3.5-5.2); Alkaline Phosphatase 95 U/L (35-105); Anion Gap 15.3 (5-19); Aspartate Amino Transferase 25 U/L (0-32); Blood Urea Nitrogen 3 mg/dL (6-20); Calcium 7.8 mg/dL (8.5-10.5); Carbon Dioxide 20 mmol/L (22-29); Chloride 109 mmol/L (98-107); Creatinine Clr Calc Pharmacy 119.9718; Globulin 2.7 g/dL (1.3-4.6); Glomerular Filtration Rate 102.3 mL/min (90-130); Glucose 134 mg/dL (65-115); Osmolality Calculated 291 mOsm/kg (285-295); Potassium 3.3 mmol/L (3.5-5.1); Sodium 141 mmol/L (136-145); Total Bilirubin 0.3 mg/dL (0.15-1.2); Total Protein 5.4 g/dL (6.6-8.7)
--- NOTE | 2024-07-03 11:16 | W.ED.GIBLEED ---
HPI - GI Bleed General: Chief complaint: GI Bleed Stated complaint: bloody stools Time Seen by Provider: 07/03/24 09:59 History of Present Illness: 59-year-old female presents emergency room with complaint of bloody stools weakness. She was recently hospitalized for diverticulitis did have some bleeding at that time was discharged home after having received a unit of blood she still passing blood in the stool. Associated symptoms: Reports abdominal pain and nausea; Denies chills, fever(s) or rash Related Data Home Medications ?Medication ?Instructions ?Recorded ?Confirmed levothyroxine 88 mcg capsule 88 mcg PO QDAY 04/17/19 07/03/24 montelukast 10 mg tablet 10 mg PO QDAY 04/17/19 07/03/24 pantoprazole 40 mg tablet,delayed 40 mg PO QDAY 04/17/19 07/03/24 release albuterol sulfate 90 mcg/actuation 2 puff inhalation Q6H PRN 06/28/24 07/03/24 aerosol inhaler Shortness Of Breath aspirin 81 mg tablet,delayed 81 mg PO DAILY 06/28/24 07/03/24 release Held on 07/01/24. Instructions: Resume on 07/22/24. hold until you see primary care baclofen 10 mg tablet 10 mg PO DAILY PRN Pain 06/28/24 07/03/24 clobetasol 0.05 % topical cream See Rx Instructions .Route .COMPLEX 06/28/24 07/03/24 flaxseed oil 1,000 mg capsule 1,000 mg PO DAILY 06/28/24 07/03/24 fluconazole 200 mg tablet See Rx Instructions .Route .COMPLEX 06/28/24 07/03/24 fluticasone 500 mcg-salmeterol 50 1 inh inhalation BID PRN Shortness 06/28/24 07/03/24 mcg/dose blistr powdr for Of Breath inhalation memantine 10 mg tablet 10 mg PO BID 06/28/24 07/03/24 methocarbamol 500 mg tablet 500 - 1,000 mg PO BID PRN Pain 06/28/24 07/03/24 oxybutynin chloride 5 mg See Rx Instructions .Route .COMPLEX 06/28/24 07/03/24 tablet,extended release 24 hr valacyclovir 500 mg tablet See Rx Instructions .Route .COMPLEX 06/28/24 07/03/24 topiramate 50 mg tablet 50 mg PO DAILY 07/03/24 07/03/24 Previous Rx's ?Medication ?Instructions ?Recorded galcanezumab-gnlm 120 mg/mL See Rx Instructions .Route 05/08/24 subcutaneous pen injector .COMPLEX #1 mL (Emgality Pen) amoxicillin 875 mg-potassium 1 tab PO BID 10 days #20 tabs 07/01/24 clavulanate 125 mg tablet ferrous sulfate 325 mg (65 mg 325 mg PO BID 30 days #60 tabs 07/01/24 iron) tablet Allergies Allergy/AdvReac Type Severity Reaction Status Date / Time lansoprazole (From PREVACID Allergy Unknown UNKNOWN Verified 05/10/23 10:06 NapraPAC) naproxen (From PREVACID Allergy Unknown UNKNOWN Verified 05/10/23 10:06 NapraPAC) Sulfa (Sulfonamide Allergy Unknown UNKNOWN Verified 05/10/23 10:06 Antibiotics) sulfamethoxazole (From Allergy Unknown UNKNOWN Verified 05/10/23 10:06 Bactrim) trimethoprim (From Bactrim) Allergy Unknown UNKNOWN Verified 05/10/23 10:06 Review of Systems Const: Denies: fever(s) or chills Card: Denies: chest pain Resp: Denies: dyspnea GI: Reports: abdominal pain, nausea and hematochezia : Denies: dysuria, urinary frequency or urinary urgency Musc: Denies: neck pain or back pain Skin/Breast: Denies: rash PFSH ED PFSH: Medical History Sensorineural deafness Mute History of hypothyroidism Surgical History H/O: hysterectomy Family History Other CAD (coronary artery disease) Diabetes Hypertension Denies family history of Stroke Social History Smoking and tobacco/nicotine status: never used tobacco/nicotine Alcohol intake: never Substance/Drug Use: never Physical Exam Const: COMMON NORMALS: no acute distress GENERAL APPEARANCE: cooperative and comfortable ORIENTATION/CONSCIOUSNESS: Yes awake, Yes oriented to person, Yes oriented to place and Yes oriented to time HENMT: COMMON NORMALS: normocephalic, atraumatic and hearing grossly normal bilaterally HEAD & SCALP: normocephalic and atraumatic Resp: COMMON NORMALS: normal respiratory effort, No retractions, No use of accessory muscles and clear to auscultation bilaterally AUSCULTATION: clear to auscultation bilaterally Cardio: COMMON NORMALS: regular rate, regular rhythm and No murmurs present (Cardio) RATE: regular rate RHYTHM: regular rhythm GI: COMMON NORMALS: No hepatosplenomegaly present AUSCULTATION: Yes normoactive bowel sounds PALPATION: Yes Tenderness to palpation present (GI) (Left lower quadrant), No Guarding due to palpation present (GI) and Yes No hepatosplenomegaly present Extremity: COMMON NORMALS: normal to inspection, capillary refill normal, no clubbing, cyanosis or edema, no calf tenderness and no pedal edema Neuro: SENSORIUM/ORIENTATION: Yes oriented to person, Yes oriented to place and Yes oriented to time Skin: COMMON NORMALS: no rashes or lesions noted GENERAL SKIN EXAM: no rashes or lesions noted Course Vital Signs: Vital signs: Vital Signs Temperature 98.0 F 07/03/24 17:34 Pulse Rate 92 07/03/24 17:34 Respiratory Rate 16 07/03/24 17:34 Blood Pressure 102/82 07/03/24 17:34 Pulse Oximetry 100 07/03/24 17:34 Oxygen Delivery Me thod Room Air 07/03/24 15:04 MDM - GI Bleed Medical Decision Making CT shows what appears to be blood products in the left hemicolon extending down to the sigmoid colon patient passed more blood while she was here. Hemoglobin is 7 2 will transfuse a unit admit to the ICU discussed with hospitalist started on antibiotics cultures done lactate is not elevated. Will also consult surgery. Lab Data 07/03/24 10:22 07/03/24 10:22 Radiology Impressions Abdomen/Pelvis CT 07/03/24 11:17 IMPRESSION: 1. Long segment colon abnormality beginning just distal to the hepatic flexure into the proximal descending colon. Circumferential wall thickening with enhancement and pericolonic edema with heterogeneous increased products within the lumen consistent with blood. Findings have progressed since 06/29/2024. The most significant area of concern appears to be just proximal to the splenic fracture. An active site of bleeding is not identified. 2. There is no perforation. No free fluid or hematoma. 3. No renal obstruction. Chest X-Ray 07/03/24 15:13 IMPRESSION: Interval placement of the PICC line with tip likely near the cavoatrial junction. Laboratory Results WBC 6.62 10^3/uL (3.29-11.43) 07/03/24 10:22 RBC 2.80 10^6/uL (3.85-5.65) L 07/03/24 10:22 Hgb 7.20 g/dL (11.27-16.99) L 07/03/24 10:22 Hct 24.7 % (36-47) L 07/03/24 10:22 MCV 88.2 fl (85-98) 07/03/24 10:22 MCH 25.7 pg (27-33) L 07/03/24 10:22 MCHC 29.1 g/dL (30-55) L 07/03/24 10:22 RDW 18.5 % (12.1-15.1) H 07/03/24 10:22 Plt Count 396 10^3/cmm (157-399) 07/03/24 10:22 MPV 8.2 fL (7.4-10.4) 07/03/24 10:22 Neut % (Auto) 67.5 % 07/03/24 10:22 Lymph % (Auto) 22.2 % 07/03/24 10:22 [place] % (Auto) 6.0 % 07/03/24 10:22 Eos % (Auto) 2.3 % 07/03/24 10:22 Baso % (Auto) 1.1 % 07/03/24 10:22 Neut # (Auto) 4.47 10^3/uL (1.8-7.7) 07/03/24 10:22 Lymph # (Auto) 1.5 10^3/uL (0.8-4.8) 07/03/24 10:22 [place] # (Auto) 0.4 10^3/uL (0.2-0.9) 07/03/24 10:22 Eos # (Auto) 0.2 10^3/uL (0.0-0.8) 07/03/24 10:22 Baso # (Auto) 0.1 10^3/uL (0.0-0.1) 07/03/24 10:22 Nucleated RBC % (auto) 0 % 07/03/24 10: Nucleated RBCs # 0.0 /100WBC 07/03/24 10: ESR 17 mm/hr (0-15) H 07/03/24 10:22 PT 14.20 SECONDS (12.1-14.9) 07/03/24 10: INR 1.03 (0.8-1.2) 07/03/24 10:22 Sodium 141 mmol/L (136-145) 07/03/24 10:22 Potassium 3.3 mmol/L (3.5-5.1) L 07/03/24 10:22 Chloride 109 mmol/L (98-107) H 07/03/24 10: Carbon Dioxide 20 mmol/L (22-29) L 07/03/24 10:22 Anion Gap 15.3 (5-19) 07/03/24 10: BUN 3 mg/dL (6-20) L 07/03/24 10:22 Creatinine 0.6 mg/dL (0.5-0.9) 07/03/24 10:22 GFR Calculation 102.3 mL/min (90-130) 07/03/24 10:22 Glucose 134 mg/dL (65-115) H 07/03/24 10:22 Estimat Average Glucose 111 07/03/24 10:22 Hemoglobin A1c 5.5 % (4.0-6.0) 07/03/24 10:22 Calculated Osmolality 291 mOsm/kg (285-295) 07/03/24 10:22 Lactic Acid 1.7 mmol/L (0.5-2.2) 07/03/24 10:22 Calcium 7.8 mg/dL (8.5-10.5) L 07/03/24 10:22 Iron 23 ug/dL (37-145) L 07/03/24 10:22 TIBC 125 mcg/dl 07/03/24 10: % Saturation 18.4 % (20-50) L 07/03/24 10:22 Unsat Iron Binding 102 ug/dL (112-347) L 07/03/24 10:22 Total Bilirubin 0.3 mg/dL (0.15-1.2) 07/03/24 10:22 AST 25 U/L (0-32) 07/03/24 10:22 ALT 18 U/L (0-33) 07/03/24 10:22 Alkaline Phosphatase 95 U/L (35-105) 07/03/24 10:22 C-Reactive Protein 15.3 mg/L (0.0-4.9) H 07/03/24 10:22 Total Protein 5.4 g/dL (6.6-8.7) L 07/03/24 10:22 Albumin 2.7 g/dL (3.5-5.2) L 07/03/24 10:22 Globulin 2.7 g/dL (1.3-4.6) 07/03/24 10:22 Vitamin B12 1208 pg/mL (232-1245) 07/03/24 10:22 Procalcitonin 0.09 ng/mL (0-0.5) 07/03/24 10:22 Blood Type A Positive 07/03/24 10:22 Rho(D) Type Rh positive 07/03/24 10:22 Antibody Screen Negative 07/03/24 10:22 Crossmatch See Detail 07/03/24 10:22 All radiology interpretation(s) finalized by discharge Discharge Plan Discharge Patient Disposition: Admitted As Inpatient Admit Provider: Gagan Hoff Clinical Impression: Acute anemia, Diverticulitis large intestine, Lower GI bleed, Sensorineural deafness Condition: Stable Coding Level of Care Code ED Food Service Specialist for Elie Prieto
--- NOTE | 2024-07-03 11:17 | CT_ITS ---
WS: [id number] CT ABDOMEN AND PELVIS WITH CONTRAST HISTORY: Abdominal pain. Recent GI scope. TECHNIQUE: Imaging performed of the abdomen and pelvis with IV contrast. Single phase imaging of the abdomen. Coronal and sagittal reformats are submitted. All CT scans at [facility] use at least one of these dose optimization techniques: automated exposure control; mA and/or kV adjustment per patient size (includes targeted exams where dose is matched to clinical indication); or iterative reconstruction. IV CONTRAST: Omnipaque 350; 100 mL IV. Oral contrast: No DLP: 996.92 mGy.cm COMPARISON: 06/29/2024 Lower thorax: Lung bases are clear. Heart is normal size. No hiatal hernia. Liver/biliary system: Normal size with no intrahepatic dilatation. Gallbladder: Normal. No gallstones or wall thickening. No pericholecystic fluid. Pancreas: Normal size pancreas and pancreatic duct. No adjacent inflammation. Spleen: Normal size spleen. No mass or infarct. Adrenal glands: Normal. Right kidney: Normal. Left kidney: Normal. Aorta: Normal. Lymphadenopathy: None. Free fluid: None. GI tract: Normal appearance of the stomach and small bowel. Long segment loop of colon is abnormal. Beginning just distal to the hepatic flexure is increasing air and wall thickening and pericolonic stranding extending through the splenic flexure and proximal descending colon. The lumen is dilated particularly in the region of the splenic flecture with increased attenuation in the colon with wall thickening and dilatation. Findings are consistent with intraluminal blood products. Findings have progressed since the prior study of 06/29/2024. Most significant abnormality and may be the area of bleeding involves the distal transverse colon towards the splenic flexure. No obvious site of acute GI bleed. Abdominal wall: Fat containing umbilical hernia. Pelvis: No free fluid or adenopathy within the pelvis. Prior hysterectomy. Bones: Degenerative disc disease and osteophytosis in the visualized lumbar and thoracic spines. CT/CT abdomen pelvis w con* [id number] IMPRESSION: 1. Long segment colon abnormality beginning just distal to the hepatic flexure into the proximal descending colon. Circumferential wall thickening with enhan cement and pericolonic edema with heterogeneous increased products within the l umen consistent with blood. Findings have progressed since 06/29/2024. The most significant area of concern appears to be just proximal to the splenic fracture . An active site of bleeding is not identified. 2. There is no perforation. No free fluid or hematoma. 3. No renal obstruction.
[2024-07-03 11:49] LABS: Lactic Sepsis W/Reflex 1.7 mmol/L (0.5-2.2)
[2024-07-03] MEDS: piperacillin-tazobactam 3.375 GM in sodium chloride 0.9% (plus) 50 ML IV ×2 (11:54→19:35)
[2024-07-03] MEDS: SODIUM CHLORIDE 0.9% 3184.23 ML IV (11:55)
[2024-07-03 13:48] LABS: INR 1.03 (0.8-1.2)
--- NOTE | 2024-07-03 14:06 | PM.HP ---
Providers/Chief Complaint Admitting Physician: Gagan Hoff MD Primary Care Provider: Wilda Sloan MD Chief Complaint: bloody stools History of Present Illness Poppy Villeda is a 59 year old female who is legally deaf and mute with past medical history of hypothyroidism, hypertension, migraines who was admitted to the hospital from 9- when she was treated for GI bleed. She underwent EGD and sigmoidoscopy as her bowels are not completely prep for colonoscopy. No active signs of bleeding was found. She overall received 1 unit of BBC during that hospitalization. She was discharged on oral antibiotic with concerns for colitis. She presents to the ER again today because of bloody bowel movements. As per the mother who is patient's community center worker and interprets for sign language patient has been having left lower quadrant abdominal pain for last 2 days and has been having mild bloody bowel movement since discharge but had large amount of bloody bowel movements overnight hence to present to the ER. In the ER she was found to have a hemoglobin of 7.2. CT abdomen pelvis was done and as reported below. On presentation in the ER patient was found to be hypotensive. 1 unit of PRBC was ordered and she was started on sepsis bolus. Review of Systems General: Reports: 10 or more systems reviewed and unremarkable except in HPI and below Const: Denies: fever(s), chills, body aches, change in appetite, change in weight, malaise, night sweats, diaphoresis, change in sleep pattern, daytime sleepiness or snoring Eyes: Denies: change in vision, blurry vision, photophobia, eye discomfort or eye discharge ENMT: Denies: throat pain, enlarged tonsils, hoarseness, mouth pain, oral sores, dry mouth, tinnitus, nasal congestion or post nasal drip Card: Denies: chest pain, palpitations, irregular heart rhythm, edema, swelling of feet/ankles, lightheadedness, syncope, pre-syncope, dyspnea on exertion, orthopnea, leg pain with exertion or acrocyanosis Resp: Denies: dyspnea, productive cough, non-productive cough, wheezing, stridor, pain on inspiration, change in phlegm color, hemoptysis or chest congestion GI: Denies: abdominal pain, nausea, vomiting, hematemesis, coffee ground emesis, dysphagia, heartburn, diarrhea, constipation, bloating, GI cramping, change in bowel habits, pain on defecation, hematochezia or melena : Denies: flank pain, dysuria, urinary frequency, urinary urgency, urinary hesitancy, nocturia or hematuria Musc: Denies: neck pain, back pain, extremity pain, joint pain, joint swelling, joint redness, joint stiffness or limited range of motion Neuro: Denies: headache(s), numbness in extremities, weakness in extremities, sensory changes, lack of coordination, difficulty walking, frequent falls, dizziness, vertigo, confusion, Slurred speech present, difficulty communicating thoughts or seizure-like activity Psych: Denies: anxiety, depression, mood swings, panic attacks, hopelessness or irritability Endo: Denies: polyuria, polydipsia, tired all the time, cold intolerance, excessive sweating, flushing or heat intolerance Frank/Lymph: Denies: easy bruising or easy bleeding All/Imm: Denies: tongue swelling, facial swelling or acute wheezing Medications/Allergies Home Medications ?Medication ?Instructions ?Recorded ?Confirmed ?Last Taken ?Type levothyroxine 88 mcg capsule 88 mcg PO QDAY 04/17/19 07/03/24 07/03/24 History montelukast 10 mg tablet 10 mg PO QDAY 04/17/19 07/03/24 07/02/24 History pantoprazole 40 mg tablet,delayed 40 mg PO QDAY 04/17/19 07/03/24 07/02/24 History release galcanezumab-gnlm 120 mg/mL See Rx Instructions .Route 05/08/24 07/03/24 06/25/24 Rx subcutaneous pen injector .COMPLEX #1 mL (Emgality Pen) albuterol sulfate 90 mcg/actuation 2 puff inhalation Q6H PRN 06/28/24 07/03/24 Unknown History aerosol inhaler Shortness Of Breath aspirin 81 mg tablet,delayed 81 mg PO DAILY 06/28/24 07/03/24 06/27/24 History release Held on 07/01/24. Instructions: Resume on 07/22/24. hold until you see primary care baclofen 10 mg tablet 10 mg PO DAILY PRN Pain 06/28/24 07/03/24 Unknown History clobetasol 0.05 % topical cream See Rx Instructions .Route .COMPLEX 06/28/24 07/03/24 Unknown History flaxseed oil 1,000 mg capsule 1,000 mg PO DAILY 06/28/24 07/03/24 07/02/24 History fluconazole 200 mg tablet See Rx Instructions .Route .COMPLEX 06/28/24 07/03/24 06/28/24 History fluticasone 500 mcg-salmeterol 50 1 inh inhalation BID PRN Shortness 06/28/24 07/03/24 06/27/24 History mcg/dose blistr powdr for Of Breath inhalation memantine 10 mg tablet 10 mg PO BID 06/28/24 07/03/24 07/02/24 History methocarbamol 500 mg tablet 500 - 1,000 mg PO BID PRN Pain 06/28/24 07/03/24 Unknown History oxybutynin chloride 5 mg See Rx Instructions .Route .COMPLEX 06/28/24 07/03/24 07/02/24 History tablet,extended release 24 hr valacyclovir 500 mg tablet See Rx Instructions .Route .COMPLEX 06/28/24 07/03/24 07/02/24 History amoxicillin 875 mg-potassium 1 tab PO BID 10 days #20 tabs 07/01/24 07/03/24 07/02/24 Rx clavulanate 125 mg tablet ferrous sulfate 325 mg (65 mg 325 mg PO BID 30 days #60 tabs 07/01/24 07/03/24 07/02/24 Rx iron) tablet topiramate 50 mg tablet 50 mg PO DAILY 07/03/24 07/03/24 07/02/24 History Allergies Allergy/AdvReac Type Severity Reaction Status Date / Time lansoprazole (From PREVACID Allergy Unknown UNKNOWN Verified 05/10/23 10:06 NapraPAC) naproxen (From PREVACID Allergy Unknown UNKNOWN Verified 05/10/23 10:06 NapraPAC) Sulfa (Sulfonamide Allergy Unknown UNKNOWN Verified 05/10/23 10:06 Antibiotics) sulfamethoxazole (From Allergy Unknown UNKNOWN Verified 05/10/23 10:06 Bactrim) trimethoprim (From Bactrim) Allergy Unknown UNKNOWN Verified 05/10/23 10:06 PFSH Acute PFSH: Medical History (Updated 07/03/24 @ 15:20 by Gagan Hoff MD) Sensorineural deafness Mute History of hypothyroidism Surgical History (Updated 06/27/24 @ 18:21 by Charbel Victoria MD) H/O: hysterectomy Family History Other CAD (coronary artery disease) Diabetes Hypertension Denies family history of Stroke Social History Smoking and tobacco/nicotine status: never used tobacco/nicotine Alcohol intake: never Substance/Drug Use: never Vitals/I&O/Wt Last Vital Signs Temp 98.2 F 07/03/24 13:09 Pulse 78 07/03/24 13:09 Resp 17 07/03/24 13:09 BP 113/79 07/03/24 13:09 Pulse Ox 100 07/03/24 13:09 O2 Del Method Room Air 07/03/24 12:30 07/02/24 07/03/24 07/03/24 22:59 06:59 14:59 Intake Total 0 / 0 Balance 0 / 0 Weight last 48 hrs Weight 106.141 kg Physical Exam Narrative: General: No acute distress, AO x3, deaf, mute HEENT: PERRLA, pupils bilaterally equal and reactive Chest: Normal vesicular breath sounds, no added sounds, equal good air entry bilaterally CVS: S1-S2 regular, no murmurs, no tachycardia, no gallops, no rubs Abdomen: Soft, tender in left lower quadrant, no organomegaly, hyperactive bowel sounds present Neuro: No focal deficits, no facial deformity, AO x3, power 5/5 in all limbs Data 07/03/24 10:22 07/03/24 10:22 Micro: Microbiology 07/03/24 11:35 Blood Culture - Preliminary Blood SPECIMEN COLLECTED 07/03/24 10:22 Blood Culture - Preliminary Blood SPECIMEN COLLECTED A&P Assessment and plan (1) Acute anemia: (2) Diverticulitis large intestine: (3) Shock: (4) Lower GI bleed: (5) Bleeding per rectum: (6) Sensorineural deafness: Plan 59-year-old female who was recently for lower GI bleed received 1 unit of blood transfusion and underwent EGD and sigmoidoscopy where she was not found to have any active site of bleeding presents to the ER today because of bleeding per rectum and left lower quadrant abdominal pain. Shock: Most likely hemorrhagic. Less likely septic. Keep mean artery pressure 65. If needed will start Levophed. Continue to finish the sepsis bolus after that switch to NS at 100 cc/h. Lower GI bleed/bleeding per rectum: Underwent EGD and sigmoidoscopy recently. Could not get complete colonoscopy because of poor oral prep. Surgery consulted. No plan for colonoscopy for now given concerns for diverticulitis. 80 mg IV Protonix one-time followed by 40 mg twice daily. Zofran as needed. Appreciate CT abdomen pelvis. No concern for mesenteric ischemia for now. Lactate within normal limits. Less likelihood of inflammatory bowel disease though cannot be ruled out. Appreciate recent ESR and CRP. Will repeat. Acute anemia: Was discharged on 8.3. Currently 7.2. Baseline hemoglobin not present in the chart. Already receiving 1 unit of blood transfusion. As patient is in shock with large amount of blood in CT abdomen/pelvis. Will order 2 more units of PRBC. Check iron panel, vitamin B12 and folate levels. Monitor hemoglobin every 6 hours. Check INR. Diverticulitis: Seen on CT abdomen/pelvis. Check blood culture, stool studies. Start on IV Zosyn for now. Rule out C. difficile. Goals of care: Discussed in detail with patient's mother at bedside who interpreted also for patient. Discussed that patient is having large amount of blood loss because of GI bleed. Discussed unfortunately she possibly would not need a colonoscopy for now because of concerns for diverticulitis which puts her at a higher risk of perforation. Discussed plan for now would be to continue with IV antibiotics with blood transfusions as needed. Case bleeding does not resolve or improve in next 24 to 48 hours might have to transfer her to a tertiary center where gastroenterology or IR are available. Patient and mother verbalized understanding and agreeable with current treatment plan. Continue other chronic medications including memantine, levothyroxine. Will need at least 2 18-gauge use of IV cannula. If not we will request for central line placement. Clear liquid diet Protonix OPD prophylaxis SCD for DVT prophylaxis. PDMP PDMP Reviewed: Not Reviewed Attestations Medical Necessity Statement*: Admission for more than 2 midnights for management of shock in setting of lower GI bleed due to diverticulitis leading to hemorrhagic shock Coding Level of Care Code Critical Care >/= 30 minutes Critical care time (in minutes): 80 The high probability of a clinically significant, sudden or life threatening deterioration, as referenced in this documentation, required my full and direct attention, intervention and personal management. The critical care time shown is in addition to time spent performing any reported separately billable procedures and includes the following: [x] Data and vital sign review and interpretation [x] Patient assessment, examination and intervention [x] Medication orders and management [x] Patient/Family updates as able [x] Care Coordination and Documentation. Other Coding Information This patient has a high probability of clinically significant, sudden or life threatening deterioration of the patient's (neurological/pulmonary/cardiac/renal/ID/endocrine) systems required my full, direct attention, the highest level of physician preparedness for urgent intervention and personal management. I managed/supervised life or organ supporting interventions that required frequent physician assessment. I devoted my full attention in the ICU to the direct care of this patient for the period of time indicated above. Time I spent with family or surrogate(s) is included only if the patient was incapable of providing necessary information or participating in decision making. This time includes the following services provided: Telemetry review Hemodynamic interpretation, assessment and management Review and interpretation of CXR Review and interpretation of lab values Review and interpretation of microbiologic data and culture results Review of medications and administration Review and interpretation of Nutrition requirements and management Discussion of management with other consultants and services Clinical update to family members Diagnoses Acute anemia D64.9 Diverticulitis large intestine K57.32 Shock R57.9 Lower GI bleed K92.2 Bleeding per rectum K62.5 Sensorineural deafness H90.5
[2024-07-03 14:31] LABS: Iron 23 ug/dL (37-145); Percent Saturation 18.4 % (20-50); Total Iron Binding Capacity 125 mcg/dl; Unsaturated Iron Binding 102 ug/dL (112-347)
--- NOTE | 2024-07-03 14:32 | PM.CONSULT ---
Providers/Reason For Consult Consulting Physician/Specialty*: Dr. Kessler general surgery Reason for Consult*: Diverticulitis Attending Physician: Gagan Hoff MD Primary Care Provider: Wilda Sloan MD History of Present Illness History of Present Illness Poppy Villeda is a 59 year old female who was recently scoped for anemia. EGD was negative for bleeding. Colonoscopy was incomplete due to poor prep however there was no blood in the rectum or sigmoid. Patient is now presenting with left lower quadrant pain consistent with diverticulitis. CT scan also consistent with diverticulitis. Patient is having bloody bowel movements. Initially hypotensive but now hemodynamics are acceptable following transfusion of 2 units of blood. Abdomen is soft, nonperitoneal, tender left lower quadrant. Medications/Allergies Home Medications ?Medication ?Instructions ?Recorded ?Confirmed ?Last Taken ?Type levothyroxine 88 mcg capsule 88 mcg PO QDAY 04/17/19 07/03/24 07/03/24 History montelukast 10 mg tablet 10 mg PO QDAY 04/17/19 07/03/24 07/02/24 History pantoprazole 40 mg tablet,delayed 40 mg PO QDAY 04/17/19 07/03/24 07/02/24 History release galcanezumab-gnlm 120 mg/mL See Rx Instructions .Route 05/08/24 07/03/24 06/25/24 Rx subcutaneous pen injector .COMPLEX #1 mL (Emgality Pen) albuterol sulfate 90 mcg/actuation 2 puff inhalation Q6H PRN 06/28/24 07/03/24 Unknown History aerosol inhaler Shortness Of Breath aspirin 81 mg tablet,delayed 81 mg PO DAILY 06/28/24 07/03/24 06/27/24 History release Held on 07/01/24. Instructions: Resume on 07/22/24. hold until you see primary care baclofen 10 mg tablet 10 mg PO DAILY PRN Pain 06/28/24 07/03/24 Unknown History clobetasol 0.05 % topical cream See Rx Instructions .Route .COMPLEX 06/28/24 07/03/24 Unknown History flaxseed oil 1,000 mg capsule 1,000 mg PO DAILY 06/28/24 07/03/24 07/02/24 History fluconazole 200 mg tablet See Rx Instructions .Route .COMPLEX 04/01/1207/03/24 06/28/24 History fluticasone 500 mcg-salmeterol 50 1 inh inhalation BID PRN Shortness 06/28/24 07/03/24 06/27/24 History mcg/dose blistr powdr for Of Breath inhalation memantine 10 mg tablet 10 mg PO BID 06/28/24 07/03/24 07/02/24 History methocarbamol 500 mg tablet 500 - 1,000 mg PO BID PRN Pain 06/28/24 07/03/24 Unknown History oxybutynin chloride 5 mg See Rx Instructions .Route .COMPLEX 06/28/24 07/03/24 07/02/24 History tablet,extended release 24 hr valacyclovir 500 mg tablet See Rx Instructions .Route .COMPLEX 06/28/24 07/03/24 07/02/24 History amoxicillin 875 mg-potassium 1 tab PO BID 10 days #20 tabs 07/01/24 07/03/24 07/02/24 Rx clavulanate 125 mg tablet ferrous sulfate 325 mg (65 mg 325 mg PO BID 30 days #60 tabs 07/01/24 07/03/24 07/02/24 Rx iron) tablet topiramate 50 mg tablet 50 mg PO DAILY 07/03/24 07/03/24 07/02/24 History Allergies Allergy/AdvReac Type Severity Reaction Status Date / Time lansoprazole (From PREVACID Allergy Unknown UNKNOWN Verified 05/10/23 10:06 NapraPAC) naproxen (From PREVACID Allergy Unknown UNKNOWN Verified 05/10/23 10:06 NapraPAC) Sulfa (Sulfonamide Allergy Unknown UNKNOWN Verified 05/10/23 10:06 Antibiotics) sulfamethoxazole (From Allergy Unknown UNKNOWN Verified 05/10/23 10:06 Bactrim) trimethoprim (From Bactrim) Allergy Unknown UNKNOWN Verified 05/10/23 10:06 PFSH Acute PFSH: Medical History (Updated 07/02/24 @ 00:00 by KATHERIN Zhang) History of hypothyroidism Surgical History (Updated 06/27/24 @ 18:21 by Charbel Victoria MD) H/O: hysterectomy Family History Other CAD (coronary artery disease) Diabetes Hypertension Denies family history of Stroke Social History Smoking and tobacco/nicotine status: never used tobacco/nicotine Alcohol intake: never Substance/Drug Use: never Vitals/I&O/Wt Last Vital Signs Temp 98.2 F 07/03/24 13:09 Pulse 78 07/03/24 13:09 Resp 17 07/03/24 13:09 BP 113/79 07/03/24 13:09 Pulse Ox 100 07/03/24 13:09 O2 Del Method Room Air 07/03/24 12:30 07/02/24 07/03/24 07/03/24 22:59 06:59 14:59 Intake Total 50 / 50 Balance 50 / 50 Weight last 48 hrs Weight 234 lb Physical Exam Narrative: Chest: Unlabored breathing room air. No lymphadenopathy. Heart: Regular rate and rhythm. Abdomen: Soft, tender left lower quadrant, nondistended. No masses or lymphadenopathy. Data 07/03/24 10:22 07/03/24 10:22 Micro: Microbiology 07/03/24 11:35 Blood Culture - Preliminary Blood SPECIMEN COLLECTED 07/03/24 10:22 Blood Culture - Preliminary Blood SPECIMEN COLLECTED A&P Assessment and plan (1) Diverticulitis: Plan 59-year-old female who presents with diverticulitis and hematochezia. CT scan findings consistent with this. No role for scope at this time due to high risk of perforation. Treat conservatively with antibiotics, and bowel rest. Continue resuscitation with blood. If patient continues bleeding will need transfer for IR embolization. PDMP PDMP Reviewed: Not Reviewed Coding Level of Care Code 48005 Diagnoses Diverticulitis K57.92
[2024-07-03 14:48] LABS: Procalcitonin 0.09 ng/mL (0-0.5); Vitamin B12 1208 pg/mL (232-1245)
--- NOTE | 2024-07-03 15:13 | XRR_ITS ---
PROCEDURE INFORMATION: Exam: XR Chest Exam date and time: 07/03/2024 4:03 PM Age: 59 years old Clinical indication: Device placement; Picc; Additional info: Picc placement TECHNIQUE: Imaging protocol: Radiologic exam of the chest. Views: 1 view. COMPARISON: CR (CHEST, ) 06/27/2024 8:13 PM FINDINGS: Tubes, catheters and devices: Interval placement of right-sided PICC line with tip not well delineated lobe likely near the cavoatrial junction. Lungs: Suboptimal pulmonary expansion with associated accentuation of bronchovascular markings. No acute pulmonary pathology given technique. Pleural spaces: No pneumothorax. No pleural effusion. Heart/Mediastinum: Cardiomediastinal contours accentuated by low lung volumes and AP technique. Bones/joints: No significant pathology. XR/XR chest 1V portable [id number] IMPRESSION: Interval placement of the PICC line with tip likely near the cavoatrial junction.
--- NOTE | 2024-07-03 15:15 | PC.NURSE ---
Patient received at 1448 from ED. PRBC paused during transfer to ICU 4. PRBC started again at rate they were running in ED.
[2024-07-03 15:40] LABS: Estmated Average Glucose 111; Hemoglobin A1C 5.5 % (4.0-6.0)
[2024-07-03 15:52] LABS: Erythrocyte Sedimentation Rate 17 mm/hr (0-15)
[2024-07-03 16:37] LABS: C Reactive Protein 15.3 mg/L (0.0-4.9)
--- NOTE | 2024-07-03 16:49 | PICC.NOTE ---
Triple lumen PICC placed to right brachial vein. Referred to vascular access nurse for PICC placement due to inability to place a peripheral IV, left arm picc veins non-compressible. Risks and benefits discussed and informed consent obtained. Right arm assessed with brachial vein measuring 40 mm, straight, and apparent best choice for placement. Using sterile technique and MST, right brachial vein accessed x 1 stick. Mid-arm circumference measured 10 cm from right AC 35 cm. Trimmed cath 43 cm with 1 cm external length noted. CXR shows tip in cavoatrial junction, in good position for use per radiologist. Line secured with stat-lock. Insertion site covered with Biopatch and TSM. Report given to bedside nurse, Ananya HART.
[2024-07-03] MEDS: pantoprazole 40 mg SDV IVP (16:58)
[2024-07-03] MEDS: sodium chlor 0.9% + KCl 20 mEq 20 MEQ/1,000 ML BAG 100 MEQ IV (17:00)
[2024-07-03] MEDS: lidocaine 1% 5 ML in potassium chloride premix 100 ML 26.25 ML IV ×2 (17:16→22:13)
[2024-07-03] MEDS: memantine 5 mg tablet 10 MG PO (17:57)
[2024-07-03 22:23] LABS: Bilirubin Urine Negative (Negative); Blood Urine 1+ (Negative); Glucose Urine UA Negative (Normal); Ketones Urine Negative (Negative); Leukocyte Esterase Urine Negative (Negative); Nitrate Urine Negative (Negative); Protein Urine Negative (Negative); Urine Appearance Clear (CLEAR); Urine Color Yellow (Yellow); Urobilinogen Urine 0.2 mg/dL (Negative); pH Urine 5.5 (5-7)
[2024-07-03 22:28] LABS: Add Urine Microscopic? YES; Bacteria Urine None Seen /hpf; Hyaline Casts Urine 0.81 /lpf; RBC Urine 0-2 /hpf (0-2); WBC Urine 0-5 /hpf (0-5)
[2024-07-03 22:29] LABS: Specific Gravity, Urine 1.047 (1.005-1.030)
[2024-07-03 22:50] LABS: Hematocrit 26.8 % (36-47)
[2024-07-04] VITALS (207 sets, daily range): BP systolic 45–121; BP diastolic 34–80; PULSE 65–129; RESP 13–37; TEMP 36.3–36.5; O2SAT 85–100
[2024-07-04] MEDS: sodium chlor 0.9% + KCl 20 mEq 20 MEQ/1,000 ML BAG 100 MEQ IV ×3 (03:23→22:50)
[2024-07-04] MEDS: piperacillin-tazobactam 3.375 GM in sodium chloride 0.9% (plus) 50 ML IV ×3 (03:24→21:03)
[2024-07-04] MEDS: pantoprazole 40 mg SDV IVP ×2 (03:24→12:46)
[2024-07-04 03:48] LABS: Basophils # 0.1 10^3/uL (0.0-0.1); Basophils % 1.3 %; Eosinophils # 0.3 10^3/uL (0.0-0.8); Eosinophils % 4.6 %; Hematocrit 26.2 % (36-47); Lymphocytes # 2.1 10^3/uL (0.8-4.8); Lymphocytes % 32.5 %; Mean Corpuscular HGB Conc 31.7 g/dL (30-55); Mean Corpuscular Hemoglobin 27.1 pg (27-33); Mean Corpuscular Volume 85.6 fl (85-98); Mean Platelet Volume 8.4 fL (7.4-10.4); Monocytes # 0.5 10^3/uL (0.2-0.9); Monocytes % 8.2 %; Neutrophils # 3.29 10^3/uL (1.8-7.7); Neutrophils % 52.1 %; Nucleated Red Blood Cells % 0.3 %; Platelet Count 256 10^3/cmm (157-399); Red Blood Count 3.06 10^6/uL (3.85-5.65); Red Cell Distribution Width 17.1 % (12.1-15.1); White Blood Count 6.31 10^3/uL (3.29-11.43)
[2024-07-04 04:08] LABS: Alanine Aminotransferase 11 U/L (0-33); Albumin Level 2.2 g/dL (3.5-5.2); Alkaline Phosphatase 76 U/L (35-105); Anion Gap 13.2 (5-19); Aspartate Amino Transferase 20 U/L (0-32); Blood Urea Nitrogen 3 mg/dL (6-20); Calcium 7.2 mg/dL (8.5-10.5); Carbon Dioxide 22 mmol/L (22-29); Chloride 114 mmol/L (98-107); Chol HDL Ratio 2.53 mg/dL (0.0-4.40); Cholesterol 81 mg/dL (0-200); Creatinine Clr Calc Pharmacy 149.2133; Glomerular Filtration Rate 126.3 mL/min (90-130); Glucose 99 mg/dL (65-115); HDL Cholesterol 32 mg/dL (60-100); LDL Cholesterol Calculated 21 mg/dL (50-129); LDL HDL Ratio 0.66 RATIO (0.00-3.22); Lactic Sepsis W/Reflex 0.7 mmol/L (0.5-2.2); Osmolality Calculated 297 mOsm/kg (285-295); Phosphorus 2.2 mg/dL (2.5-4.5); Potassium 4.2 mmol/L (3.5-5.1); Sodium 145 mmol/L (136-145); Total Bilirubin 0.7 mg/dL (0.15-1.2); Total Protein 4.2 g/dL (6.6-8.7); Triglycerides 138 mg/dL (0-150)
[2024-07-04 04:39] LABS: Folate Level 6.5 ng/mL (4.8-37.3)
[2024-07-04] MEDS: morphine 4 mg/mL SDV 1 mL 2 MG IVP (05:36)
[2024-07-04] MEDS: levothyroxine 88 mcg Tablet PO (08:18)
[2024-07-04] MEDS: memantine 5 mg tablet 10 MG PO ×2 (08:18→17:02)
[2024-07-04] MEDS: iron sucrose 200 MG in sodium chloride 0.9% (100 ml) 100 ML 220 MG IV (09:19)
[2024-07-04] MEDS: HYDROmorphone 0.5 MG/0.5 ML INJ 0.4 MG IVP ×2 (10:26→17:02)
[2024-07-04 12:29] LABS: Hematocrit 26.8 % (36-47)
--- NOTE | 2024-07-04 13:41 | P.PN_ITS ---
Subjective 2 Subjective: Patient seen laying comfortably in bed. Continues to have lower abdominal pain. As per the nursing staff having less bloody bowel movements. During the day patient had 2 large bowel movements blood mixed with clots again. Has remained hemodynamically stable. Not required vasopressors. Vitals/I&O/Wt Last Vital Signs Temp 97.3 F L 07/04/24 08:20 Pulse 87 07/04/24 12:30 Resp 25 H 07/04/24 12:30 BP 90/63 07/04/24 12:30 Pulse Ox 100 07/04/24 12:30 O2 Del Method Room Air 07/03/24 15:04 07/03/24 07/04/24 07/04/24 22:59 06:59 14:59 Intake Total 1765 / 1815 1290 / 3105 4694.23 / 4694.23 Output Total 120 / 120 650 / 650 Balance 1645 / 1695 1290 / 2985 4044.23 / 4044.23 Weight last 48 hrs Weight 114.093 kg Weight 113 kg Weight 106.141 kg Physical Exam 2 Narrative: General: No acute distress, AO x3, deaf, mute HEENT: PERRLA, pupils bilaterally equal and reactive Chest: Normal vesicular breath sounds, no added sounds, equal good air entry bilaterally CVS: S1-S2 regular, no murmurs, no tachycardia, no gallops, no rubs Abdomen: Soft, tender in left lower quadrant, no organomegaly, hyperactive bowel sounds present Neuro: No focal deficits, no facial deformity, AO x3, power 5/5 in all limbs Data 07/04/24 12:20 07/04/24 03:10 Micro: Microbiology 07/03/24 11:35 Blood Culture - Preliminary Blood NEGATIVE TO DATE 07/03/24 10:22 Blood Culture - Preliminary Blood NEGATIVE TO DATE A&P Assessment and plan (1) Acute anemia: (2) Diverticulitis large intestine: (3) Shock: (4) Lower GI bleed: (5) Bleeding per rectum: (6) Sensorineural deafness: Plan 59-year-old female who was recently for lower GI bleed received 1 unit of blood transfusion and underwent EGD and sigmoidoscopy where she was not found to have any active site of bleeding presents to the ER today because of bleeding per rectum and left lower quadrant abdominal pain. Shock: Most likely hemorrhagic. Less likely septic. Keep mean artery pressure 65. If needed will start Levophed. Patient continues to have soft blood pressures. Continue with NS at 100 cc/h. Lower GI bleed/bleeding per rectum: Underwent EGD and sigmoidoscopy recently. Could not get complete colonoscopy because of poor oral prep. Surgery consulted. No plan for colonoscopy for now given concerns for diverticulitis. Appreciate CT abdomen pelvis. No concern for mesenteric ischemia for now. Lactate within normal limits. Less likelihood of inflammatory bowel disease though cannot be ruled out. Appreciate repeat ESR and CRP. Seems to be stable. CRP trending down. Continue Protonix 40 mg twice daily. Acute anemia: Hemoglobin stable at 8.3. Patient received overall 3 unit of blood transfusion. Start on IV iron supplementation. Appreciate vitamin B12 and folate levels. Continue to monitor hemoglobin every 6 hours. INR normal. Target hemoglobin more than 7 if patient remains hemodynamically stable. If develops hemodynamic instability will transfuse again. Diverticulitis: Seen on CT abdomen/pelvis. Follow-up blood culture, stool studies pending. Continue with IV Zosyn for now. Rule out C. difficile. Goals of care: Discussed in detail with patient's mother at bedside who interpreted also for patient. Discussed that patient is having large amount of blood loss because of GI bleed. Discussed unfortunately she possibly would not need a colonoscopy for now because of concerns for diverticulitis which puts her at a higher risk of perforation. Discussed plan for now would be to continue with IV antibiotics with blood transfusions as needed. Case bleeding does not resolve or improve in next 24 to 48 hours might have to transfer her to a tertiary center where gastroenterology or IR are available. Patient and mother verbalized understanding and agreeable with current treatment plan. Continue other chronic medications including memantine, levothyroxine. Will need at least 2 18-gauge use of IV cannula. If not we will request for central line placement. Clear liquid diet Protonix OPD prophylaxis SCD for DVT prophylaxis. PDMP PDMP Reviewed: Not Reviewed Attestations 2 Medical Necessity Statement*: Requires further hospitalization for management of significant lower GI bleed in setting of diverticulitis leading to symptomatic anemia requiring blood transfusion, severe hypotension due to hemorrhagic shock Diagnoses Acute anemia D64.9 Diverticulitis large intestine K57.32 Shock R57.9 Lower GI bleed K92.2 Bleeding per rectum K62.5 Sensorineural deafness H90.5
[2024-07-04 15:45] LABS: Hematocrit 23.3 % (36-47)
[2024-07-04 18:06] LABS: C.Diff PCR (Lab) NEGATIVE (Negative)
[2024-07-04 21:28] LABS: Hematocrit 24.1 % (36-47)
[2024-07-05] VITALS (28 sets, daily range): BP systolic 82–127; BP diastolic 44–82; PULSE 76–120; RESP 13–100; TEMP 36.4–37; O2SAT 93–100
[2024-07-05] MEDS: HYDROmorphone 0.5 MG/0.5 ML INJ 0.4 MG IVP ×3 (00:37→13:19)
[2024-07-05] MEDS: pantoprazole 40 mg SDV IVP ×2 (00:38→12:58)
[2024-07-05] MEDS: piperacillin-tazobactam 3.375 GM in sodium chloride 0.9% (plus) 50 ML IV ×2 (04:22→11:42)
[2024-07-05 04:47] LABS: Basophils % 0.7 %; Eosinophils # 0.1 10^3/uL (0.0-0.8); Eosinophils % 2.5 %; Hematocrit 23.3 % (36-47); Lymphocytes # 1.5 10^3/uL (0.8-4.8); Lymphocytes % 26.1 %; Mean Corpuscular HGB Conc 31.8 g/dL (30-55); Mean Corpuscular Hemoglobin 28.8 pg (27-33); Mean Corpuscular Volume 90.7 fl (85-98); Monocytes # 0.5 10^3/uL (0.2-0.9); Monocytes % 8.7 %; Neutrophils # 3.42 10^3/uL (1.8-7.7); Neutrophils % 60.8 %; Nucleated Red Blood Cells % 0.4 %; Platelet Count 228 10^3/cmm (157-399); Red Blood Count 2.57 10^6/uL (3.85-5.65); Red Cell Distribution Width 17.2 % (12.1-15.1); White Blood Count 5.63 10^3/uL (3.29-11.43)
[2024-07-05 05:10] LABS: Alanine Aminotransferase 11 U/L (0-33); Albumin Level 1.9 g/dL (3.5-5.2); Alkaline Phosphatase 67 U/L (35-105); Anion Gap 10.9 (5-19); Aspartate Amino Transferase 16 U/L (0-32); Blood Urea Nitrogen 4 mg/dL (6-20); Calcium 6.9 mg/dL (8.5-10.5); Carbon Dioxide 22 mmol/L (22-29); Chloride 117 mmol/L (98-107); Creatinine Clr Calc Pharmacy 150.0494; Globulin 1.6 g/dL (1.3-4.6); Glomerular Filtration Rate 126.3 mL/min (90-130); Glucose 99 mg/dL (65-115); Magnesium 1.8 mg/dL (1.7-2.3); Osmolality Calculated 297 mOsm/kg (285-295); Phosphorus 2.5 mg/dL (2.5-4.5); Potassium 4.9 mmol/L (3.5-5.1); Sodium 145 mmol/L (136-145); Total Bilirubin 0.4 mg/dL (0.15-1.2); Total Protein 3.5 g/dL (6.6-8.7)
[2024-07-05] MEDS: iron sucrose 200 MG in sodium chloride 0.9% (100 ml) 100 ML 220 MG IV (07:45)
[2024-07-05] MEDS: sodium chlor 0.9% + KCl 20 mEq 20 MEQ/1,000 ML BAG 100 MEQ IV ×2 (07:52→17:45)
[2024-07-05] MEDS: levothyroxine 88 mcg Tablet PO (08:38)
[2024-07-05] MEDS: memantine 5 mg tablet 10 MG PO ×2 (08:38→17:45)
--- NOTE | 2024-07-05 09:28 | CT_ITS ---
WS: [id number] CT ANGIOGRAPHY ABDOMEN AND PELVIS HISTORY: gi bleed TECHNIQUE: CT angiogram is performed during IV injection. Reformation images reviewed. All CT scans at [facility] use at least one of these dose optimization techniques: automated exposure control; mA and/or kV adjustment per patient size (includes targeted exams where dose is matched to clinical indication); or iterative reconstruction. CONTRAST: Omnipaque 350; 100 mL IV. DLP: 1067.26 mGy.cm COMPARISON: CT abdomen/pelvis 06/29/2024 Lung bases are clear. No pneumonia. Normal size heart. Abdominal aorta: Good contrast opacification of the abdominal aorta. Celiac axis and SMA are normally and well enhanced. No thrombus. Normal appearance of the hepatic and splenic arteries. The SMA is normal. Normal enhancement of the iliac arteries. No blush like area of enhancement within the stomach or small bowel. No active bleeding or extravasation is identified. The area of concern involves the mid to distal transverse colon where there is increased wall thickening and enhancement. Increased attenuation to the splenic flexure is probably blood. There is less distention of the GI tract as compared to the prior study. No GI tract obstruction. No free fluid. No visceral organ injury or abnormality. No renal obstruction. CT/CT angio abdomen pelvis 94914 IMPRESSION: 1. No active hemorrhage identified in the colon to suggest a site of hemorrhag e. 2. There is circumferential wall thickening which is irregular and does slight ly enhance. This is involving the transverse colon distal to the midline throug h the splenic flexure. Distal to the splenic fracture there is increased attenu ation in the proximal descending colon consistent with blood products. As marti red to the prior study from 07/03/2024 there has been a decrease in the amount o f intraluminal hemorrhage.
[2024-07-05 09:45] LABS: Hematocrit 24.5 % (36-47)
[2024-07-05] MEDS: tranexamic acid 1,000 MG/100 ML PREMIX 600 MG IV (11:17)
--- NOTE | 2024-07-05 12:09 | P.PN_ITS ---
Subjective 2 Subjective: Left lower quadrant pain better but still present Ongoing hematochezia 6 units of RBCs transfused since admissi on Vitals/I&O/Wt Last Vital Signs Temp 98.6 F 07/05/24 04:00 Pulse 120 H 07/05/24 11:12 Resp 100 H 07/05/24 11:12 BP 90/63 07/05/24 11:12 Pulse Ox 99 07/05/24 11:12 O2 Del Method Room Air 07/05/24 06:00 07/04/24 07/05/24 07/05/24 22:59 06:59 14:59 Intake Total 1320 / 6014.23 530 / 6544.23 953.333 / 953.333 Output Total 1250 / 1900 730 / 2630 400 / 400 Balance 70 / 4114.23 -200 / 3914.23 553.333 / 553.333 Weight last 48 hrs Weight 253 lb 8.505 oz Weight 251 lb 8.505 oz Weight 249 lb 1.957 oz Physical Exam 2 Narrative: Chest: Unlabored breathing room air. No lymphadenopathy. Heart: Regular rate and rhythm. Abdomen: Soft, tender LLQ, nondistended. No masses or lymphadenopathy. Urinary Catheter Management: Simmons: Cath Placed During This Visit: yes Reason for Continuing Indwelling Catheter: Accurate Measurement of Urinary Output in Critically Ill Patients Urinary Catheter Date of Insertion: 07/04/24 Urinary Catheter Time of Insertion: 14:29 Data 07/05/24 09:34 07/05/24 03:02 Micro: Microbiology 07/03/24 16:37 Stool Lactoferrin - Final Stool 07/03/24 11:35 Blood Culture - Preliminary Blood NEGATIVE TO DATE 07/03/24 10:22 Blood Culture - Preliminary Blood NEGATIVE TO DATE A&P Assessment and plan (1) Diverticulitis large intestine: Plan 59-year-old female who presented with colitis. Pain improved however patient continues having hematochezia. 6 units of RBCs transfused since admission. No surgeon on-call starting today and through the weekend. Recommend transfer to higher level of care for for IR embolization and colorectal surgery evaluation. PDMP PDMP Reviewed: Not Reviewed Attestations 2 Medical Necessity Statement*: N/A Coding Level of Care Code 86985 Diagnoses Diverticulitis large intestine K57.32
--- NOTE | 2024-07-05 14:19 | P.PN_ITS ---
Subjective 2 Subjective: Patient seen laying comfortably in bed. Continues to have lower abdominal pain. As per the nursing staff having less bloody bowel movements. During the day patient had 2 large bowel movements blood mixed with clots again. Has remained hemodynamically stable. Not required vasopressors. Vitals/I&O/Wt Last Vital Signs Temp 97.7 F 07/05/24 13:52 Pulse 118 H 07/05/24 12:27 Resp 18 07/05/24 11:27 BP 109/64 07/05/24 12:27 Pulse Ox 100 07/05/24 12:27 O2 Del Method Room Air 07/05/24 06:00 07/04/24 07/05/24 07/05/24 22:59 06:59 14:59 Intake Total 1320 / 6014.23 530 / 6544.23 1303.333 / 1303.333 Output Total 1250 / 1900 730 / 2630 400 / 400 Balance 70 / 4114.23 -200 / 3914.23 903.333 / 903.333 Weight last 48 hrs Weight 115 kg Weight 114.093 kg Weight 113 kg Physical Exam 2 Narrative: General: No acute distress, AO x3, deaf, mute HEENT: PERRLA, pupils bilaterally equal and reactive Chest: Normal vesicular breath sounds, no added sounds, equal good air entry bilaterally CVS: S1-S2 regular, no murmurs, no tachycardia, no gallops, no rubs Abdomen: Soft, tender in left lower quadrant, no organomegaly, hyperactive bowel sounds present Neuro: No focal deficits, no facial deformity, AO x3, power 5/5 in all limbs Urinary Catheter Management: Simmons: Cath Placed During This Visit: yes Reason for Continuing Indwelling Catheter: Accurate Measurement of Urinary Output in Critically Ill Patients Urinary Catheter Date of Insertion: 07/04/24 Urinary Catheter Time of Insertion: 14:29 Data 07/05/24 09:34 07/05/24 03:02 Micro: Microbiology 07/03/24 16:37 Stool Lactoferrin - Final Stool 07/03/24 11:35 Blood Culture - Preliminary Blood NEGATIVE TO DATE 07/03/24 10:22 Blood Culture - Preliminary Blood NEGATIVE TO DATE A&P Assessment and plan (1) Acute anemia: (2) Diverticulitis large intestine: (3) Shock: (4) Lower GI bleed: (5) Bleeding per rectum: (6) Sensorineural deafness: Plan 59-year-old female who was recently for lower GI bleed received 1 unit of blood transfusion and underwent EGD and sigmoidoscopy where she was not found to have any active site of bleeding presents to the ER today because of bleeding per rectum and left lower quadrant abdominal pain. Shock: Most likely hemorrhagic. Less likely septic. Patient tachycardic again today. Seems to be having impending shock. Keep mean artery pressure 65. If needed will start Levophed. Patient continues to have soft blood pressures. Continue with NS at 100 cc/h. Start on IV albumin every 8 Lower GI bleed/bleeding per rectum: Underwent EGD and sigmoidoscopy recently. Could not get complete colonoscopy because of poor oral prep. Surgery consulted. No plan for colonoscopy for now given concerns for diverticulitis. Appreciate CT abdomen pelvis. No concern for mesenteric ischemia for now. Lactate within normal limits. Less likelihood of inflammatory bowel disease though cannot be ruled out. Appreciate repeat ESR and CRP. Seems to be stable. CRP trending down. As patient continues to have episodes of lower GI bleed will plan for CTA abdomen pelvis. Repeat Lactic acid. Continue Protonix 40 mg twice daily. Acute anemia: Hemoglobin stable at 8.3. Patient received overall 3 unit of blood transfusion. Patient's hemoglobin down to 7.3 again today. Having impending shock. Will transfuse 2 more unit of PRBC. Start on IV iron supplementation. Appreciate vitamin B12 and folate levels. Continue to monitor hemoglobin every 6 hours. INR normal. Target hemoglobin more than 7 if patient remains hemodynamically stable. If develops hemodynamic instability will transfuse again. Diverticulitis: Seen on CT abdomen/pelvis. Follow-up blood culture, stool studies pending. Continue with IV Zosyn for now. Rule out C. difficile. Will request consulted surgeon to evaluate the patient again today. Goals of care: Discussed in detail with patient's mother at bedside who interpreted also for patient. Discussed that patient is having large amount of blood loss because of GI bleed. Discussed unfortunately she possibly would not need a colonoscopy for now because of concerns for diverticulitis which puts her at a higher risk of perforation. Discussed plan for now would be to continue with IV antibiotics with blood transfusions as needed. Case bleeding does not resolve or improve in next 24 to 48 hours might have to transfer her to a tertiary center where gastroenterology or IR are available. Patient and mother verbalized understanding and agreeable with current treatment plan. Continue other chronic medications including memantine, levothyroxine. Clear liquid diet Protonix OPD prophylaxis SCD for DVT prophylaxis. PDMP PDMP Reviewed: Not Reviewed Attestations 2 Medical Necessity Statement*: Requires further hospitalization for management of hemorrhagic shock in setting of lower GI bleed requiring multiple blood transfusions in setting of diverticulitis Critical Care Time: The high probability of a clinically significant, sudden or life threatening deterioration of the patient's [hematological, cardiac, GI] system(s) required my full and direct attention, intervention and personal management. The critical care time is as shown. This time is in addition to time spent performing any reported procedures but includes the following: [x] Data and vital sign review and interpretation [x] Patient assessment, examination and intervention [x] Documentation [x] Medication orders and management Critical Care Time (min): 90 Coding Level of Care Code Critical Care >/= 30 minutes Critical care time (in minutes): 90 The high probability of a clinically significant, sudden or life threatening deterioration, as referenced in this documentation, required my full and direct attention, intervention and personal management. The critical care time shown is in addition to time spent performing any reported separately billable procedures and includes the following: [x] Data and vital sign review and interpretation [x ] Patient assessment, examination and intervention [x] Medication orders and management [x] Patient/Family updates as able [x] Care Coordination and Documentation. Diagnoses Acute anemia D64.9 Diverticulitis large intestine K57.32 Shock R57.9 Lower GI bleed K92.2 Bleeding per rectum K62.5 Sensorineural deafness H90.5
[2024-07-05] MEDS: iohexol 350 mg/mL 500 mL Btl (per mL) IV (14:33)
[2024-07-05] MEDS: albumin 25 G/100 ML BAG 60 G IV (14:51)
[2024-07-05 16:48] LABS: Basophils % 0.5 %; Eosinophils % 0.2 %; Hematocrit 24.1 % (36-47); Lymphocytes # 1.5 10^3/uL (0.8-4.8); Lymphocytes % 18.2 %; Mean Corpuscular HGB Conc 32.4 g/dL (30-55); Mean Corpuscular Volume 92.7 fl (85-98); Mean Platelet Volume 8.7 fL (7.4-10.4); Monocytes # 0.5 10^3/uL (0.2-0.9); Monocytes % 6.4 %; Neutrophils # 6.13 10^3/uL (1.8-7.7); Neutrophils % 73.7 %; Nucleated Red Blood Cells % 0.2 %; Platelet Count 191 10^3/cmm (157-399); Red Cell Distribution Width 16.9 % (12.1-15.1); White Blood Count 8.31 10^3/uL (3.29-11.43)
[2024-07-05 17:07] LABS: Lactic Sepsis W/Reflex 0.6 mmol/L (0.5-2.2)
--- NOTE | 2024-07-05 17:37 | PC.NURSE ---
report called to family tarun notified
[2024-07-05] MEDS: norepinephrine 4 MG/250 ML BAG 7.5 MG IV (17:45)
--- NOTE | 2024-07-05 18:19 | PC.NURSE ---
shift summary: multiple bloody loose stools throughout shift, bp on lower side see vs. patient to be transferred to [facility], started on levo per MAY. family aware of plan
--- NOTE | 2024-07-05 19:14 | PC.NURSE ---
off unit with [facility], sister at bedside
== END 2024-07-05 19:19 | disposition short-term general hospital (02) | DRG 377 ==
LOC: ER 13:31 → ICU 13:36
PROVIDERS: Physician Assistant; Admitting Provider Student in an Organized Health Care Education/Training Program; Emergency Provider Family Medicine; PCP Family Medicine; Visit Provider Student in an Organized Health Care Education/Training Program
DX: K57.33 Diverticulitis of large intestine without perforation or abscess with bleeding (principal); R57.8 Other shock; E03.9 Hypothyroidism, unspecified; H91.3 Deaf nonspeaking, not elsewhere classified; I10 Essential (primary) hypertension; G43.909 Migraine, unspecified, not intractable, without status migrainosus; D64.9 Anemia, unspecified; Z79.899 Other long term (current) drug therapy; Z79.82 Long term (current) use of aspirin; Z79.890 Hormone replacement therapy; Z88.6 Allergy status to analgesic agent; Z88.0 Allergy status to penicillin; Z88.2 Allergy status to sulfonamides; Z88.8 Allergy status to other drugs, medicaments and biological substances
CPT/HCPCS: 36415; 36430; 36573; 36592; 51702; 71045; 74174; 74177; 80053; 80061; 81001; 82607; 82746; 83036; 83540; 83550; 83605; 83630; 83735; 84100; 84145; 85014; 85018; 85025; 85610; 85651; 86140; 86850; 86900; 86920; 87040; 87045; 87177; 87209; 87427; 87449; 87493; 94664; 96365; 99285; C1751; J1171; J1756; J2270; J2470; J2543; J3480; J7030; J9999; P9016; P9046

== ENCOUNTER → 2024-09-11 10:26 | Outpatient (BNVA) | payer MEDICARE, MEDICAID, SELFPAY | PROVIDERS: PCP Family Medicine; Visit Provider Specialist | DX: G43.711 Chronic migraine without aura, intractable, with status migrainosus (principal); M54.2 Cervicalgia | CPT/HCPCS: 99214 ==